=== PATIENT | female | born 1935 | race Caucasian/White ===

== ENCOUNTER 2020-11-08 12:33 | Inpatient (IN) | payer MEDICARE, OTHER, SELFPAY ==
[2020-11-08] VITALS (23 sets, daily range): BP systolic 113–178; BP diastolic 43–89; PULSE 45–78; RESP 11–25; TEMP 35.5–36.4; O2SAT 93–99; BMI 40.4
--- NOTE | 2020-11-08 | SCC_ITS ---
Procedure Done: Placement of 23 cm long 16 Yi AshSplit tunneled hemodialysis catheter in the right internal jugular vein Fluoroscopic guidance and interpretation for placement of catheter Ultrasound guidance to access the right internal jugular vein 56.2 seconds of fluoroscopic guidance, for a cumulative dose of 11.35 mGy, was provided to Dr. Cohen by the radiology department. C-arm images of the chest were saved for the patient's permanent record. JENNIE
--- NOTE | 2020-11-08 | SC_ITS ---
WS: [id number] C-arm fluoroscopy of the right chest for dialysis catheter insertion, 11/08/2020 Clinical Data: CVA Comparison: Portable chest, 11/08/2020 Findings: The right dialysis catheter has been inserted into the right internal jugular vein and ends in the craig perior vena cava. SC/C-arm FL for CVA [id number] Impression: Insertion of right dialysis catheter.
--- NOTE | 2020-11-08 12:57 | XR_ITS ---
WS: [id number] Portable AP upright chest, 11/08/2020 Clinical Data: CHF, dyspnea, fluid overload Comparison: PA and lateral chest, 02/12/2016. Findings: Bilateral basilar pleural opacities are present which may represent a combination of consol idation, atelectasis and effusion. The heart is slightly large. The pulmonary vascularity is not incr eased. No nodules or masses are seen. The aortic arch and descending aorta show calcification and tor tuosity. Midline sternotomy sutures and mediastinal clips are noted. There are monitor leads on the c hest wall. XR/XR chest 1V portable [id number] Impression: 1. Bilateral basilar pleural opacities which may represent consolidation, atele ctasis and/or effusion. 2. Atherosclerosis and cardiomegaly.
--- NOTE | 2020-11-08 12:59 | ECG_ITS ---
[facility] Test Date: 2020-11-08 Pat Name: Cindy Mena Department: Room: Gender: Female Sanitation Lead: : 1935 Requested By: Bebeto Dia Order Number: [id number] MD: Tamra Iyer M.D. Measurements Intervals Cosby Rate: 61 P: 240 NE: 141 QRS: -61 QRSD: 159 T: 110 QT: 479 QTc: 483 Interpretive Statements SINUS RHYTHM RIGHT BUNDLE BRANCH BLOCK [120+ ms QRS DURATION, UPRIGHT V1, 40+ ms S IN I/aVL/V4/V5/V6] LEFT ANTERIOR FASCICULAR BLOCK [QRS AXIS <= -45, QR IN I, RS IN II] MODERATE T-WAVE ABNORMALITY, CONSIDER LATERAL ISCHEMIA [-0.1+ mV T WAVE IN I/aVL/V5/V6] Compared to ECG 11/28/2015 05:35:01 Left anterior fascicular block now present T-wave abnormality now present Possible ischemia now present Junctional rhythm no longer present Left-axis deviation no longer present Electronically Signed On 11-09-2020 14:17:13 CDT by Tamra Iyer M.D. [email or web address][x] Media/store/NU/[id number] f
[2020-11-08 13:24] LABS: Basophils % 0.1 %; Eosinophils # 0.1 10^3/uL (0.0-0.8); Eosinophils % 0.9 %; Hematocrit 32.2 % (37.0-47.0); Hemoglobin 10.1 g/dL (11.5-15.3); Lymphocytes # 1.1 10^3/uL (0.8-4.8); Lymphocytes % 9.4 %; Mean Corpuscular HGB Conc 31.4 g/dL (30.0-36.0); Mean Corpuscular Hemoglobin 31.7 pg (28.0-34.0); Mean Corpuscular Volume 100.9 fL (81-99); Mean Platelet Volume 12.2 fL (7.4-10.4); Monocytes % 8.1 %; Neutrophils # 9.66 10^3/uL (1.8-7.7); Nucleated Red Blood Cells % 0 %; Platelet Count 143 10^3/cmm (130-400); Red Blood Count 3.19 10^6/uL (4.1-5.3); Red Cell Distribution Width 16.8 % (12.1-15.1); White Blood Count 11.9 10^3/uL (4.0-10.0)
[2020-11-08 13:38] LABS: INR 1.21 (0.8-1.2)
--- NOTE | 2020-11-08 13:52 | PC.PHAR ---
pt states she takes care of her own medications-pt states she has vitamin d 33218 units but hasnt taken it-states it is -ext med history doesnt show when last filled-medication on pts assisted living papers-pt states she takes lasix everyday-ext med history shows last filled on 11/01/20 30d/s for 20mg daily for 7 days then prn-pts assisted living papers has the pt takes lantus solostar 12 units hs pt states she uses 20 units hs-pt states she only takes sodium bicarb 325mg one tab bid-ext med history shows last filled on 07/12/20 30d/s for 3 tabs bid-pts assisted living paper has 2 tabs tid-pts assisted living papers has the pt takes voltassa 8.4gm bid,ultra kidney complex daily,and pepcid 20mg daily pt states she does not take those medications
[2020-11-08 13:56] LABS: Lactate (Lactic Acid level) 0.8 mmol/L (0.5-2.2)
[2020-11-08 13:58] LABS: Troponin(5th) Baseline 437 ng/L (0-10)
[2020-11-08 14:02] LABS: Alanine Aminotransferase 16 U/L (0-33); Albumin Level 3.5 g/dL (3.5-5.2); Alkaline Phosphatase 73 IU/L (35-105); Anion Gap 23.9 (5-19); Aspartate Amino Transferase 17 U/L (0-32); Calcium 7.7 mg/dL (8.5-10.5); Carbon Dioxide 12 mmol/L (22-29); Chloride 108 mmol/L (98-107); Globulin 2.6 g/dL (1.3-4.6); Glucose 123 mg/dL (65-115); Potassium 5.9 mmol/L (3.5-5.1); Sodium 138 mmol/L (136-145); Total Bilirubin 0.4 mg/dL (0.15-1.2); Total Protein 6.1 g/dL (6.6-8.7)
[2020-11-08 14:22] LABS: Osmolality Calculated 338 mOsm/kg (285-295)
[2020-11-08 14:23] LABS: Blood Urea Nitrogen 155 mg/dL (8-23)
[2020-11-08 14:32] LABS: NT Pro B Type Natriuretic Pept > 7000 pg/mL (0-450)
--- NOTE | 2020-11-08 14:55 | W.ED.SOB ---
HPI - SOB/Dyspnea General: Chief Complaint: Shortness of Breath/Dyspnea Stated Complaint: SOB Time Seen by Provider: 11/08/20 12:49 History of Present Illness: HPI Narrative: The patient is an 85-year-old female with past medical history end-stage renal disease but has been refusing to get a dialysis catheter placed and refusing dialysis for some time at her primary care doctors. She went to her doctor's office today and was sent to the ER after she was found to have crackles on exam and be fluid overloaded peripherally. The patient comes in today and says she just does not feel right but that she is fluid overloaded and is slightly short of breath. Denies chest pain. She also has history of diabetes, coronary artery disease with CABG in 2016, hypertension, hypothyroid, CVA in 2011. Recent note from primary care doctor says no history of CHF but in the past week was started on Lasix. The patient reports she does have a history of CHF MD elicited complaint: shortness of breath Pertinent past history: congestive heart failure and diabetes Timing: constant Severity: moderate Exacerbating factors: lying flat and exertion Relieving factors: nothing Known history of: congestive heart failure, diabetes and other (End-stage renal disease) Associated symptoms: Reports orthopnea; Deny chest pain, dizziness, extremity pain, fever(s), nausea, polyuria or vomiting Review of Systems General: Reports: 10 or more systems reviewed and unremarkable except in HPI and below Const: Denies: fever(s) Eyes: Denies: change in vision, blurry vision or eye redness ENMT: Denies: throat pain, swelling of lips/tongue, ear or mastoid pain or nasal congestion Card: Reports: orthopnea; Denies: chest pain Resp: Reports: dyspnea; Denies: productive cough or non-productive cough GI: Denies: nausea or vomiting : Denies: flank pain, difficulty voiding, urinary frequency or urinary urgency Musc: Denies: neck pain, back pain, extremity pain, joint pain, joint redness, limited range of motion or muscle weakness Skin/Breast: Denies: rash, pruritus, erythema, skin pain or skin tenderness Neuro: Denies: headache(s), numbness in extremities, weakness in extremities, sensory changes, difficulty walking, dizziness, confusion or Slurred speech present Psych: Denies: anxiety or depression Endo: Denies: polyuria All/Imm: Denies: urticaria, throat swelling or tongue swelling PFSH ED PFSH: Medical History CAD (coronary artery disease) CHF (congestive heart failure) Chronic kidney disease, stage 5, kidney failure CVA (cerebral vascular accident) DM type 2 (diabetes mellitus, type 2) Hypothyroidism Surgical History H/O hernia repair H/O: hysterectomy Hx of CABG Hx of tonsillectomy Family History Brother Myocardial infarction Chronic kidney disease (CKD) Social History Smoking and tobacco status: never smoked Alcohol intake: never Substance/Drug Use: never Lives independently: No Housing: Assisted Living Facility Marital status: / Physical Exam Const: COMMON NORMALS: no acute distress, average body habitus, patient oriented x3, no limitations, healthy appearing, alert and well nourished GENERAL APPEARANCE: cooperative, comfortable, well kempt and well developed ORIENTATION/CONSCIOUSNESS: Yes awake, Yes oriented to person, Yes oriented to place and Yes oriented to time HENMT: COMMON NORMALS: normocephalic, external ears normal and Normal external nose present HEAD & SCALP: normal to inspection and normocephalic NOSE: Normal external nose present EXTERNAL EAR: Yes external ears normal MOUTH: Normal oral and palatal mucosa present THROAT: posterior oropharynx normal Eye: COMMON NORMALS: Equal, round and reactive pupils present and EOMs intact bilaterally GENERAL EYE: appearance normal, both eyes and all related structures PUPIL: Yes Equal, round and reactive pupils present Neck/C-Spine: COMMON NORMALS: full ROM, no lymphadenopathy, no meningeal signs and no JVD GENERAL: Yes normal visual inspection Lymph: LYMPHATIC: no lymphadenopathy noted Chest: COMMONS NORMALS: normal inspection of the chest and normal palpation of entire chest wall Resp: COMMON NORMALS: normal respiratory effort, No retractions, No use of accessory muscles and percussion normal EFFORT & INSPECTION: Yes able to speak in complete sentences PERCUSSION: percussion normal OTHER: Mild crackles in lower mild crackles in lower lung carcamo. Cardio: COMMON NORMALS: no JVD, regular rate, regular rhythm, S1 normal heart sound present, S2 normal heart sound present and Peripheral pulses 2+ throughout RATE: regular rate RHYTHM: regular rhythm HEART SOUNDS: S1 normal heart sound present and S2 normal heart sound present PERIPHERAL PULSES: Peripheral pulses 2+ throughout GI: COMMON NORMALS: Normal to inspection, nondistended, normoactive bowel sounds present, Soft to palpation, non-tender and no masses INSPECTION: Yes normal to inspection PALPATION: Yes Soft to palpation : COMMON NORMALS: Yes no CVA tenderness BLADDER/KIDNEY EXAM: Yes no CVA tenderness Back/Pelvis: COMMON NORMALS: no CVA tenderness, thoracic and lumbar spine normal to inspection, no thoracic nor lumbar tenderness and thoraco-lumbar ROM normal Extremity: COMMON NORMALS: normal to inspection, full ROM, capillary refill normal, no joint enlargement and no pedal edema NARRATIVE EXTREMITY EXAM: 3+ pitting edema in lower extremities to knees. GENERAL: Yes normal exam except as noted Neuro: COMMON NORMALS: patient oriented x3, CN's II-XII intact bilaterally, moves all extremities, no focal motor deficits, no sensory deficits noted and gait normal SENSORIUM/ORIENTATION: Yes alert, Yes oriented to person, Yes oriented to place and Yes oriented to time MENINGEAL SIGNS: Yes no meningeal signs Psych: COMMON NORMALS: mental status grossly normal, Normal thought process present, cooperative, normal affect and speech normal APPEARANCE: Yes well kempt ATTITUDE: Yes calm SPEECH: Yes normal speech THOUGHT PROCESS: Normal thought process present Skin: COMMON NORMALS: no rashes or lesions noted GENERAL SKIN EXAM: no rashes or lesions noted Course Vital Signs: Vital signs: Vital Signs Temperature 97.3 F L 11/08/20 15:55 Pulse Rate 56 L 11/08/20 15:55 Respiratory Rate 16 11/08/20 15:55 Blood Pressure 113/51 11/08/20 15:55 Pulse Oximetry 95 11/08/20 15:55 MDM - SOB/Dyspnea MDM Narrative: Medical decision making narrative: The patient comes to the ER clearly fluid overloaded with peripheral edema and crackles in her lower lung carcamo. She has end-stage renal disease and has been refusing dialysis as outpatient and does not have a catheter placed. Today she feels she will accept it. BUN 155 creatinine 5.9, potassium 5.9. She was given IV Lasix and Kayexalate. Discussed with nephrology who recommends placing a tunneled catheter and she will see her and decide when dialysis will be. Discussed with Dr. Cohen who will place a tunneled catheter. Discussed with Dr. Patel who accepts for admission to the ICU Lab Data: Labs: Lab Results 11/08/20 11/08/20 11/08/20 Range/Units 13:15 13:15 13:15 WBC 11.9 H (4.0-10.0) 10^3/ uL RBC 3.19 L (4.1-5.3) 10^6/u L Hgb 10.1 L (11.5-15.3) g/dL Hct 32.2 L (37.0-47.0) % MCV 100.9 H (81-99) fL MCH 31.7 (28.0-34.0) pg MCHC 31.4 (30.0-36.0) g/dL RDW 16.8 H (12.1-15.1) % Plt Count 143 (130-400) 10^3/c mm MPV 12.2 H (7.4-10.4) fL Neut % (Auto) 81.0 % Lymph % (Auto) 9.4 % [place] % (Auto) 8.1 % Eos % (Auto) 0.9 % Baso % (Auto) 0.1 % Neut # (Auto) 9.66 H (1.8-7.7) 10^3/u L Lymph # (Auto) 1.1 (0.8-4.8) 10^3/u L [place] # (Auto) 1.0 H (0.2-0.9) 10^3/u L Eos # (Auto) 0.1 (0.0-0.8) 10^3/u L Baso # (Auto) 0.0 (0.0-0.1) 10^3/u L Nucleated RBC % (a uto) 0 % Nucleated RBCs # 0.0 /100WBC PT 15.70 H (12.1-14.9) SECO NDS INR 1.21 H (0.8-1.2) Sodium 138 (136-145) mmol/L Potassium 5.9 H (3.5-5.1) mmol/L Chloride 108 H (98-107) mmol/L Carbon Dioxide 12 L (22-29) mmol/L Anion Gap 23.9 H (5-19) BUN 155 H* (8-23) mg/dL Creatinine 5.9 H* (0.5-0.9) mg/dL GFR Calculation Not Reportable Glucose 123 H (65-115) mg/dL Calculated Osmolal ity 338 H (285-295) mOsm/k g Lactate (0.5-2.2) mmol/L Calcium 7.7 L (8.5-10.5) mg/dL Total Bilirubin 0.4 (0.15-1.2) mg/dL AST 17 (0-32) U/L ALT 16 (0-33) U/L Alkaline Phosphata se 73 (35-105) IU/L Troponin T Baselin e (0-10) ng/L Troponin T 120 Min [place] (0-10) ng/L Delta Troponin T (0-10) ABS# NT-Pro-B Natriuret Pep > 7000 H (0-450) pg/mL Total Protein 6.1 L (6.6-8.7) g/dL Albumin 3.5 (3.5-5.2) g/dL Globulin 2.6 (1.3-4.6) g/dL 11/08/20 11/08/20 11/08/20 Range/Units 13:15 13:15 15:10 WBC (4.0-10.0) 10^3/ uL RBC (4.1-5.3) 10^6/u L Hgb (11.5-15.3) g/dL Hct (37.0-47.0) % MCV (81-99) fL MCH (28.0-34.0) pg MCHC (30.0-36.0) g/dL RDW (12.1-15.1) % Plt Count (130-400) 10^3/c mm MPV (7.4-10.4) fL Neut % (Auto) % Lymph % (Auto) % [place] % (Auto) % Eos % (Auto) % Baso % (Auto) % Neut # (Auto) (1.8-7.7) 10^3/u L Lymph # (Auto) (0.8-4.8) 10^3/u L [place] # (Auto) (0.2-0.9) 10^3/u L Eos # (Auto) (0.0-0.8) 10^3/u L Baso # (Auto) (0.0-0.1) 10^3/u L Nucleated RBC % (a uto) % Nucleated RBCs # /100WBC PT (12.1-14.9) SECO NDS INR (0.8-1.2) Sodium (136-145) mmol/L Potassium (3.5-5.1) mmol/L Chloride (98-107) mmol/L Carbon Dioxide (22-29) mmol/L Anion Gap (5-19) BUN (8-23) mg/dL Creatinine (0.5-0.9) mg/dL GFR Calculation Glucose (65-115) mg/dL Calculated Osmolal ity (285-295) mOsm/k g Lactate 0.8 (0.5-2.2) mmol/L Calcium (8.5-10.5) mg/dL Total Bilirubin (0.15-1.2) mg/dL AST (0-32) U/L ALT (0-33) U/L Alkaline Phosphata se (35-105) IU/L Troponin T Baselin e 437 H* (0-10) ng/L Troponin T 120 Min [place] 403.5 H (0-10) ng/L Delta Troponin T -33.5 L (0-10) ABS# NT-Pro-B Natriuret Pep (0-450) pg/mL Total Protein (6.6-8.7) g/dL Albumin (3.5-5.2) g/dL Globulin (1.3-4.6) g/dL Discharge Plan Discharge Patient Disposition: Admitted As Inpatient Admit Provider: Ishan Cohen Clinical Impression: Chronic kidney disease, stage 5, kidney failure, Fluid overload, Acute hyperkalemia, Elevated troponin Condition: Stable Coding Level of Care Code ED Aluminum Can Collector for Chg Fwd Exam Comprehensive
--- NOTE | 2020-11-08 15:39 | PM.CONSULT ---
Providers/Reason For Consult Consulting Physician/Specialty*: Mali Castillo D.O., telenephrology Reason for Consult*: ESRD Attending Physician: Ishan Cohen MD Primary Care Provider: Kash Munoz DO History of Present Illness History of Present Illness Cindy Mena is a 85 year old female presenting to ER for treatment of ESRD. Had seen outpatient manager technology Dr Green in past and refused HD. She says she has changed her mind because she needs to feel better. + weakness, swelling, shortness of breath Meds/Allergies Home Medications and Allergies Home Medications Medication Instructions Recorded Confirmed Last Taken Type Lactobacillus rhamnosus GG 1 cap PO DAILY PRN 11/08/20 11/08/20 Unknown History [Culturelle] Thyroid Complex 1 tab PO DAILY 11/08/20 11/08/20 Unknown History acetaminophen [Tylenol Extra 1,000 mg PO Q6H PRN 11/08/20 11/08/20 Unknown History Strength] albuterol sulfate 2 puff INHALATION Q4H PRN 11/08/20 11/08/20 Unknown History carvedilol See Rx Instructions .ROUTE .COMPLEX 11/08/20 11/08/20 Unknown History ergocalciferol (vitamin D2) 50,000 unit PO Q7D 11/08/20 11/08/20 Unknown History fluticasone propionate [Flonase] 1 spray INTRANASAL BID PRN 11/08/20 11/08/20 Unknown History furosemide 20 mg PO QAM 11/08/20 11/08/20 11/08/20 History insulin glargine [Lantus Solostar 20 unit SUBCUT BEDTIME 11/08/20 11/08/20 11/07/20 History U-100 Insulin] levothyroxine 125 mcg PO DAILY 11/08/20 11/08/20 11/07/20 History nystatin [Nystop] See Rx Instructions .ROUTE .COMPLEX 11/08/20 11/08/20 Unknown History sodium bicarbonate 325 mg PO BID 11/08/20 11/08/20 11/07/20 History Allergies Allergy/AdvReac Type Severity Reaction Status Date / Time ibuprofen [From Advil] Allergy Unknown Verified 11/08/20 13:52 Penicillins Allergy Unknown Verified 11/08/20 13:52 Vitals/I&O/Wt Last Vital Signs Temp 97.6 F 11/08/20 12:46 Pulse 57 L 11/08/20 13:49 Resp 15 11/08/20 13:49 BP 154/64 11/08/20 13:49 Pulse Ox 98 11/08/20 13:49 Weight last 48 hrs Weight 90.718 kg Physical Exam Const: COMMON NORMALS: no acute distress GENERAL APPEARANCE: Edematous Data Imaging^: CXR: Radiologist's impression: 1. Bilateral basilar pleural opacities which may represent consolidation, atelectasis and/or effusion. 2. Atherosclerosis and cardiomegaly. pulmonary vasculature not increased A&P Additional A&P Information 1. ESRD, likely etiology diabetic nephropathy 2. Metabolic acidosis 3. Hyperkalemia 4. Volume overload 5. Anemia I spoke with patient in ER. She understands procedure for placement of tunneled dialysis catheter. She is agreeable to catheter placement. I explained indications for dialysis and hemodialysis procedure. She would like to proceed with hemodialysis and understands this treatment requires going to a dialysis center 3x weekly. Until HD is started, will give IV lasix, 50 mEq IV NaHCO3, oral kayeyxlate, increase oral NaHCO3. Renal ultrasound ordered - there is no renal imaging in our system. Labs to include PTH, phos, hepatitis serologies, iron studies, B12 Consult Attestations Medical Necessity Statement: see above Time Spent in Patient Care: Greater than 35 minutes Coding Level of Care Code Acute Manufacturing Maintenance Manager for Shilpa Bowden
[2020-11-08] MEDS: sodium polystyrene sulfonate 15 gm/60 mL Btl PO (15:48)
--- NOTE | 2020-11-08 15:50 | PC.NURSE ---
pt taken by OPS for dialysis port placement
[2020-11-08 15:52] LABS: Troponin 5 2HR 403.5 ng/L (0-10)
[2020-11-08 15:53] LABS: Troponin 5 2HR Delta -33.5 ABS# (0-10)
--- NOTE | 2020-11-08 15:54 | P.HP_ITS ---
Providers/Chief Complaint Primary Care Provider: Kash Munoz DO Chief Complaint: SOB History of Present Illness Pleasant 85-year-old lady with history of CAD, CABG, CHF, EF 40-50% in 2016, CVA, DM 2, ESRD following with nephrology Dr. Green, previously with recommended hemodialysis although she had been reluctant to start, has been getting progressively more short of breath, had seen her primary provider last week and at the office found to have fluid overload, edema, lungs sounding wet and with rhonchi, was started on course of prednisone, albuterol inhaler, Lasix 20mg, she reports subsequently on and off urine output, sometimes up to 3 times a day with the medication. In ER she is noted fluid overloaded, with creatinine 5.9, hyperkalemia 5.9, metabolic acidosis, anion gap 23.9, bicarb 12. Incidentally noted NT proBNP more than 7000, troponin IV 137 of of unclear significance in the setting of renal dysfunction. She denies any chest pain or pressure. She has been short of breath. Has anasarca with swelling in lower extremities up to thighs. She received Lasix, Kayexalate in ER. She reports would now be agreeable to hemodialysis if recommended and so nephrology and surgery are consulted in ER to assist her with this. She lives in assisted living. She states she takes all her home medications except for insulin. With regards to CODE STATUS she would not want to have repeat resuscitation attempts. Nor would she want protracted life support without chance of recovery. She states she has also advanced directives written out. She has had her COVID-19 vaccinations completed. Review of Systems Const: Denies: fever(s), chills, body aches or malaise Eyes: Denies: change in vision or eye redness ENMT: Denies: throat pain, oral sores or ear or mastoid pain Card: Reports: edema and dyspnea on exertion; Denies: chest pain or pre-syncope Resp: Reports: dyspnea; Denies: productive cough, change in phlegm color or hemoptysis GI: Reports: vomiting (1 episode this morning); Denies: abdominal pain, nausea, diarrhea, constipation, hematochezia or melena : Denies: flank pain, urinary frequency or hematuria Musc: Denies: back pain, joint swelling or joint redness Skin/Breast: Denies: rash, sores or new lesions Neuro: Denies: headache(s), numbness in extremities, weakness in extremities, dizziness, confusion or seizure-like activity Endo: Denies: polyuria or polydipsia Harlan/Lymph: Denies: easy bleeding or purpura All/Imm: Denies: urticaria, throat swelling or tongue swelling Medications/Allergies Home Medications Medication Instructions Recorded Confirmed Last Taken Type Lactobacillus rhamnosus GG 1 cap PO DAILY PRN 11/08/20 11/08/20 Unknown History [Culturelle] Thyroid Complex 1 tab PO DAILY 11/08/20 11/08/20 Unknown History acetaminophen [Tylenol Extra 1,000 mg PO Q6H PRN 11/08/20 11/08/20 Unknown History Strength] albuterol sulfate 2 puff INHALATION Q4H PRN 11/08/20 11/08/20 Unknown History carvedilol See Rx Instructions .ROUTE .COMPLEX 11/08/20 11/08/20 Unknown History ergocalciferol (vitamin D2) 50,000 unit PO Q7D 11/08/20 11/08/20 Unknown History fluticasone propionate [Flonase] 1 spray INTRANASAL BID PRN 11/08/20 11/08/20 Unknown History furosemide 20 mg PO QAM 11/08/20 11/08/20 11/08/20 History insulin glargine [Lantus Solostar 20 unit SUBCUT BEDTIME 11/08/20 11/08/20 11/07/20 History U-100 Insulin] levothyroxine 125 mcg PO DAILY 11/08/20 11/08/20 11/07/20 History nystatin [Nystop] See Rx Instructions .ROUTE .COMPLEX 11/08/20 11/08/20 Unknown History sodium bicarbonate 325 mg PO BID 11/08/20 11/08/20 11/07/20 History Allergies Allergy/AdvReac Type Severity Reaction Status Date / Time ibuprofen [From Advil] Allergy Unknown Verified 11/08/20 13:52 Penicillins Allergy Unknown Verified 11/08/20 13:52 PFSH Acute PFSH: Medical History CAD (coronary artery disease) CHF (congestive heart failure) Chronic kidney disease, stage 5, kidney failure CVA (cerebral vascular accident) DM type 2 (diabetes mellitus, type 2) Hypothyroidism Surgical History H/O hernia repair H/O: hysterectomy Hx of CABG Hx of tonsillectomy Family History Brother Myocardial infarction Chronic kidney disease (CKD) Social History Smoking and tobacco status: never smoked Alcohol intake: never Substance/Drug Use: never Lives independently: No Housing: Assisted Living Facility Marital status: / Vitals/I&O/Wt Last Vital Signs Temp 97.6 F 11/08/20 12:46 Pulse 57 L 11/08/20 13:49 Resp 15 11/08/20 13:49 BP 154/64 11/08/20 13:49 Pulse Ox 98 11/08/20 13:49 Weight last 48 hrs Weight 90.718 kg Physical Exam Narrative: EXAM NARRATIVE: [id number] at bedside Const: COMMON NORMALS: no acute distress and patient oriented x3 GENERAL APPEARANCE: frail appearing NUTRITIONAL APPEARANCE: obese morbidly obese HENMT: COMMON NORMALS: oropharynx normal Neck/C-Spine: COMMON NORMALS: no JVD Resp: COMMON NORMALS: normal respiratory effort AUSCULTATION: crackles and diminished lung sounds Cardio: COMMON NORMALS: no JVD, regular rhythm, S1 normal heart sound present, S2 normal heart sound present and No murmurs present (Cardio) RHYTHM: regular rhythm HEART SOUNDS: S1 normal heart sound present and S2 normal heart sound present GI: COMMON NORMALS: Normal to inspection, nondistended, normoactive bowel sounds present, Soft to palpation and non-tender PALPATION: Yes Soft to palpation OTHER: Large pannus Extremity: COMMON NORMALS: no joint enlargement GENERAL: Yes edema (4+ LE edema extending gradually up to mid thighs) Neuro: COMMON NORMALS: patient oriented x3 and moves all extremities Skin: COMMON NORMALS: no rashes or lesions noted GENERAL SKIN EXAM: no rashes or lesions noted Data : 11/08/20 13:15 11/08/20 13:15 A&P Assessment and plan (1) Dyspnea: This is suspected secondary due to tubular vision, fluid overload. She does have mild leukocytosis, reports some cough, although otherwise afebrile, no other respiratory complaints. No other signs of COVID-19. Completed her vaccinations. Discussed with her lower possibility of concomitant pneumonia, although this appears less likely currently. Will monitor for now. Will reassess chest x- ray. In case suspicion persists or other signs of pneumonia, will add antibiotic. Additionally treat CHF, ESRD. Status: Acute (2) Acute exacerbation of CHF (congestive heart failure): Acute systolic congestive heart failure exacerbation. Anasarca. Received 40 mg IV push Lasix in ER. Will continue with Lasix, she is being assessed and prepared for possible hemodialysis given history of progressed chronic kidney disease, previously recommendation for dialysis, and currently other comorbidities. We will go ahead and request echocardiogram given CHF, last echo in 2016 showing 40-50% EF. Noted troponin elevation, although no chest pain, suspect this is related to demand ischemia in the setting of progressive renal failure. Complete troponin EKG series. TTE as above. Continue cardiac medications. Check TSH. Status: Acute (3) Chronic kidney disease, stage 5, kidney failure: She wanted me to discuss also with her primary provider with regards to dialysis, and we did. Appreciate nephrology consultation. Surgical consultation for access. Additional studies requested by nephrology including renal ultrasound. Status: Acute (4) Acute hyperkalemia: Received Lasix, Kayexalate. Appreciate nephrology recommendation. Continue bicarbonate. Preparations for hemodialysis. Status: Acute (5) Elevated troponin: Noted troponin elevation, although no chest pain, suspect this is related to demand ischemia in the setting of progressive renal failure. Complete troponin EKG series. TTE as above. Continue CAD medications. Status: Acute Additional A&P Information Intertrigo: Yeast infection under pannus, continue nystatin. DM2: Continue insulin, add SSI CAD, status post CABG Chronic systolic CHF History of CVA Hypothyroidism: Check TSH Attestations Medical Necessity Statement*: Admission of over 2 midnights is going to be needed for assessment management of progression of chronic kidney disease, acute CHF exacerbation in a lady of advanced age with underlying history of CAD and other comorbidities. Coding Level of Care Code Acute Bpm Architect for [facility] Fwd Diagnoses Dyspnea R06.00 Acute exacerbation of CHF (congestive heart failure) I50.9 Chronic kidney disease, stage 5, kidney failure N18.5 Acute hyperkalemia E87.5 Elevated troponin R77.8
[2020-11-08] MEDS: sodium chloride 0.9% (100 ml) 100 ML 30 ML (15:55)
--- NOTE | 2020-11-08 16:02 | ANES.PREANE2 ---
Pre-Anesthetic Assessment Pre-Anesthetic Assessment: Height/Weight: Height 1.5 m Weight 90.718 kg Temp Pulse Resp BP Pulse Ox 97.6 F 59 L 25 H 158/49 99 11/08/20 12:46 11/08/20 15:50 11/08/20 15:50 11/08/20 15:50 11/08/20 15:50 Preop Diagnosis: arf Proposed Procedure: Operation Date: 11/08/20 16:00 Proposed Procedures p Dialysis Catheter Insertion(Not Applicable) - Ishan Cohen MD Familial anesthetic complications: none Was Beta Marion taken within 24 hours: Yes Was Clonidine taken within 24 hours: N/A Last Intake: 15:00 Social: Social History: No alcohol and No tobacco Exam: Pre-Anes Outpt Exam: alert, oriented x 3, clear to auscultation bilaterally (diminished) and regular rate & rhythm Airway: Submandibular: WNL Cervical ROM: WNL MP: 2 Dentition: False Pulmonary: Pulmonary: JOHNS, Orthopnea and SOB CV/HEM: CV/HEM: CAD (CABGx3 5 years ago), CHF, HTN and HI : : Chronic renal failure Hepatic: Hepatic: None reported GI: GI: GERD Metabolic: Metabolic: DM ([id number]) and Morbid obesity Musc/skel: Musc/skel: Lower Back Pain and OA/DJD Neuropsych: Neuropsych: CVA (2011 right side weakness) Anesthetic Plan: ASA status: 4E Anesthesia: MAC PFS Anesthesia PFSH: Medical History (Updated 11/08/20 @ 16:06 by Joey Patel MD) CAD (coronary artery disease) Chronic kidney disease, stage 5, kidney failure CVA (cerebral vascular accident) DM type 2 (diabetes mellitus, type 2) Hypothyroidism Surgical History (Updated 11/08/20 @ 16:06 by Joey Patel MD) H/O hernia repair H/O: hysterectomy Hx of CABG Hx of tonsillectomy Family History (Updated 11/08/20 @ 16:07 by Joey Patel MD) Brother Myocardial infarction Chronic kidney disease (CKD) Social History Smoking and tobacco status: never smoked Alcohol intake: never Substance/Drug Use: never Lives independently: No Housing: Assisted Living Facility Marital status: / Data Anesthesia CBC & Chem 7: 11/08/20 13:15 11/08/20 13:15 Other Labs: Laboratory Results - last 48 hr 11/08/20 11/08/20 11/08/20 13:15 13:15 13:15 WBC 11.9 H RBC 3.19 L Hgb 10.1 L Hct 32.2 L MCV 100.9 H MCH 31.7 MCHC 31.4 RDW 16.8 H Plt Count 143 MPV 12.2 H Neut % (Auto) 81.0 Lymph % (Auto) 9.4 Brooke % (Auto) 8.1 Eos % (Auto) 0.9 Baso % (Auto) 0.1 Neut # (Auto) 9.66 H Lymph # (Auto) 1.1 Brooke # (Auto) 1.0 H Eos # (Auto) 0.1 Baso # (Auto) 0.0 Nucleated RBC % (auto) 0 Nucleated RBCs # 0.0 PT 15.70 H INR 1.21 H Sodium 138 Potassium 5.9 H Chloride 108 H Carbon Dioxide 12 L Anion Gap 23.9 H BUN 155 H* Creatinine 5.9 H* GFR Calculation Not Reportable Glucose 123 H Calculated Osmolality 338 H Lactate Calcium 7.7 L Total Bilirubin 0.4 AST 17 ALT 16 Alkaline Phosphatase 73 Troponin T Baseline Troponin T 120 Minute Delta Troponin T NT-Pro-B Natriuret Pep > 7000 H Total Protein 6.1 L Albumin 3.5 Globulin 2.6 11/08/20 11/08/20 11/08/20 13:15 13:15 15:10 WBC RBC Hgb Hct MCV MCH MCHC RDW Plt Count MPV Neut % (Auto) Lymph % (Auto) Brooke % (Auto) Eos % (Auto) Baso % (Auto) Neut # (Auto) Lymph # (Auto) Brooke # (Auto) Eos # (Auto) Baso # (Auto) Nucleated RBC % (auto) Nucleated RBCs # PT INR Sodium Potassium Chloride Carbon Dioxide Anion Gap BUN Creatinine GFR Calculation Glucose Calculated Osmolality Lactate 0.8 Calcium Total Bilirubin AST ALT Alkaline Phosphatase Troponin T Baseline 437 H* Troponin T 120 Minute 403.5 H Delta Troponin T -33.5 L NT-Pro-B Natriuret Pep Total Protein Albumin Globulin Cardiac Studies: No Data to Display
--- NOTE | 2020-11-08 16:18 | P.CONIM_ITS ---
Providers/Reason For Consult Consulting Physician/Specialty*: General Surgery Dr. Cohen Reason for Consult*: ESRD Attending Physician: Ishan Cohen MD Primary Care Provider: Kash Munoz DO History of Present Illness History of Present Illness Cindy Mena is a 85 year old female who has end-stage renal disease who had been refusing dialysis until now. Patient presented to emergency room with shortness of breath and decreased urine output. She was noted to have elevated troponin and creatinine was 5.9. Patient has finally agreed to dialysis.. No prior known history of central line placement or clavicle fractures, patient has had a prior CABG Review of Systems General: Reports: 10 or more systems reviewed and unremarkable except in HPI and below Meds/Allergies Home Medications and Allergies Home Medications Medication Instructions Recorded Confirmed Last Taken Type Lactobacillus rhamnosus GG 1 cap PO DAILY PRN 11/08/20 11/08/20 Unknown History [Culturelle] Thyroid Complex 1 tab PO DAILY 11/08/20 11/08/20 Unknown History acetaminophen [Tylenol Extra 1,000 mg PO Q6H PRN 11/08/20 11/08/20 Unknown History Strength] albuterol sulfate 2 puff INHALATION Q4H PRN 11/08/20 11/08/20 Unknown History carvedilol See Rx Instructions .ROUTE .COMPLEX 11/08/20 11/08/20 Unknown History ergocalciferol (vitamin D2) 50,000 unit PO Q7D 11/08/20 11/08/20 Unknown History fluticasone propionate [Flonase] 1 spray INTRANASAL BID PRN 11/08/20 11/08/20 U nknown History furosemide 20 mg PO QAM 11/08/20 11/08/20 11/08/20 History insulin glargine [Lantus Solostar 20 unit SUBCUT BEDTIME 11/08/20 11/08/20 11/07/20 History U-100 Insulin] levothyroxine 125 mcg PO DAILY 11/08/20 11/08/20 11/07/20 History nystatin [Nystop] See Rx Instructions .ROUTE .COMPLEX 11/08/20 11/08/20 Unknown History sodium bicarbonate 325 mg PO BID 11/08/20 11/08/20 11/07/20 History Allergies Allergy/AdvReac Type Severity Reaction Status Date / Time ibuprofen [From Advil] Allergy Unknown Verified 11/08/20 13:52 Penicillins Allergy Unknown Verified 11/08/20 13:52 PFSH Acute PFSH: Medical History CAD (coronary artery disease) CHF (congestive heart failure) Chronic kidney disease, stage 5, kidney failure CVA (cerebral vascular accident) DM type 2 (diabetes mellitus, type 2) Hypothyroidism Surgical History H/O hernia repair H/O: hysterectomy Hx of CABG Hx of tonsillectomy Family History Brother Myocardial infarction Chronic kidney disease (CKD) Social History Smoking and tobacco status: never smoked Alcohol intake: never Substance/Drug Use: never Lives independently: No Housing: Assisted Living Facility Marital status: / Vitals/I&O/Wt Last Vital Signs Temp 97.6 F 11/08/20 12:46 Pulse 59 L 11/08/20 15:50 Resp 25 H 11/08/20 15:50 BP 158/49 11/08/20 15:50 Pulse Ox 99 11/08/20 15:50 Weight last 48 hrs Weight 200 lb Physical Exam Narrative: EXAM NARRATIVE: HEENT: Normocephalic Eye: Sclera /conjunctiva normal Respiratory and chest: Bilateral clear breath sounds on auscultation Cardiovascular: Normal S1 and S2 heart sounds Abdomen: Soft to palpation Neurological: Oriented to place person and time Skin: Intact, no lesions appreciated on gross exam A&P Assessment and plan (1) Chronic kidney disease, stage 5, kidney failure: 85-year-old female with end-stage renal disease, elevated troponin who has now agreed to dialysis. Plan for tunneled hemodialysis catheter placement under MAC Procedure, risks, benefits and alternatives have been discussed with the patient who wishes to proceed with surgery. 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
[2020-11-08] MEDS: vancomycin 1,000 MG in sodium chloride 0.9% 250 ML 250 MG IV (16:27)
--- NOTE | 2020-11-08 17:15 | P.OP_ITS ---
Operative Report Date of procedure: November 08, 2020 Pre-op Diagnosis: Acute renal failure Post-op diagnosis: same Procedure Done: Placement of 23 cm long 16 Dominican AshSplit tunneled hemodialysis catheter in the right internal jugular vein Fluoroscopic guidance and interpretation for placement of catheter Ultrasound guidance to access the right internal jugular vein Pathology: none sent Surgeon: Ishan Cohen Anesthesia: MAC Condition: stable Disposition: PACU Procedure: The patient was taken to the operating room and placed under MAC after IV antibiotic had been administered. The chest and neck were prepped and draped in a sterile manner bilaterally. An ultrasound of the right internal jugular vein revealed patent flow, no thrombus identified. Using introducer needle the internal jugular vein on the right side was accessed and guidewire passed into the right atrium under fluoroscopy. Under fluoroscopy the location for the dialysis catheter was marked. Using 11 blade a skin incision was extended at the vein access site as well as the previously marked location on the right chest wall. The dialysis catheter was attached to the tunneler and passed subcutaneously, exiting at the venous access site. Serial dilators were passed over the guidewire under fluoroscopy. Finally the dilator peel-away sheath was passed over the guidewire and the inner dilator and guidewire was removed and the dialysis catheter was introduced into the right internal jugular vein as the peel-away sheath was removed. The tip of the catheter was noted to be in the right atrium. Both ports of the catheter elina blood and flushed easily. The catheter was sutured to the skin using 2-0 Prolene and the venous access site was closed with 4-0 Monocryl and Dermabond. A total of 5 mL of 1:10,000 heparin was injected into the 2 ports under dialysis catheter. Fluoroscopic guidance and interpretation for passage of guidewire and dilator and placement of catheter in the right atrium.
--- NOTE | 2020-11-08 17:30 | PC.NURSE ---
Pt arrives to IU from OR. New HD cath noted in right chest. Iv noted in left AC patent and infusing Vancomycin and NS. Pt alert and oriented. Edema noted bilat legs, 3+ pitting edema. New skin tear noted left hand. Groin area foul smelling with excoriation, area cleansed intra dry applied. Skin ulcer noted on bottom.
--- NOTE | 2020-11-08 17:31 | ECG_ITS ---
[facility] Test Date: 2020-11-08 Pat Name: Cindy Mena Department: Room: [facility]09 Gender: Female Call Centre Supervisor: : 1935 Requested By: Bebeto Dia Order Number: [id number] Hi MD: Tamra Iyer M.D. Measurements Intervals [place] Rate: 53 P: 260 MD: 159 QRS: -64 QRSD: 162 T: 102 QT: 504 QTc: 476 Interpretive Statements SINUS BRADYCARDIA MARKED LEFT AXIS DEVIATION [QRS AXIS < -30] INTRAVENTRICULAR CONDUCTION DELAY [130+ ms QRS DURATION] Compared to ECG 11/08/2020 15:07:42 Left-axis deviation now present Intraventricular conduction delay now present Right bundle-branch block no longer present Left anterior fascicular block no longer present Left ventricular hypertrophy no longer present ST (T wave) deviation no longer present Electronically Signed On 11-10-2020 7:32:41 CDT by Tamra Iyer M.D. [id number]
--- NOTE | 2020-11-08 18:33 | ANE.PACU2 ---
Inpatient post-anesthesia follow up: Airway intact: Yes Vital signs: Temperature 97.3 F Pulse Rate [Left B rachial] 78 Pulse Rate 56 Respiratory Rate 16 Blood Pressure [Ri ght Arm] 153/63 Blood Pressure 113/51 Pulse Oximetry 95 Oxygen Delivery Me thod Room Air Oxygen Flow Rate Fraction of Inspir ed Oxygen Hydration adequate: Yes Nausea and vomiting: No Pain level: 2 Mental status: Baseline
[2020-11-08 18:34] LABS: Glucose Point of Care 140 mg/dL (70-110)
[2020-11-08] MEDS: ondansetron 2 mg/ML SDV 2 mL 4 MG IVP (18:36)
[2020-11-08] MEDS: sodium bicarbonate 650 mg Tablet PO ×2 (18:37→21:09)
[2020-11-08] MEDS: heparin 5,000 unit/mL INJ 1 mL 5000 UNIT SUBCUT (18:37)
[2020-11-08] MEDS: sodium bicarbonate 50 MEQ in sodium chloride 0.45% 1,000 ML 100 MEQ IV (18:38)
--- NOTE | 2020-11-08 18:59 | ECG_ITS ---
[facility] Test Date: 2020-11-08 Pat Name: Cindy Mena Department: Room: [facility]09 Gender: Female Office Clin Asst: : 1935 Requested By: Bebeto Dia Order Number: [id number] Hi MD: Tamra Iyer M.D. Measurements Intervals [place] Rate: 56 P: 241 AL: 135 QRS: -59 QRSD: 158 T: 104 QT: 490 QTc: 477 Interpretive Statements JUNCTIONAL BRADYCARDIA RIGHT BUNDLE BRANCH BLOCK [120+ ms QRS DURATION, UPRIGHT V1, 40+ ms S IN I/aVL/V4/V5/V6] LEFT ANTERIOR FASCICULAR BLOCK [QRS AXIS <= -45, QR IN I, RS IN II] LEFT VENTRICULAR HYPERTROPHY AND ST-T CHANGE [VOLTAGE CRITERIA PLUS ST/T ABNORMALITY] Compared to ECG 11/08/2020 13:36:24 Left ventricular hypertrophy now present ST (T wave) deviation now present Sinus rhythm no longer present T-wave abnormality no longer present Possible ischemia no longer present Electronically Signed On 11-10-2020 7:32:59 CDT by Tamra Iyer M.D. [id number]
--- NOTE | 2020-11-08 19:28 | PC.NURSE ---
Report given to WAYNE Peña
[2020-11-08 19:29] LABS: Troponin 5 6HR 399.4 ng/L (0-10); Troponin 5 6HR Delta -37.6 ng/L (0-12)
[2020-11-08 20:09] LABS: Calcium 7.5 mg/dL (8.5-10.5); Carbon Dioxide 12 mmol/L (22-29); Chloride 110 mmol/L (98-107); Glucose 145 mg/dL (65-115); Sodium 139 mmol/L (136-145)
[2020-11-08 20:30] LABS: Anion Gap 22.7 (5-19); Osmolality Calculated 340 mOsm/kg (285-295); Potassium 5.7 mmol/L (3.5-5.1)
[2020-11-08 20:31] LABS: Blood Urea Nitrogen 150 mg/dL (8-23)
[2020-11-08 20:47] LABS: Glucose Point of Care 146 mg/dL (70-110)
[2020-11-08 20:58] LABS: Iron 44 ug/dL (37-145); Percent Saturation 20.1 % (20-50); Total Iron Binding Capacity 218 mcg/dl; Unsaturated Iron Binding 174 ug/dL (112-347)
[2020-11-08] MEDS: nystatin powder 15 gm Btl 1 APPLIC TOPICAL (21:08)
[2020-11-08] MEDS: insulin glargine 100 units/1 mL 20 UNIT SUBCUT (21:09)
[2020-11-09] VITALS (31 sets, daily range): BP systolic 100–162; BP diastolic 40–71; PULSE 46–68; RESP 11–28; TEMP 36.3–37.2; O2SAT 91–96
[2020-11-09] MEDS: FUROsemide 10 mg/mL SDV 4mL 40 MG IVP ×2 (01:58→15:19)
--- NOTE | 2020-11-09 02:06 | PC.NURSE ---
ASSUMING CARE Patient is resting in bed with visitors at bedside. Alert and oriented x 4 and on room air. 1/2 NS with 50 mEq of sodium bicarbonate at 100 mL/hour. Right subclavian tunneled HD cath in place with dressing dry and intact.
--- NOTE | 2020-11-09 03:32 | PC.NURSE ---
FAMILY Patients sister in law, Telma Rosado called. Patient gave permission for nurse to update Telma on her condition.
[2020-11-09 05:01] LABS: Basophils % 0.1 %; Eosinophils # 0.2 10^3/uL (0.0-0.8); Hematocrit 30.2 % (37.0-47.0); Hemoglobin 9.3 g/dL (11.5-15.3); Lymphocytes % 11.4 %; Mean Corpuscular HGB Conc 30.8 g/dL (30.0-36.0); Mean Corpuscular Hemoglobin 31.5 pg (28.0-34.0); Mean Corpuscular Volume 102.4 fL (81-99); Mean Platelet Volume 11.7 fL (7.4-10.4); Monocytes # 0.8 10^3/uL (0.2-0.9); Monocytes % 9.9 %; Neutrophils # 6.36 10^3/uL (1.8-7.7); Neutrophils % 76.1 %; Nucleated Red Blood Cells % 0 %; Platelet Count 123 10^3/cmm (130-400); Red Blood Count 2.95 10^6/uL (4.1-5.3); White Blood Count 8.4 10^3/uL (4.0-10.0)
[2020-11-09 05:20] LABS: Ferritin 372 ng/mL (15-150); Iron 43 ug/dL (37-145)
--- NOTE | 2020-11-09 05:24 | PC.NURSE ---
BLADDER SCAN/CATH Patient only able to dribble urine throughout the night and tells nurse that she normally doesnt pee very much. This morning, patient states that she feels like she has to go but is still unable. Bladder scan done, about [address] Jimenez notified and gave order to straight cath patient.
[2020-11-09 05:25] LABS: Alanine Aminotransferase 13 U/L (0-33); Albumin Level 3.2 g/dL (3.5-5.2); Alkaline Phosphatase 72 IU/L (35-105); Anion Gap 23.1 (5-19); Aspartate Amino Transferase 18 U/L (0-32); Calcium 7.3 mg/dL (8.5-10.5); Carbon Dioxide 15 mmol/L (22-29); Chloride 109 mmol/L (98-107); Globulin 2.4 g/dL (1.3-4.6); Glucose 65 mg/dL (65-115); Potassium 5.1 mmol/L (3.5-5.1); Sodium 142 mmol/L (136-145); Thyroid Stimulating Hormone 11.55 uIU/mL (0.27-4.20); Total Bilirubin 0.3 mg/dL (0.15-1.2); Total Protein 5.6 g/dL (6.6-8.7)
[2020-11-09 05:32] LABS: Osmolality Calculated 343 mOsm/kg (285-295)
[2020-11-09 05:35] LABS: Blood Urea Nitrogen 155 mg/dL (8-23); Phosphorus 8.5 mg/dL (2.5-4.5)
[2020-11-09 06:16] LABS: Hepatitis B Surface AB 3.5 (11.5-1000); Hepatitis B Surface Antigen Non-Reactive (Nonreactive); Hepatitis C Virus Antibody Non-Reactive (Nonreactive)
[2020-11-09] MEDS: heparin 5,000 unit/mL INJ 1 mL 5000 UNIT SUBCUT ×2 (06:17→17:50)
--- NOTE | 2020-11-09 07:00 | USCV_ITS ---
Cindy Mena Age: 85 Gender: F : 1935 Exam Date: 11/09/2020 05:38 Ordering Phys: Joey Patel MD Technologist: Abigail Bishop Exam Location: [facility] [place] Indication: CHF BP: 111 / 60 HR: 51 Rhythm: Sinus Technical Quality: Good MEASUREMENTS (Male / Female) Normal Values 2D ECHO LV Diastolic Diameter PLAX 4.9 cm 4.2 - 5.9 / 3.9 - 5.3 cm LV Systolic Diameter PLAX 2.9 cm LV Chamber Size 3.6 cm IVS Diastolic Thickness 1.0 cm 0.6 - 1.0 / 0.6 - 0.9 cm IVS Systolic Thickness 2.0 cm LVPW Diastolic Thickness 1.1 cm 0.6 - 1.0 / 0.6 - 0.9 cm LVPW Systolic Thickness 1.7 cm RV Chamber Size 2.4 cm LVOT Diameter 2.0 cm LV Ejection Fraction 2D Teich 73.1 % LV Ejection Fraction MOD 2C 58.3 % LV Ejection Fraction 2C AL 58.1 % LA Diameter 3.5 cm LA Width 2.8 cm LA Height 4.5 cm RA Width 2.9 cm RA Height 4.8 cm Aorta at Sinotubular Diameter 2.8 cm M-MODE LV Diastolic Diameter MM 4.6 cm 4.2 - 5.9 / 3.9 - 5.3 cm LV Systolic Diameter MM 3.5 cm LV Ejection Fraction MM Teich 48.9 % IVS Diastolic Thickness MM 1.0 cm 0.6 - 1.0 / 0.6 - 0.9 cm IVS Systolic Thickness MM 1.7 cm LVPW Diastolic Thickness MM 1.2 cm 0.6 - 1.0 / 0.6 - 0.9 cm LVPW Systolic Thickness MM 1.5 cm RV Diastolic Diameter MM 2.3 cm Aortic Annulus Diameter 2.9 cm LA Ao Ratio MM 1.2 MV E Point Septal Separation 1.1 cm DOPPLER AV Peak Velocity 253.0 cm/s LVOT Peak Velocity 44.0 cm/s AV Area Cont Eq vti 0.7 cm squared AV Area Cont Eq pk 0.6 cm squared MV Area PHT 3.2 cm squared Mitral E to A Ratio 2.3 MV E' Velocity 159.0 cm/s TR Peak Velocity 216.7 cm/s TR Peak Gradient 18.8 mmHg TR Mean Velocity 160.7 cm/s TR Mean Gradient 12.0 mmHg TR Velocity Time Integral 90.5 cm TV Peak E Velocity 77.0 cm/s Right Atrial Pressure 8.0 mmHg Pulmonary Artery Systolic Pressu 26.8 mmHg PV Peak Velocity 36.0 cm/s RV Acceleration Time 0.2 s RV Ejection Time 0.4 s RV AcT/ET 0.5 FINDINGS Left Ventricle Mild left ventricular hypertrophy. Moderate diffuse hypokinesia of the septum. Left ventricular ejection fraction was around 45 to 50%.Grade III/IV diastolic dysfunction (restrictive filling pattern), severely elevated filling pressures. Right Ventricle Normal right ventricular size and systolic function. Right Atrium Mildly increased right atrial size. Left Atrium Mildly increased left atrial size. Mitral Valve Thickened mitral valve. Moderate mitral annular calcification. Moderate-severe mitral valve regurgitation. Aortic Valve Moderate aortic valve calcification. Possibly severe low gradient aortic valve stenosis with a valve area of 0.7 cm squared. Peak velocity of 2.53 m/s with a peak gradient of 26 and a mean gradient of 13 mmHg Tricuspid Valve Moderate tricuspid valve regurgitation. Pulmonic Valve Trace pulmonary valve regurgitation. Pericardium No pericardial effusion. Aorta Normal aortic annulus size. CONCLUSIONS Normal LV size with diminished ejection fraction of 45 to 50%. Mild left ventricular hypertrophy with a grade 3 diastolic dysfunction. Diffuse hypokinesia of the septum. Possibly severe low gradient aortic valve stenosis with a valve area of 0.7 cm squared. Peak velocity of 2.53 m/s with a peak gradient of 26 and a mean gradient of 13 mmHg. Moderate aortic valve calcification. Moderate tricuspid valve regurgitation. Moderate mitral annular calcification. Moderate-severe mitral valve regurgitation. Estimated pulmonary artery peak systolic pressure of 27 mmHg There is no pericardial effusion. There are no intracardiac masses. Mid to the study from 11/20/2015, there is improvement in the LV ejection fraction, worsening of the aortic valve stenosis and diastolic dysfunction Dr Demar Grimes MD [facility] (Electronically Signed) Final Date: 09 November 2020 10:19 S
[2020-11-09] MEDS: ondansetron 2 mg/ML SDV 2 mL 4 MG IVP (08:02)
[2020-11-09] MEDS: heparin, porcine 1,000 unit/mL INJ 10 mL HE (08:05)
--- NOTE | 2020-11-09 08:39 | P.PN_ITS ---
Subjective Subjective: Interval history: Just underwent hemodialysis this morning. 800 mL removed, then was getting nauseated, blood pressure soft, so hemodialysis got short. Says that her bottom hurts. Denies other complaints. No chest pain or pressure. No shortness of breath. Vitals/I&O/Wt Last Vital Signs Temp 98.9 F 11/09/20 05:00 Pulse 53 L 11/09/20 06:00 Resp 22 H 11/09/20 05:00 BP 104/54 11/09/20 05:00 Pulse Ox 95 11/09/20 05:00 11/08/20 11/09/20 11/09/20 22:59 06:59 14:59 Intake Total 50 / 50 1050 / 1100 Output Total 0 / 0 300 / 300 Balance 50 / 50 750 / 800 Weight last 48 hrs Weight 95.345 kg Weight 90.718 kg Physical Exam Const: COMMON NORMALS: no acute distress and patient oriented x3 GENERAL APPEARANCE: frail appearing; not comfortable NUTRITIONAL APPEARANCE: obese morbidly obese HENMT: COMMON NORMALS: oropharynx normal Neck/C-Spine: COMMON NORMALS: no JVD Resp: COMMON NORMALS: normal respiratory effort AUSCULTATION: crackles and diminished lung sounds Cardio: COMMON NORMALS: no JVD, regular rhythm, S1 normal heart sound present, S2 normal heart sound present and No murmurs present (Cardio) RHYTHM: regular rhythm HEART SOUNDS: S1 normal heart sound present and S2 normal heart sound present GI: COMMON NORMALS: Normal to inspection, nondistended, normoactive bowel so unds present, Soft to palpation and non-tender PALPATION: Yes Soft to palpation OTHER: Large pannus Extremity: COMMON NORMALS: no joint enlargement GENERAL: Yes edema (3+ LE edema extending gradually up to mid thighs) Neuro: COMMON NORMALS: patient oriented x3 and moves all extremities Skin: COMMON NORMALS: no rashes or lesions noted GENERAL SKIN EXAM: no ra shes or lesions noted Data : 11/09/20 04:43 11/09/20 04:43 A&P Assessment and plan (1) Dyspnea: And impressive urine output with Lasix. Underwent hemodialysis this morning with removal of 800 mL, subsequently nauseated, blood pressure soft. No chest pain pressure. Shortness of breath. Additional hemodialysis as per nephrology. Continue Lasix. Follow-up TTE. So far has weaned down to room air. Oxygen support as needed. Tomorrow will reassess chest x-ray. So far no signs of sepsis. For now holding off an tibiotics due to no clear sign that she has pneumonia. This is suspected secondary due to CHF, fluid overload. She does have mild leukocytosis, reports some cough, although otherwise afebrile, no other respiratory complaints. No other signs of COVID-19. Completed her vaccinations. Discussed with her elevated troponin. With known CAD, currently CHF, renal failure likely contributed to demand ischemia, however, would benefit from additional risk stratification. Monitor for lower possibility of concomitant pneumonia, although this appears less likely currently. Will monitor for now. Will reassess chest x-ray. In case suspicion persists or other signs of pneumonia, will add antibiotic. Status: Acute (2) Acute exacerbation of CHF (congestive heart failure): Acute systolic congestive heart failure exacerbation. Anasarca. As above. We will go ahead and request echocardiogram given CHF, last echo in 2015 showing 40-50% EF. Noted troponin elevation, although no chest pain, suspect this is related to demand ischemia in the setting of progressive renal failure. Would benefit from additional risk stratification once volume status optimized. Complete troponin EKG series. TTE as above. Continue cardiac medications. TSH 11.55. Would benefit from ACEI/ARB, although currently blood pressure soft. Consider addition once things are more stable. Status: Acute (3) Chronic kidney disease, stage 5, kidney failure: S/p tunneled HD catheter 11/08. Initiated dialysis morning 11/09. Appreciate nephrology consultation. Additional studies requested by nephrology including renal ultrasound. Status: Acute (4) Acute hyperkalemia: Improved with treatment. Received Lasix, Kayexalate. Dialysis today. Status: Acute (5) Elevated troponin: Noted troponin elevation, although no chest pain, suspect this is related to demand ischemia in the setting of progressive renal failure. Complete troponin EKG series. TTE as above. Aspirin. Statin benefit unclear with ESRD on hemodialysis. Beta-lori held last night due to slow heart rates. Monitor. If heart rates allow with initiation of hemodialysis, resume beta-lori. Status: Acute (6) Hypothyroidism: TSH 11.55. Increase levothyroxine dose to 137. Follow-up thyroid function outpatient. Status: Acute Additional A&P Information Intertrigo: Yeast infection under pannus, continue nystatin. DM2: Continue insulin, add SSI CAD, status post CABG Chronic systolic CHF History of CVA Obesity: Reposition frequently. PT. At assisted living walks with a walker. Attestations Medical Necessity Statement*: Continue admission for assessment of management of CHF exacerbation, progressive renal failure requiring initiation of hemodialysis. Coding Level of Care Code Acute Tip Length Checker for Shilpa Bowden Diagnoses Dyspnea R06.00 Acute exacerbation of CHF (congestive heart failure) I50.9 Chronic kidney disease, stage 5, kidney failure N18.5 Acute hyperkalemia E87.5 Elevated troponin R77.8 Hypothyroidism E03.9
[2020-11-09] MEDS: aspirin 81 mg EC Tablet PO (10:06)
[2020-11-09] MEDS: sodium bicarbonate 650 mg Tablet PO ×2 (10:06→15:19)
[2020-11-09] MEDS: levothyroxine 137 mcg Tablet PO (10:16)
[2020-11-09] MEDS: nystatin powder 15 gm Btl 1 APPLIC TOPICAL ×2 (10:17→17:50)
[2020-11-09 11:16] LABS: Glucose Point of Care 54 mg/dL (70-110)
[2020-11-09 11:16] LABS: Glucose Point of Care 73 mg/dL (70-110)
--- NOTE | 2020-11-09 11:32 | P.PN_ITS ---
Subjective Subjective: Interval history: nausea during dialysis, feels weak Medications: Reviewed: Yes Vitals/I&O/Wt Last Vital Signs Temp 98.8 F 11/09/20 09:53 Pulse 54 L 11/09/20 09:53 Resp 20 H 11/09/20 09:53 BP 126/40 11/09/20 09:53 Pulse Ox 95 11/09/20 05:00 11/08/20 11/09/20 11/09/20 22:59 06:59 14:59 Intake Total 50 / 50 1050 / 1100 120 / 120 Output Total 0 / 0 300 / 300 Balance 50 / 50 750 / 800 120 / 120 Weight last 48 hrs Weight 95.345 kg Weight 90.718 kg Physical Exam Const: COMMON NORMALS: no acute distress GENERAL APPEARANCE: cooperative Extremity: GENERAL: Yes edema Data : 11/09/20 04:43 11/09/20 04:43 Other Labs: phos 8.5, albumin 3.2, calcium 7.3, TSH 11.55, SF 372, TSAT 20% HepBsAg neg A&P Additional A&P Information 1. ESRD, likely etiology diabetic nephropathy 2. Metabolic acidosis, improved 3. Hyperkalemia, improved 4. Volume overload 5. 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 Hyperphospatemia - begin calcium acetate, check PTH First Hd today. Will dialyze again tomorrow. Zofran prn nausea. Can discontinue sodium bicarbonate. Discharge planning. Attestations Medical Necessity Statement*: see above Coding Level of Care Code Acute Agricultural Education Instructor for Shilpa Bowden
--- NOTE | 2020-11-09 11:47 | PC.NURSE ---
1130. transferred to 106 per bed with dentures in and glasses at bedside.
[2020-11-09 13:59] LABS: Glucose Point of Care 77 mg/dL (70-110)
--- NOTE | 2020-11-09 16:32 | PC.NUTR ---
Nutrition assessment triggered due to stage 2 wound to sacrum. Also requested by nurse to speak to pt regarding initiation of dialysis as well as poor po intakes. Provided nutrition education on hemodialysis nutrition and also encouraged pt to follow up with dialysis center dietitian. Recommend Nepro TID to provide additional 420 kcal and 19 g protein per serving to promote wound healing. Recommend to assist pt with feeding at meals as needed and encourage po intakes of meals/supplement. See RD assessment for further details.
[2020-11-09 16:57] LABS: Glucose Point of Care 83 mg/dL (70-110)
[2020-11-09 17:22] LABS: Calcium 7.3 mg/dL (8.5-10.5)
[2020-11-09 17:29] LABS: Parathyroid Hormone 676.1 pg/mL (15-65)
[2020-11-09] MEDS: calcium acetate 667 mg Capsule 1334 MG PO (17:49)
--- NOTE | 2020-11-09 18:58 | PC.NURSE ---
pt is incontinent .unable to keep accurate output measurements
[2020-11-09 20:01] LABS: Glucose Point of Care 137 mg/dL (70-110)
--- NOTE | 2020-11-09 20:14 | PC.NURSE ---
Patient was turned to right side will pillow. Patient stated I don't like laying on my side. Get this pillow out from under me. Patient was educated that she needs to be turned on her side to prevent bed sores. Patient stated, I don't care, I don't like laying like this. Patient was repositioned onto her back. Patient was educated again that she is at higher risk for bed sores if she does not turn on her side. Patient states, I know.
--- NOTE | 2020-11-09 21:26 | PC.NURSE ---
Patient frequently hits her call light asking to be repositioned. Patient is still refusing to turn on her side.
--- NOTE | 2020-11-09 21:51 | PC.NURSE ---
Unable to measure urine output or obtain urine sample due to patient being incontinent.
[2020-11-10] VITALS (10 sets, daily range): BP systolic 109–151; BP diastolic 26–72; PULSE 56–68; RESP 16–28; TEMP 36.4–36.8; O2SAT 92–94
[2020-11-10] MEDS: FUROsemide 10 mg/mL SDV 4mL 40 MG IVP ×2 (00:04→15:21)
--- NOTE | 2020-11-10 04:09 | PC.NURSE ---
Optifoam to buttock changed due to being saturated in urine.
[2020-11-10 04:57] LABS: Basophils % 0.2 %; Eosinophils # 0.1 10^3/uL (0.0-0.8); Eosinophils % 0.9 %; Hematocrit 30.2 % (37.0-47.0); Hemoglobin 9.2 g/dL (11.5-15.3); Lymphocytes # 1.1 10^3/uL (0.8-4.8); Lymphocytes % 11.5 %; Mean Corpuscular HGB Conc 30.5 g/dL (30.0-36.0); Mean Corpuscular Hemoglobin 31.8 pg (28.0-34.0); Mean Corpuscular Volume 104.5 fL (81-99); Monocytes % 10.8 %; Neutrophils # 7.29 10^3/uL (1.8-7.7); Neutrophils % 76.2 %; Nucleated Red Blood Cells % 0 %; Platelet Count 122 10^3/cmm (130-400); Red Blood Count 2.89 10^6/uL (4.1-5.3); Red Cell Distribution Width 17.2 % (12.1-15.1); White Blood Count 9.6 10^3/uL (4.0-10.0)
[2020-11-10] MEDS: heparin 5,000 unit/mL INJ 1 mL 5000 UNIT SUBCUT ×2 (05:02→17:09)
[2020-11-10 05:19] LABS: Alanine Aminotransferase 13 U/L (0-33); Albumin Level 2.7 g/dL (3.5-5.2); Alkaline Phosphatase 76 IU/L (35-105); Anion Gap 18.9 (5-19); Aspartate Amino Transferase 21 U/L (0-32); Calcium 7.2 mg/dL (8.5-10.5); Carbon Dioxide 18 mmol/L (22-29); Chloride 107 mmol/L (98-107); Globulin 2.5 g/dL (1.3-4.6); Glucose 83 mg/dL (65-115); Osmolality Calculated 317 mOsm/kg (285-295); Potassium 3.9 mmol/L (3.5-5.1); Sodium 140 mmol/L (136-145); Total Bilirubin 0.3 mg/dL (0.15-1.2); Total Protein 5.2 g/dL (6.6-8.7)
[2020-11-10 05:31] LABS: Blood Urea Nitrogen 91 mg/dL (8-23)
--- NOTE | 2020-11-10 05:35 | PC.NURSE ---
Patient's linens and absorbent pads are currently clean/dry. Patient stated that she wanted to be turned just a little bit. Patient was turned to left side with two assist and pillow was placed.
[2020-11-10 06:26] LABS: Glucose Point of Care 85 mg/dL (70-110)
[2020-11-10] MEDS: nystatin powder 15 gm Btl 1 APPLIC TOPICAL ×2 (09:01→17:10)
[2020-11-10] MEDS: ondansetron 2 mg/ML SDV 2 mL 4 MG IVP (09:09)
--- NOTE | 2020-11-10 10:01 | P.PN_ITS ---
Subjective Subjective: Interval history: nausea, not eating, weakness Medications: Reviewed: Yes Vitals/I&O/Wt Last Vital Signs Temp 97.6 F 11/10/20 08:00 Pulse 58 L 11/10/20 09:41 Resp 16 11/10/20 09:41 BP 121/60 11/10/20 08:00 Pulse Ox 94 11/10/20 09:41 11/09/20 11/10/20 11/10/20 22:59 06:59 14:59 Intake Total 500 / 740 120 / 120 Balance 500 / 740 120 / 120 Weight last 48 hrs Weight 91.989 kg Weight 95.345 kg Weight 90.718 kg Physical Exam Const: COMMON NORMALS: no acute distress GENERAL APPEARANCE: ill appearing Extremity: GENERAL: Yes edema Data : 11/10/20 03:26 11/10/20 03:26 Other Labs: PTH 676 pg/ml Echo: Radiologist's impression: Normal LV size with diminished ejection fraction of 45 to 50%. Mild left ventricular hypertrophy with a grade 3 diastolic dysfunction. Diffuse hypokinesia of the septum. Possibly severe low gradient aortic valve stenosis with a valve area of 0.7 cm squared. Peak velocity of 2.53 m/s with a peak gradient of 26 and a mean gradient of 13 mmHg. Moderate aortic valve calcification. Moderate tricuspid valve regurgitation. Moderate mitral annular calcification. Moderate-severe mitral valve regurgitation. Estimated pulmonary artery peak systolic pressure of 27 mmHg There is no pericardial effusion. There are no intracardiac masses. Mid to the study from 11/20/2015, there is improvement in the LV ejection fraction, worsening of the aortic valve stenosis and diastolic dysfunction A&P Additional A&P Information 1. ESRD, likely etiology diabetic nephropathy 2. Metabolic acidosis, improved 3. Hyperkalemia, resolved 4. Volume overload, possible critical 5. 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 Epogen at dialysis 6. Hyperphospatemia, secondary hyperparathyroidism. Calcium acetate started, hold on active vitamin D until phos improved. Hd again today. Will stop IV furosemide. Next HD ThursdayDecember 12. Discharge planning. Attestations Medical Necessity Statement*: see above Time Spent in Patient Care: 16 - 35 minutes Coding Level of Care Code Acute Registered Vascular Technologist (Rvt) for Shilpa Bowden
[2020-11-10 11:40] LABS: Glucose Point of Care 83 mg/dL (70-110)
[2020-11-10] MEDS: heparin, porcine 1,000 unit/mL INJ 10 mL HE (11:45)
--- NOTE | 2020-11-10 11:48 | PC.NURSE ---
to dialysis at this time
--- NOTE | 2020-11-10 13:14 | PC.NURSE ---
pt has no appetite.encouraged to drink nepro,juice.states im just not hungry .refused morning medications.dr tia helm.
--- NOTE | 2020-11-10 15:19 | PC.NURSE ---
returned from dialysis via bed.pt denies nausea.appears to have tolerated well.
[2020-11-10 16:21] LABS: Glucose Point of Care 80 mg/dL (70-110)
[2020-11-10] MEDS: calcium acetate 667 mg Capsule 1334 MG PO (17:09)
--- NOTE | 2020-11-10 17:25 | P.PN_ITS ---
Subjective Subjective: Interval history: She has been feeling generally weak. Denies chest pain. Having persistent edema. Discussed with her consideration of that with the generalized weakness, concern regarding deconditioning she may benefit from rehabilitation at SNF after discharge. She states she would be agreeable. Vitals/I&O/Wt Last Vital Signs Temp 97.8 F 11/10/20 16:00 Pulse 64 11/10/20 16:00 Resp 20 H 11/10/20 16:00 BP 141/52 11/10/20 16:00 Pulse Ox 94 11/10/20 16:00 11/10/20 11/10/20 11/10/20 06:59 14:59 22:59 Intake Total 120 / 120 Balance 120 / 120 Weight last 48 hrs Weight 94.5 kg Weight 91.989 kg Weight 95.345 kg Physical Exam Const: COMMON NORMALS: no acute distress and patient oriented x3 GENERAL APPEARANCE: frail appearing NUTRITIONAL APPEARANCE: obese morbidly obese OTHER: Generally weak. HENMT: COMMON NORMALS: oropharynx normal Neck/C-Spine: COMMON NORMALS: no JVD Resp: COMMON NORMALS: normal respiratory effort AUSCULTATION: crackles and diminished lung sounds Cardio: COMMON NORMALS: no JVD, regular rhythm, S1 normal heart sound present, S2 normal heart sound present and No murmurs present (Cardio) RHYTHM: regular rhythm HEART SOUNDS: S1 normal heart sound present and S2 normal heart sound present GI: COMMON NORMALS: Normal to inspection, nondistended, normoactive bowel sounds present, Soft to palpation and non-tender PALPATION: Yes Soft to palpation OTHER: Large pannus Extremity: COMMON NORMALS: no joint enlargement GENERAL: Yes edema (2+ LE edema extending gradually up to mid thighs) Neuro: COMMON NORMALS: patient oriented x3 and moves all extremities Skin: COMMON NORMALS: no rashes or lesions noted GENERAL SKIN EXAM: no rashes or lesions noted Data : 11/10/20 03:26 11/10/20 03:26 A&P Assessment and plan (1) Dyspnea: This appears perhaps slightly better, but still generally weak, persistent significant lower extremity edema. Does not appear to be responding to diuretics. Appreciate nephrology recommendations regarding additional dialysis today and tomorrow. We are finding possibly severe aortic stenosis in addition to cardiomyopathy, EF 45-50%, as well as grade 3 diastolic dysfunction. We have consulted cardiology, appreciate recommendations with regards to additional assessment. Originally stress testing was planned, however, will appreciate recommendations with regards to modality, and/or whether consideration of heart cath may be appropriate given history of CAD and CABG, as well as additional evaluation of aortic stenosis. Discussed with her [id number] Susie Lira, try to reach Adia and Henrik Pankaj as per her request as well, but there was no answer. Continue Lasix. She is incontinent, urine output is not frequent, very difficult to measure. Place Wright catheter, due to generalized weakness we also need a urine sample. So far has weaned down to room air but very weak. Oxygen support as needed. Bibasilar opacification thought to be secondary to fluid overload, CHF, so far no signs of sepsis/pneumonia, but will request repeat chest x-ray. Illness not suggestive of COVID-19. Completed her vaccinations. Elevated troponin in setting of CAD will need additional investigation. The degree of elevation likely exaggerated in the setting of renal failure. Discussed with [id number] Adia her overall frailty, generalized weakness, [id number] states she has not had a good appetite, not eating well. Discussed concern regarding overall prognosis given quite significant generalized weakness and multiple serious underlying conditions including advanced renal failure, congestive heart failure, possibly severe aortic stenosis with underlying CAD, advanced age and other comorbidities. Discussed she is at high risk of additional complications, failure to thrive and mortality. Encouraged patient to participate with physical therapy as she is at very severe risk of deconditioning. Discussed with her consideration also of rehabilitation at SNF after discharge and she would be agreeable. Appreciate discharge pl anning assistance with arrangements. Status: Acute (2) Acute exacerbation of CHF (congestive heart failure): Acute systolic congestive heart failure exacerbation. Anasarca. As above. EF appears possibly unchanged, 40-50% as per echo in 2016. Currently noted grade 3 diastolic dysfunction. Appears to have new possibly severe aortic stenosis. BP improved. Add very cautiously losartan 12.5mg. Last echo in 2016 showing 40-50% EF. Noted troponin elevation, although no chest pain, suspect this is related to demand ischemia in the setting of progressive renal failure. Would benefit from additional risk stratification once volume status optimized. Continue cardiac medications. TSH 11.55. Status: Acute (3) Chronic kidney disease, stage 5, kidney failure: S/p tunneled HD catheter 11/08. Initiated dialysis morning 11/09. Appreciate nephrology consultation. Status: Acute (4) Acute hyperkalemia: Improved with treatment. Status: Acute (5) Elevated troponin: As above. Aspirin. Statin benefit unclear with ESRD on hemodialysis. Beta-lori held due to slow heart rates. Monitor. Appreciate cardiology evaluation. Status: Acute (6) Hypothyroidism: TSH 11.55. Increase levothyroxine dose to 137. Follow-up thyroid function outpatient. Status: Acute Additional A&P Information Intertrigo: Yeast infection under pannus, continue nystatin. DM2: Continue insulin, add SSI CAD, status post CABG Chronic systolic CHF History of CVA Obesity: Reposition frequently. PT. At assisted living walks with a walker. Discussed with [id number] Christina Lira. Attestations Medical Necessity Statement*: Continue admission for assessment of management of CHF exacerbation, ESRD with initiation of dialysis, and additional assessment of possibly severe aortic stenosis, troponin elevation. Coding Level of Care Code Acute Cooler Service Supervisor for Chg Fwd Exam Comprehensive Diagnoses Dyspnea R06.00 Acute exacerbation of CHF (congestive heart failure) I50.9 Chronic kidney disease, stage 5, kidney failure N18.5 Acute hyperkalemia E87.5 Elevated troponin R77.8 Hypothyroidism E03.9
[2020-11-10 21:01] LABS: Glucose Point of Care 174 mg/dL (70-110)
[2020-11-11] VITALS (12 sets, daily range): BP systolic 116–131; BP diastolic 45–60; PULSE 60–69; RESP 18–27; TEMP 36.4–36.8; O2SAT 90–98
[2020-11-11] MEDS: FUROsemide 10 mg/mL SDV 4mL 40 MG IVP ×2 (00:21→15:00)
[2020-11-11] MEDS: ondansetron 2 mg/ML SDV 2 mL 4 MG IVP (03:00)
[2020-11-11 03:18] LABS: Basophils % 0.2 %; Eosinophils # 0.1 10^3/uL (0.0-0.8); Eosinophils % 1.1 %; Hematocrit 28.4 % (37.0-47.0); Lymphocytes # 1.3 10^3/uL (0.8-4.8); Lymphocytes % 12.2 %; Mean Corpuscular HGB Conc 31.7 g/dL (30.0-36.0); Mean Corpuscular Hemoglobin 31.3 pg (28.0-34.0); Mean Corpuscular Volume 98.6 fL (81-99); Mean Platelet Volume 11.9 fL (7.4-10.4); Monocytes # 1.3 10^3/uL (0.2-0.9); Monocytes % 11.7 %; Neutrophils % 74.2 %; Nucleated Red Blood Cells % 0.2 %; Platelet Count 139 10^3/cmm (130-400); Red Blood Count 2.88 10^6/uL (4.1-5.3); Red Cell Distribution Width 16.6 % (12.1-15.1); White Blood Count 10.8 10^3/uL (4.0-10.0)
[2020-11-11 03:40] LABS: Alanine Aminotransferase 12 U/L (0-33); Albumin Level 2.7 g/dL (3.5-5.2); Alkaline Phosphatase 78 IU/L (35-105); Anion Gap 17.5 (5-19); Aspartate Amino Transferase 21 U/L (0-32); Blood Urea Nitrogen 48 mg/dL (8-23); Calcium 7.3 mg/dL (8.5-10.5); Carbon Dioxide 24 mmol/L (22-29); Chloride 100 mmol/L (98-107); Globulin 2.6 g/dL (1.3-4.6); Glucose 130 mg/dL (65-115); Osmolality Calculated 300 mOsm/kg (285-295); Potassium 3.5 mmol/L (3.5-5.1); Sodium 138 mmol/L (136-145); Total Bilirubin 0.4 mg/dL (0.15-1.2); Total Protein 5.3 g/dL (6.6-8.7)
[2020-11-11 03:58] LABS: Urine Color Yellow (Yellow)
[2020-11-11 04:22] LABS: Add Urine Microscopic? YES; Bilirubin Urine Neg (Negative); Blood Urine Trace (Negative); Glucose Urine UA Norm (Normal); Ketones Urine Negative (Negative); Leukocyte Esterase Urine 2+ (Negative); Nitrate Urine Negative (Negative); Protein Urine Trace (Negative); Urobilinogen Urine Norm (Negative); pH Urine 5 (5-7)
[2020-11-11 04:25] LABS: Add Urine Culture? No; Bacteria Urine 4+ /hpf; RBC Urine 0-4 /hpf (0-2); Squamous Epithelial Cell Urine >100 /hpf (0-5); WBC Urine TOO NUMEROUS TO CNT /hpf (0-5)
[2020-11-11 05:04] LABS: Slide Review Slide Review Perform
[2020-11-11] MEDS: heparin 5,000 unit/mL INJ 1 mL 5000 UNIT SUBCUT ×2 (05:41→18:01)
--- NOTE | 2020-11-11 06:00 | XRR_ITS ---
PROCEDURE INFORMATION: Exam: XR Chest Exam date and time: 11/11/2020 6:00 AM Age: 85 years old Clinical indication: Shortness of breath; Additional info: Hypoxia TECHNIQUE: Imaging protocol: XR of the chest. Views: 1 view. COMPARISON: CR XR chest 1V portable [id number] 11/08/2020 1:17 PM FINDINGS: Lungs/pleural spaces: Pulmonary vascular congestion with interstitial edema and moderate left and small to moderate right pleural effusions, similar to slightly increased in comparison to prior. Pleural effusions limit evaluation of the lung bases. No focal consolidation within the upper lungs. No visible pneumothorax. Heart/Mediastinum: Cardiac silhouette remains mildly enlarged. Evidence of CABG. Vasculature: Interval placement of right IJ Vas-Cath with tips near the cavoatrial junction. Bones/joints: Median sternotomy wires. XR/XR chest 1V portable [id number] IMPRESSION: 1. Findings of fluid overload with pulmonary edema and bilateral pleural effusions, similar to slightly increased since prior. Superimposed basilar pneumonia not excluded. 2. Interval placement of right IJ catheter.
[2020-11-11 06:47] LABS: Glucose Point of Care 120 mg/dL (70-110)
--- NOTE | 2020-11-11 07:12 | P.PN_ITS ---
Subjective Subjective: Interval history: weak, swollen, less sob. poor appetite. Medications: Reviewed: Yes Medication Review Details: Current Medications Acetaminophen (Acetaminophen 325 Mg Tablet) 650 mg PO Q6H PRN PRN Reason: Mild/Mod Pain Or Temp >/= 101 Albuterol Sulfate (Albuterol 8 Gm Mdi) 2 puff INHALATION Q4H PRN PRN Reason: Shortness Of Breath Aspirin (Aspirin 81 Mg Ec Tablet) 81 mg PO DAILY [facility] Last Admin: 11/10/20 12:23 Dose: Not Given Documented by: Calcium Acetate (Calcium Acetate 667 Mg Capsule) 1,334 mg PO TIDWM [facility] Last Admin: 11/10/20 17:09 Dose: 1,334 mg Documented by: Dextrose (Dextrose 50% Syringe 50 Ml) 25 ml IVP ONCE PRN; Protocol PRN Reason: hypoglycemia protocol Dextrose (Dextrose 50% Syringe 50 Ml) 50 ml IVP PRN PRN; Protocol PRN Reason: hypoglycemia protocol Fluticasone Propionate (Fluticasone Nasal [place] 16gm Btl) 1 spray INTRANASAL BID PRN PRN Reason: Allergy Symptoms Furosemide (Furosemide 10 Mg/Ml Sdv 4ml) 40 mg IVP Q12H ALICIA Last Admin: 11/11/20 00:21 Dose: 40 mg Documented by: Glucagon (Glucagon 1 Mg/Ml Inj 1 Ml) 1 mg IM ONCE PRN; Protocol PRN Reason: Adult Acute Hypoglycemia Prot. Heparin Sodium (Beef Lung) (Heparin 5,000 Unit/Ml Inj 1 Ml) 5,000 unit SUBCUT Q12H [facility] Last Admin: 11/11/20 05:41 Dose: 5,000 unit Documented by: Dextrose (D5w) 500 mls @ 100 mls/hr IV ONCE PRN; Protocol PRN Reason: Adult Acute Hypoglycemia Prot Sodium Chloride (Sodium Chloride 0.9%) 1,000 mls @ 0 mls/hr IV .Q0M PRN PRN Reason: hypotension or symptomatic Insulin Aspart (Insulin Aspart 100 Unit/1 Ml) 0 unit SUBCUT WM&BEDTIME ALICIA; Protocol Last Admin: 11/10/20 20:49 Dose: Not Given Documented by: Insulin Glargine (Insulin Glargine 100 Units/1 Ml) 20 unit SUBCUT BEDTIME [facility] Last Admin: 11/10/20 20:50 Dose: Not Given Documented by: Levothyroxine Sodium (Levothyroxine 137 Mcg Tablet) 137 mcg PO DAILY [facility] Last Admin: 11/10/20 12:26 Dose: Not Given Documented by: Losartan Potassium (Losartan 50 Mg Tablet) 12.5 mg PO DAILY [facility] Multivitamins (K-Swmyqwg-Gyjbodp C Tablet) 1 each PO DAILY [facility] Last Admin: 11/10/20 12:26 Dose: Not Given Documented by: Non-Formulary Medication (Lactobacillus Rhamnosus Gg [Culturelle]) 1 cap PO DAILY PRN PRN Reason: unknown Non-Formulary Medication (Thyroid Complex) 1 tab PO DAILY [facility] Last Admin: 11/10/20 09:02 Dose: Not Given Documented by: Nystatin (Nystatin Powder 15 Gm Btl) 1 applic TOPICAL BID [facility] Last Admin: 11/10/20 17:10 Dose: 1 applic Documented by: Ondansetron HCl (Ondansetron 2 Mg/Ml Sdv 2 Ml) 4 mg IVP Q8H PRN PRN Reason: vomiting, or N/V if npo Last Admin: 11/11/20 03:00 Dose: 4 mg Documented by: Vitals/I&O/Wt Last Vital Signs Temp 98.3 F 11/11/20 03:13 Pulse 64 11/11/20 06:00 Resp 27 H 11/11/20 03:13 BP 116/45 11/11/20 03:13 Pulse Ox 90 11/11/20 03:13 11/10/20 11/11/20 11/11/20 22:59 06:59 14:59 Intake Total 130 / 250 Output Total 200 / 200 Balance 130 / 250 -200 / 50 Weight last 48 hrs Weight 93.531 kg Weight 94.5 kg Weight 91.989 kg Physical Exam Narrative: EXAM NARRATIVE: elderly, frail, using nc02- vs noted heent- nc/at, eomi, anicteric neck- supple ACW tunnelled catheter lungs- dull, crackles b/l heart- reg, +MARK abd- soft, nt, nd, +BS ext b/l edema neuro-a,a, o x2+, weak Urinary Catheter Management^: Wright: Cath Placed During This Visit: yes Reason for Continuing Indwelling Catheter: Accurate Measurement of Urinary Output in Critically Ill Patients Urinary Catheter Date of Insertion: 11/10/20 Urinary Catheter Time of Insertion: 19:30 Data : 11/11/20 02:47 11/11/20 02:47 A&P Additional A&P Information 85 yr old female: 1. ESRD- new start HD- s/p HD fri and sat- plan repeat in am -etiology is age, DM, CRS -met acidosis improved w/ HD 2. CHF- await cardiology input echo- CONCLUSIONS Normal LV size with diminished ejection fraction of 45 to 50%. Mild left ventricular hypertrophy with a grade 3 diastolic dysfunction. Diffuse hypokinesia of the septum. Possibly severe low gradient aortic valve stenosis with a valve area of 0.7 cm squared. Peak velocity of 2.53 m/s with a peak gradient of 26 and a mean gradient of 13 mmHg. Moderate aortic valve calcification. Moderate tricuspid valve regurgitation. Moderate mitral annular calcification. Moderate-severe mitral valve regurgitation. Estimated pulmonary artery peak systolic pressure of 27 mmHg There is no pericardial effusion. There are no intracardiac masses. Mid to the study from 11/20/2015, there is improvement in the LV ejection fraction, worsening of the aortic valve stenosis and diastolic dysfunction 3. hypothyroidism- tsh 11.55- per medicine 4. 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 Epogen at dialysis. ferritin 372, % sat 20 - iv iron 5. Hyperphospatemia, secondary hyperparathyroidism. Calcium acetate started, hold on active vitamin D until phos improved. 6. needs nutrition 7. Q uti vs dirty urine >100 sq epi cells- consider repeat ua and cx Attestations Medical Necessity Statement*: chf, dm, esrd Time Spent in Patient Care: 16 - 35 minutes Coding Level of Care Code Acute Pediatric Assistant for Shilpa Bowden
[2020-11-11] MEDS: calcium acetate 667 mg Capsule 1334 MG PO ×2 (07:27→17:55)
--- NOTE | 2020-11-11 08:13 | PM.CONSULT ---
Providers/Reason For Consult Consulting Physician/Specialty*: CYRIL Grimes MD/cardiology Reason for Consult*: Patient with a possibly severe aortic valve stenosis/heart failure/chronic kidney disease now on hemodialysis Attending Physician: Joey Patel Primary Care Provider: Kash Munoz DO History of Present Illness History of Present Illness Cindy Mena is a 85 year old female, is admitted to hospital with progressive shortness of breath. She was found to be in congestive heart failure and in acute on chronic renal failure. She is known to have atherosclerotic heart disease, status post three-vessel coronary artery bypass surgery, type 2 diabetes, essential benign hypertension, dyslipidemia, history of CVA and chronic kidney disease. Patient was started on hemodialysis in the hospital. His symptoms are improving. She had an echocardiogram done in the hospital and was found to have features of possible severe low gradient aortic valve stenosis. Cardiology consult is requested mainly to further evaluate her cardiac status, specifically the aortic valve stenosis. The patient is a very poor historian. She is not able to give any detailed history. Most of the information is from the medical records and also from the family. This patient underwent a three-vessel coronary bypass surgery in November 2015 here at the [facility]. She had a SIGALA to the LAD and a venous graft to the obtuse marginal artery and another venous graft to the PDA. The cardiac catheterization prior to this, on 11/19/2015 revealed the following #1 Left main has distal 80% stenosis #2 LAD has mid 75% stenosis #3 Diagonal 1 is a moderate size and caliber vessel with proximal 30% stenosis #4 Proximal circumflex has 70% stenosis #5 RCA has distal 80% stenosis it gives long PDA it is a dominant vessel #7 HIgh LVEDP 43 mmHg, LV gram was not performed due to high LVEDP and kidney failure #8 Pullback demonstrated no gradient across the valve According to the patient and family, she has been doing okay with no significant symptoms up until 2 weeks ago when she started having increasing shortness of breath. She was finding it difficult to lie down. She also was noticing some swelling of the lower extremities. She was started on diuretics as an outpatient. She was refusing to undergo hemodialysis in the past. Because of the worsening of the symptoms, she was brought to the hospital. She currently has a subclavian dialysis catheter and had hemodialysis. She denies any chest pain or chest tightness. No fever, chills or cough. No other specific complaints. Review of Systems Narrative: CONSTITUTIONAL: No fever or chills. [] EYES: No blurring of vision or other visual disturbances lately. [] ENT: No hoarseness of voice, auditory disturbances or sore throat. [] CARDIOVASCULAR: As mentioned above. [] RESPIRATORY: No significant cough. Shortness of breath as mentioned above GASTROINTESTINAL: No hematemesis or melena. GENITOURINARY: Chronic kidney disease disease as mentioned above INTEGUMENTARY: No skin rashes or history of skin cancer. NEURO: History of CVA PSYCHIATRIC: No history of psychosis or major depression. HEMATOLOGIC: Chronic anemia ENDOCRINE: N type 2 diabetes MUSCULOSKELETAL: History of osteoarthritis/degenerative joint disease ALLERGY/IMMUNOLOGY: As mentioned above. Meds/Allergies Home Medications and Allergies Home Medications Medication Instructions Recorded Confirmed Last Taken Type Lactobacillus rhamnosus GG 1 cap PO DAILY PRN 11/08/20 11/08/20 Unknown History [Culturelle] Thyroid Complex 1 tab PO DAILY 11/08/20 11/08/20 Unknown History acetaminophen [Tylenol Extra 1,000 mg PO Q6H PRN 11/08/20 11/08/20 Unknown History Strength] albuterol sulfate 2 puff INHALATION Q4H PRN 11/08/20 11/08/20 Unknown History carvedilol See Rx Instructions .ROUTE .COMPLEX 11/08/20 11/08/20 Unknown History ergocalciferol (vitamin D2) 50,000 unit PO Q7D 11/08/20 11/08/20 Unknown History fluticasone propionate [Flonase] 1 spray INTRANASAL BID PRN 11/08/20 11/08/20 Unknown History furosemide 20 mg PO QAM 11/08/20 11/08/20 11/08/20 History insulin glargine [Lantus Solostar 20 unit SUBCUT BEDTIME 11/08/20 11/08/20 11/07/20 History U-100 Insulin] levothyroxine 125 mcg PO DAILY 11/08/20 11/08/20 11/07/20 History nystatin [Nystop] See Rx Instructions .ROUTE .COMPLEX 11/08/20 11/08/20 Unknown History sodium bicarbonate 325 mg PO BID 11/08/20 11/08/20 11/07/20 History Allergies Allergy/AdvReac Type Severity Reaction Status Date / Time ibuprofen [From Advil] Allergy Unknown Verified 11/08/20 13:52 Penicillins Allergy Unknown Verified 11/08/20 13:52 Current Medications Current Medications Generic Name Dose Route Start Last Admin Trade Name Freq PRN Reason Stop Dose Admin Aspirin 81 mg 11/09/20 09:00 11/10/20 12:23 Aspirin 81 Mg Ec Tablet PO Not Given DAILY ALICIA Calcium Acetate 1,334 mg 11/09/20 12:00 11/11/20 07:27 Calcium Acetate 667 Mg Capsule PO 1,334 mg TIDWM ALICIA Administration Furosemide 40 mg 11/09/20 01:00 11/11/20 00:21 Furosemide 10 Mg/Ml Sdv 4ml IVP 40 mg Q12H ALICIA Administration Heparin Sodium (Beef Lung) 5,000 unit 11/08/20 18:05 11/11/20 05:41 Heparin 5,000 Unit/Ml Inj 1 Ml SUBCUT 5,000 unit Q12H ALICIA Administration Insulin Aspart 0 unit 11/08/20 18:05 11/11/20 07:16 Insulin Aspart 100 Unit/1 Ml SUBCUT Not Given WM&BEDTIME [facility] Protocol Insulin Glargine 20 unit 11/08/20 21:00 11/10/20 20:50 Insulin Glargine 100 Units/1 Ml SUBCUT Not Given BEDTIME [facility] Levothyroxine Sodium 137 mcg 11/09/20 09:00 11/10/20 12:26 Levothyroxine 137 Mcg Tablet PO Not Given DAILY ALICIA Multivitamins 1 each 11/10/20 09:00 11/10/20 12:26 Z-Kmpnpcs-Brcugxd C Tablet PO Not Given DAILY ALICIA Non-Formulary Medication 1 tab 11/09/20 09:00 11/10/20 09:02 Thyroid Complex PO Not Given DAILY ALICIA Nystatin 1 applic 11/08/20 19:00 11/10/20 17:10 Nystatin Powder 15 Gm Btl TOPICAL 1 applic BID ALICIA Administration Ondansetron HCl 4 mg 11/08/20 18:05 11/11/20 03:00 Ondansetron 2 Mg/Ml Sdv 2 Ml IVP 4 mg Q8H PRN Administration vomiting, or N/V if npo PFSH Acute PFSH: Medical History CAD (coronary artery disease) CHF (congestive heart failure) Chronic kidney disease, stage 5, kidney failure CVA (cerebral vascular accident) DM type 2 (diabetes mellitus, type 2) Hypothyroidism Surgical History H/O hernia repair H/O: hysterectomy Hx of CABG Hx of tonsillectomy Family History Brother Myocardial infarction Chronic kidney disease (CKD) Social History Smoking and tobacco status: never smoked Alcohol intake: never Substance/Drug Use: never Lives independently: No Housing: Assisted Living Facility Marital status: / Vitals/I&O/Wt Last Vital Signs Temp 98.3 F 11/11/20 03:13 Pulse 64 11/11/20 06:00 Resp 27 H 11/11/20 03:13 BP 116/45 11/11/20 03:13 Pulse Ox 90 11/11/20 03:13 11/10/20 11/11/20 11/11/20 22:59 06:59 14:59 Intake Total 130 / 250 Output Total 200 / 200 Balance 130 / 250 -200 / 50 Weight last 48 hrs Weight 206 lb 3.2 oz Weight 208 lb 5.389 oz Weight 202 lb 12.8 oz Physical Exam Narrative: EXAM NARRATIVE: GENERAL: The patient is drowsy but answers questions appropriately. HEENT: Moderate pallor. No icterus or lymphadenopathy. The pupils are symmetrical oral cavity: There are no mucous membrane lesions. Funduscopic examination: The fundus is not visualized NECK: Trachea appears to be central. No masses noted. No JVD or thyromegaly appreciated. No carotid bruit. RESPIRATORY: Chest is symmetrical. No intercostals muscle retraction or any accessory muscle activation. There is no chest wall tenderness. Breath sounds are heard bilaterally. No rales or rhonchi heard. The intensity of the breath sounds are diminished in the bases. BREASTS: Deferred. HEART: The PMI could not be palpated. No palpable precordial events. S1 and S2 are normal. No S3 or S4 heard. No pericardial rub or any click heard. Ejection systolic murmur grade 3/6 in the aortic area. No diastolic murmurs. ABDOMEN: No vessel pulsations or distention. No tenderness. No organomegaly appreciated. No abdominal bruit. Bowel sounds are normally heard. : Deferred. RECTAL: Deferred. LYMPHATIC: No lymphadenopathy noted in the neck or groin. EXTREMITIES: 1-2+ edema both lower extremities. No cyanosis. Peripheral pulses are weak bilaterally. MUSCULOSKELETAL: No acute joint deformities or swelling. SKIN: There are no significant scars or skin rash noted. NEUROPSYCHIATRIC: The patient is drowsy but answers questions appropriately. No focal motor deficits. Urinary Catheter Management^: Wright: Cath Placed During This Visit: yes Reason for Continuing Indwelling Catheter: Accurate Measurement of Urinary Output in Critically Ill Patients Urinary Catheter Date of Insertion: 11/10/20 Urinary Catheter Time of Insertion: 19:30 Data Labs: Other Labs: Laboratory Last Values WBC 10.8 10^3/uL (4.0 -10.0) H 11/11/20 02:47 RBC 2.88 10^6/uL (4.1 -5.3) L 11/11/20 02:47 Hgb 9.0 g/dL (11.5-15 .3) L 11/11/20 02:47 Hct 28.4 % (37.0-47.0 ) L 11/11/20 02:47 MCV 98.6 fL (81-99) D 11/11/20 02:47 MCH 31.3 pg (28.0-34. 0) 11/11/20 02:47 MCHC 31.7 g/dL (30.0-3 6.0) 11/11/20 02:47 RDW 16.6 % (12.1-15.1 ) H 11/11/20 02:47 Plt Count 139 10^3/cmm (130 -400) 11/11/20 02:47 MPV 11.9 fL (7.4-10.4 ) H 11/11/20 02:47 Neut % (Auto) 74.2 % 11/11/20 02:47 Lymph % (Auto) 12.2 % 11/11/20 02:47 [place] % (Auto) 11.7 % 11/11/20 02:47 Eos % (Auto) 1.1 % 11/11/20 02:47 Baso % (Auto) 0.2 % 11/11/20 02:47 Neut # (Auto) 8.00 10^3/uL (1.8 -7.7) H 11/11/20 02:47 Lymph # (Auto) 1.3 10^3/uL (0.8- 4.8) 11/11/20 02:47 [place] # (Auto) 1.3 10^3/uL (0.2- 0.9) H 11/11/20 02:47 Eos # (Auto) 0.1 10^3/uL (0.0- 0.8) 11/11/20 02:47 Baso # (Auto) 0.0 10^3/uL (0.0- 0.1) 11/11/20 02:47 Nucleated RBC % (a uto) 0.2 % 11/11/20 02:47 Nucleated RBCs # 0.0 /100WBC 11/11/20 02:47 PT 15.70 SECONDS (12 .1-14.9) H 11/08/20 13:15 INR 1.21 (0.8-1.2) H 11/08/20 13:15 Sodium 138 mmol/L (136-1 45) 11/11/20 02:47 Potassium 3.5 mmol/L (3.5-5 .1) 11/11/20 02:47 Chloride 100 mmol/L (98-10 7) 11/11/20 02:47 Carbon Dioxide 24 mmol/L (22-29) 11/11/20 02:47 Anion Gap 17.5 (5-19) 11/11/20 02:47 BUN 48 mg/dL (8-23) H 11/11/20 02:47 Creatinine 3.1 mg/dL (0.5-0. 9) H 11/11/20 02:47 GFR Calculation Not Reportable 11/11/20 02:47 Glucose 130 mg/dL (65-115 ) H 11/11/20 02:47 POC Glucose 120 mg/dL (70-110 ) H 11/11/20 06:42 Calculated Osmolal ity 300 mOsm/kg (285- 295) H 11/11/20 02:47 Lactate 0.8 mmol/L (0.5-2 .2) 11/08/20 13:15 Calcium 7.3 mg/dL (8.5-10 .5) L 11/11/20 02:47 Phosphorus 8.5 mg/dL (2.5-4. 5) H* 11/09/20 04:43 Iron 43 ug/dL (37-145) 11/09/20 04:43 TIBC 218 mcg/dl 11/08/20 18:57 % Saturation 20.1 % (20-50) 11/08/20 18:57 Unsat Iron Binding 174 ug/dL (112-34 7) 11/08/20 18:57 Ferritin 372 ng/mL (15-150 ) H 11/09/20 04:43 Total Bilirubin 0.4 mg/dL (0.15-1 .2) 11/11/20 02:47 AST 21 U/L (0-32) 11/11/20 02:47 ALT 12 U/L (0-33) 11/11/20 02:47 Alkaline Phosphata se 78 IU/L (35-105) 11/11/20 02:47 Troponin T Baselin e 437 ng/L (0-10) H* 11/08/20 13:15 Troponin T 120 Min [place] 403.5 ng/L (0-10) H 11/08/20 15:10 Delta Troponin T -33.5 ABS# (0-10) L 11/08/20 15:10 Troponin T Hi Sens 6Hr 399.4 ng/L (0-10) H 11/08/20 18:57 Troponin T Hi Sens 6Hr Delta -37.6 ng/L (0-12) L 11/08/20 18:57 NT-Pro-B Natriuret Pep > 7000 pg/mL (0-4 50) H 11/08/20 13:15 Total Protein 5.3 g/dL (6.6-8.7 ) L 11/11/20 02:47 Albumin 2.7 g/dL (3.5-5.2 ) L 11/11/20 02:47 Globulin 2.6 g/dL (1.3-4.6 ) 11/11/20 02:47 TSH 11.55 uIU/mL (0.2 7-4.20) H 11/09/20 04:43 PTH Intact 676.1 pg/mL (15-6 5) H 11/09/20 04:43 Calcium (PTH Intac t) 7.3 mg/dL (8.5-10 .5) L 11/09/20 04:43 Urine Color Yellow (Yellow) 11/11/20 02:30 Urine Appearance Sl cloudy (CLEAR ) A 11/11/20 02:30 Urine pH 5 (5-7) 11/11/20 02:30 Ur Specific Gravit y 1.010 (1.005-1.0 30) 11/11/20 02:30 Urine Protein Trace (Negative) 11/11/20 02:30 Urine Glucose (UA) Norm (Normal) 11/11/20 02:30 Urine Ketones Negative (Negati ve) 11/11/20 02:30 Urine Blood Trace (Negative) H 11/11/20 02:30 Urine Nitrate Negative (Negati ve) 11/11/20 02:30 Urine Bilirubin Neg (Negative) 11/11/20 02:30 Urine Urobilinogen Norm mg/dL (Negat stiven) 11/11/20 02:30 Ur Leukocyte Nancy ase 2+ (Negative) H 11/11/20 02:30 Urine RBC 0-4 /hpf (0-2) H 11/11/20 02:30 Urine WBC Too numerous to c nt /hpf (0-5) H 11/11/20 02:30 Ur Squamous Epith Cells >100 /hpf (0-5) H 11/11/20 02:30 Amorphous Sediment Not Reportable 11/11/20 02:30 Urine Bacteria 4+ /hpf (NONE) H 11/11/20 02:30 Hep Bs Antigen Non-reactive (No nreactive) 11/09/20 04:43 Hep Bs Antibody 3.5 (11.5-1000) L 11/09/20 04:43 Hepatitis C Antibo dy Non-reactive (No nreactive) 11/09/20 04:43 Imaging^: Echo: My impression: Echocardiogram done on 11/09/2020 revealed Normal LV size with diminished ejection fraction of 45 to 50%. Mild left ventricular hypertrophy with a grade 3 diastolic dysfunction. Diffuse hypokinesia of the septum. Possibly severe low gradient aortic valve stenosis with a valve area of 0.7 cm squared. Peak velocity of 2.53 m/s with a peak gradient of 26 and a mean gradient of 13 mmHg. Moderate aortic valve calcification. Moderate tricuspid valve regurgitation. Moderate mitral annular calcification. Moderate-severe mitral valve regurgitation. Estimated pulmonary artery peak systolic pressure of 27 mmHg There is no pericardial effusion. There are no intracardiac masses. Mid to the study from 11/20/2015, there is improvement in the LV ejection fraction, worsening of the aortic valve stenosis and diastolic dysfunction EKG^: EKG 1: My Interpretation: The EKG revealed a possible ectopic atrial rhythm with a heart rate of 56 bpm. Right bundle branch block. Left anterior fascicular block. Some nonspecific T wave changes. A&P Assessment and plan (1) Aortic valve stenosis, nonrheumatic: Patient seems to have possibly severe low gradient aortic valve stenosis. Apparently she she had no significant gradient across the aortic valve in 2016. At this point I am not convinced that she has severe aortic valve stenosis. But because of the chronic kidney disease, she could have an accelerated degenerative process on the aortic valve causing the stenosis. This needs to be further evaluated. Hemodynamically she seems to be stable. Status: Acute (2) Acute exacerbation of CHF (congestive heart failure): Most likely this is from the worsening kidney function. Possibility of underlying coronary ischemia causing this cannot be excluded. Her troponin T was elevated at the baseline but the delta at 2 hours and 6 hours were negative. In view of her history of coronary heart disease and coronary bypass surgery, possibility of underlying coronary ischemia causing this cannot be excluded. This needs to be further evaluated. Status: Acute Qualifiers: Heart failure type: combined systolic and diastolic Qualified Code(s): I50.43 - Acute on chronic combined systolic (congestive) and diastolic (congestive) heart failure (3) Chronic kidney disease, stage 5, kidney failure: Patient is currently on hemodialysis. The BUN/creatinine seems to be coming down. She was hyperkalemic. Currently the potassium is within normal limits. Status: Acute (4) Atherosclerosis of coronary artery of [place] heart without angina pectoris: Patient had three-vessel coronary bypass surgery in 2016. She has not had any functional evaluation since then. She may require a repeat cardiac catheterization to evaluate the coronary arteries as well as the grafts, to decide on further management. Status: Acute Qualifiers: Coronary Disease-Associated Artery/Lesion type: [place] artery Qualified Code(s): I25.10 - Atherosclerotic heart disease of [place] coronary artery without angina pectoris Additional A&P Information Her other problems are Type 2 diabetes Chronic anemia Essential benign hypertension Dyslipidemia History of CVA Hyper hypothyroid state Hyperparathyroid? I discussed with the patient and her family about the need for further cardiac work-up. Before we proceed with any further work-up, the heart failure needs to be appropriately treated. The patient and the family are not sure about further invasive/interventional procedures for the heart. They are going to discuss this with the rest of the family and will let us know. In the meanwhile, she may be continue on the current medical management. Thank you for the opportunity to evaluate this patient make these recommendations Consult Attestations Medical Necessity Statement: Patient requires continued hospital stay for close monitoring and further management Coding Level of Care Code Acute Lumber Inspector for Chg Fwd History Detailed Exam Detailed Medical Decision Making High Complexity Diagnoses Aortic valve stenosis, nonrheumatic I35.0 Acute exacerbation of CHF (congestive heart failure) I50.43 Heart failure type: combined systolic and diastolic Chronic kidney disease, stage 5, kidney failure N18.5 Atherosclerosis of coronary artery of [place] heart without angina pectoris I25.10 Coronary Disease-Associated Artery/Lesion type: [place] artery Time Spent (min) 65
--- NOTE | 2020-11-11 08:22 | DCPLANNER ---
Pg 2 of IM updated and reviewed with pt and S.I.L. @ bedside, mostly the latter as pt is sleepy. No questions, copy provided.
[2020-11-11] MEDS: losartan 50 mg Tablet 12.5 MG PO (08:47)
[2020-11-11] MEDS: b-complex-vitamin c Tablet 1 EACH PO (08:48)
[2020-11-11] MEDS: levothyroxine 137 mcg Tablet PO (08:48)
[2020-11-11] MEDS: aspirin 81 mg EC Tablet PO (08:48)
[2020-11-11] MEDS: nystatin powder 15 gm Btl 1 APPLIC TOPICAL ×2 (08:54→18:04)
--- NOTE | 2020-11-11 09:44 | PC.NURSE ---
Received verbal permission from patient to give information about her care to daughter, Elizabeth.
--- NOTE | 2020-11-11 10:00 | PC.NURSE ---
Pt refused breakfast this morning, encouraged to drink [place], drank a few sips but that was it. Pt has been sleeping all morning. Denies pain. Had an episode of nausea, refused nausea medication.
--- NOTE | 2020-11-11 10:07 | P.PN_ITS ---
Subjective Subjective: Interval history: She is overall feeling slightly better today. Still generally weak. Appetite is not good as noted by [id number] Christina. Has some Nepro protein shake. Reportedly may prefer Ensure/Glucerna. Added. Discussed with [id number] in case there is a flavor she prefers we do not have, they could bring it for her from outside. Vitals/I&O/Wt Last Vital Signs Temp 97.5 F L 11/11/20 08:00 Pulse 65 11/11/20 09:20 Resp 20 H 11/11/20 09:20 BP 128/52 11/11/20 08:47 Pulse Ox 96 11/11/20 09:20 11/10/20 11/11/20 11/11/20 22:59 06:59 14:59 Intake Total 130 / 250 Output Total 200 / 200 Balance 130 / 250 -200 / 50 Weight last 48 hrs Weight 93.531 kg Weight 94.5 kg Weight 91.989 kg Physical Exam Narrative: EXAM NARRATIVE: [id number] at bedside Const: COMMON NORMALS: no acute distress and patient oriented x3 GENERAL APPEARANCE: frail appearing NUTRITIONAL APPEARANCE: obese morbidly obese OTHER: Generally weak. HENMT: COMMON NORMALS: oropharynx normal Neck/C-Spine: COMMON NORMALS: no JVD Resp: COMMON NORMALS: normal respiratory effort AUSCULTATION: no crackles and diminished lung sounds Cardio: COMMON NORMALS: no JVD, regular rhythm, S1 normal heart sound present, S2 normal heart sound present and No murmurs present (Cardio) RHYTHM: regular rhythm HEART SOUNDS: S1 normal heart sound present and S2 normal heart sound present GI: COMMON NORMALS: Normal to inspection, nondistended, normoactive bowel sounds present, Soft to palpation and non-tender PALPATION: Yes Soft to palpation OTHER: Large pannus Extremity: COMMON NORMALS: no joint enlargement GENERAL: Yes edema (2+ LE edema extending gradually up to mid thighs) Neuro: COMMON NORMALS: patient oriented x3 and moves all extremities Skin: COMMON NORMALS: no rashes or lesions noted GENERAL SKIN EXAM: no rashes or lesions noted Urinary Catheter Management^: Wright: Cath Placed During This Visit: yes Reason for Continuing Indwelling Catheter: Accurate Measurement of Urinary Output in Critically Ill Patients Urinary Catheter Date of Insertion: 11/10/20 Urinary Catheter Time of Insertion: 19:30 Data : 11/11/20 02:47 11/11/20 02:47 A&P Assessment and plan (1) Dyspnea: Overall with improvement with removal of fluid with dialysis. Crackles appears to have resolved. Still diminished air entry, still requiring low rate supplemental oxygen. Persistent fluid overload on x-ray this morning. Bi lateral pleural effusions noted (moderate left and small to moderate right). Anasarca persists. Continue dialysis, fluid removal with an adequate response to Lasix. Appreciate cardiology consultation with regards to aortic stenosis, troponin elevation in setting of CAD/history of CABG. Once volume status optimized and if she continues to want to pursue more aggressive interventions heart cath may be performed later during the same hospitalization to closer assess coronary arteries, aortic valve to see whether or not may benefit from aortic valve replacement for which would need referral to outside facility. Royrdu-wx-jyy Christina at bedside this morning. Discussed the findings and tentative plans with [id number]-kmz Adia as well. Her brothers may be visiting her later today. Wright catheter for I&O Bibasilar opacification thought to be secondary to fluid overload, CHF, so far no signs of sepsis/pneumonia although could not be excluded on x-ray this morning. Monitor symptoms, in case signs of pneumonia consider addition of antibiotic. UA sample contaminated, repeat. Illness not suggestive of COVID-19. Completed her vaccinations. Discussed with zeycesf-ek-rve Adia her overall frailty, generalized weakness, spqrvd-gn-qel states she has not had a good appetite, not eating well. Discussed concern regarding overall prognosis given quite significant generalized weakness and multiple serious underlying conditions including advanced renal failure, congestive heart failure, possibly severe aortic stenosis with underlying CAD, advanced age and other comorbidities. Discussed she is at high risk of additional complications, failure to thrive and mortality. Encouraged patient to participate with physical therapy as she is at very severe risk of deconditioning. Discussed with her consideration also of rehabilitation at SNF after discharge and she would be agreeable. Appreciate discharge planning assistance with arrangements. Status: Acute (2) Acute exacerbation of CHF (congestive heart failure): Acute systolic congestive heart failure exacerbation. Anasarca. As above. EF appears possibly unchanged, 40-50% as per echo in 2016. Currently noted grade 3 diastolic dysfunction. Appears to have new possibly severe aortic stenosis. Appreciate cardiology consultation. BP improved. Adding very cautiously losartan 12.5mg. Last echo in 2016 showing 40-50% EF. Noted troponin elevation, although no chest pain, suspect this is related to demand ischemia in the setting of progressive renal failure. Would benefit from additional risk stratification once volume status optimized. Continue cardiac medications. TSH 11.55. Status: Acute Qualifiers: Heart failure type: combined systolic and diastolic Qualified Code(s): I50.43 - Acute on chronic combined systolic (congestive) and diastolic (congestive) heart failure (3) Chronic kidney disease, stage 5, kidney failure: S/p tunneled HD catheter 11/08. Initiated dialysis morning 11/09. Appreciate nephrology consultation. Status: Acute (4) Acute hyperkalemia: Improved with treatment. Status: Acute (5) Elevated troponin: As above. Aspirin. Statin benefit unclear with ESRD on hemodialysis. Beta-lori held due to slow heart rates. Monitor. Appreciate cardiology evaluation. Status: Acute (6) Hypothyroidism: TSH 11.55. Increase levothyroxine dose to 137. Follow-up thyroid function outpatient. Status: Acute Additional A&P Information Intertrigo: Yeast infection under pannus, continue nystatin. DM2: Continue insulin, add SSI CAD, status post CABG Chronic systolic CHF History of CVA Obesity: Reposition frequently. PT. At assisted living walks with a walker. Discussed with [id number]-ll-ldv Christina and Adia Davis. Attestations Medical Necessity Statement*: Continue admission for assessment management of acute CHF in the setting of ESRD, lack of response to diuretics, requiring hemodialysis, generalized weakness, hypoxia with CHF, possibly severe aortic stenosis, CAD, needing additional investigation, hypothyroidism in a lady of advanced age. Coding Level of Care Code Acute Dental Mold Maker for g Fwd Exam Comprehensive Diagnoses Dyspnea R06.00 Acute exacerbation of CHF (congestive heart failure) I50.43 Heart failure type: combined systolic and diastolic Chronic kidney disease, stage 5, kidney failure N18.5 Acute hyperkalemia E87.5 Elevated troponin R77.8 Hypothyroidism E03.9
[2020-11-11 10:24] LABS: Chol HDL Ratio 3.84 mg/dL (0.0-4.40); Cholesterol 146 mg/dL (0-200); HDL Cholesterol 38 mg/dL (60-100); LDL Cholesterol Calculated 88 mg/dL (50-129); LDL HDL Ratio 2.32 RATIO (0.00-3.22); Triglycerides 98 mg/dL (0-150)
[2020-11-11 11:21] LABS: Glucose Point of Care 120 mg/dL (70-110)
--- NOTE | 2020-11-11 11:25 | PC.NURSE ---
Patient refused to reposition. Nurse educated on importance of turning to prevent pressure injuries.
--- NOTE | 2020-11-11 12:30 | PC.NURSE ---
Patient refuses food, and nutritional supplement.
--- NOTE | 2020-11-11 12:41 | PC.CHAP ---
Pastoral Care Encounter/Spiritual Assessment Type of Contact [] Declined electric razor mechanic visit [] Patient/Family/Request visit [] Outpatient visit [] Follow-up visit [] Physician referral [] Code/Alert [XX] Routine visit [] Staff referral [] Actively dying [XX] Patient sleeping [] Family support [] [] Out of room [] Palliative care [] [] Receiving care in room [] Pre-surgical visit [] Trauma [] Long length of stay [] ICU visit [] Other: Relational/Emotional Strength [] Patient feels connected with others/family/visitors/staff [] Distress [] Loneliness/isolation [] Abandonment Spirituality of Patient [] Person of Cecilia [] Attends [employer] of their Cecilia [] Believes in Prayer [] Reads Bible or Samaritan materials [] There are Spiritual issues to be addressed Novelty Twister Tender Interventions [] Prayer [] Active listening [] Non-anxious presence [] Spiritual/emotional support [] Crisis/trauma care [] Spiritual counseling [] Bereavement support [] Provided bereavement packet [] Provided Bible/devotional materials [] Provided toy/stuffed animal, coloring book to patient or family member [] Provided Communion [] Anointing/[place] [] Salvation [] Completed spiritual assessment [] Other: Impact on Illness or Injury [] Angry [] Fearful [] Anxious [] Often cries [] Exhaustion [] Unable to work [] Unable to attend nondenominational [] Unable to walk/stand [] Unable to read [] Unable to drive [] Unable to eat/drink [] Unable to sleep [] Unable to be with family [] Patient intubated [] Other: Summary Time spent with patient
[2020-11-11 12:53] LABS: Urine Appearance Cloudy (CLEAR); Urine Color Yellow (Yellow)
[2020-11-11 12:54] LABS: Add Urine Microscopic? YES; Bilirubin Urine Neg (Negative); Blood Urine Neg (Negative); Glucose Urine UA Norm (Normal); Ketones Urine Negative (Negative); Leukocyte Esterase Urine 2+ (Negative); Nitrate Urine Negative (Negative); Protein Urine 1+ (Negative); Urobilinogen Urine Norm (Negative); pH Urine 5 (5-7)
[2020-11-11 12:57] LABS: Squamous Epithelial Cell Urine 0-4 /hpf (0-5)
[2020-11-11 12:58] LABS: Bacteria Urine 3+ /hpf; Mucus Urine 1+ /hpf
[2020-11-11 12:59] LABS: Add Urine Culture? Yes; WBC Urine 40-55 /hpf (0-5)
--- NOTE | 2020-11-11 14:00 | PC.NURSE ---
Patient continues to refuse position change.
--- NOTE | 2020-11-11 15:12 | PC.NUTR ---
Dietary department contacted this RD regarding new order for Glucerna. Spoke with Dr. Patel who stated pt is not drinking Nepro, but may drink Glucerna. Notified dietary to d/c Aminaro at this time. Will follow up per policy.
[2020-11-11 18:11] LABS: Glucose Point of Care 131 mg/dL (70-110)
[2020-11-11 20:20] LABS: Glucose Point of Care 201 mg/dL (70-110)
[2020-11-11] MEDS: insulin glargine 100 units/1 mL 20 UNIT SUBCUT (20:55)
[2020-11-11] MEDS: sennosides 8.6 mg Tablet 17.2 MG PO (20:55)
[2020-11-12] VITALS (14 sets, daily range): BP systolic 93–157; BP diastolic 40–116; PULSE 62–78; RESP 18–32; TEMP 36.2–36.7; O2SAT 94–98
[2020-11-12] MEDS: FUROsemide 10 mg/mL SDV 4mL 40 MG IVP ×2 (01:19→11:57)
[2020-11-12] MEDS: heparin 5,000 unit/mL INJ 1 mL 5000 UNIT SUBCUT ×2 (05:26→17:52)
--- NOTE | 2020-11-12 06:20 | PC.NURSE ---
NURSE NOTE: PT C/O NOT HAVING A BM IN X1 DAY AND REQUESTED A STOOL SOFTENER. NOTIFIED DR. JOHNSTON AND RECEIVED ORDERS FOR SENNA X2 NOW. MEDICATION GIVEN ORDERED. NO RESULTS OF YET.
[2020-11-12 06:36] LABS: Glucose Point of Care 50 mg/dL (70-110)
[2020-11-12 07:13] LABS: Glucose Point of Care 76 mg/dL (70-110)
[2020-11-12 07:26] LABS: Basophils % 0.2 %; Eosinophils # 0.2 10^3/uL (0.0-0.8); Eosinophils % 1.9 %; Hematocrit 30.1 % (37.0-47.0); Hemoglobin 9.3 g/dL (11.5-15.3); Lymphocytes # 1.6 10^3/uL (0.8-4.8); Lymphocytes % 12.9 %; Mean Corpuscular HGB Conc 30.9 g/dL (30.0-36.0); Mean Corpuscular Hemoglobin 32.2 pg (28.0-34.0); Mean Corpuscular Volume 104.2 fL (81-99); Mean Platelet Volume 11.9 fL (7.4-10.4); Monocytes # 1.4 10^3/uL (0.2-0.9); Neutrophils # 9.03 10^3/uL (1.8-7.7); Neutrophils % 73.4 %; Nucleated Red Blood Cells % 0 %; Platelet Count 141 10^3/cmm (130-400); Red Blood Count 2.89 10^6/uL (4.1-5.3); Red Cell Distribution Width 16.8 % (12.1-15.1); White Blood Count 12.3 10^3/uL (4.0-10.0)
--- NOTE | 2020-11-12 07:45 | PC.NURSE ---
pt leaving for dialysis at this time
[2020-11-12 08:47] LABS: Alanine Aminotransferase 11 U/L (0-33); Albumin Level 2.6 g/dL (3.5-5.2); Alkaline Phosphatase 72 IU/L (35-105); Anion Gap 13.9 (5-19); Aspartate Amino Transferase 18 U/L (0-32); Blood Urea Nitrogen 54 mg/dL (8-23); Calcium 7.3 mg/dL (8.5-10.5); Carbon Dioxide 27 mmol/L (22-29); Chloride 101 mmol/L (98-107); Globulin 2.4 g/dL (1.3-4.6); Glucose 89 mg/dL (65-115); Magnesium 1.8 mg/dL (1.7-2.3); Osmolality Calculated 300 mOsm/kg (285-295); Phosphorus 3.9 mg/dL (2.5-4.5); Potassium 3.9 mmol/L (3.5-5.1); Sodium 138 mmol/L (136-145); Total Bilirubin 0.4 mg/dL (0.15-1.2)
[2020-11-12] MEDS: albumin 12.5 GM/50 ML VIAL IV (09:02)
--- NOTE | 2020-11-12 09:42 | PC.HD ---
Patient hypotensive on arrival, asymptomatic. Machine temp set to 35.5.
[2020-11-12] MEDS: acetaminophen 325 mg Tablet 650 MG PO (10:21)
[2020-11-12] MEDS: aspirin 81 mg EC Tablet PO (10:22)
[2020-11-12] MEDS: calcium acetate 667 mg Capsule 1334 MG PO ×3 (10:23→17:51)
[2020-11-12] MEDS: levothyroxine 137 mcg Tablet PO (10:23)
[2020-11-12] MEDS: b-complex-vitamin c Tablet 1 EACH PO (10:23)
--- NOTE | 2020-11-12 10:49 | P.PN_ITS ---
Subjective Subjective: Interval history: Seen and examined on hemodialysis today. She is tolerating the therapy well without any complications. Hemodynamic parameters reviewed, remained stable. 3K bath being used, 2L of ultrafiltration is the goal. She is extremely hard of hearing, however, from the information that we can get, she does appear to be comfortable at this time. She is breathing comfortably on nasal cannula, she does have some mild global anasarca. Vitals/I&O/Wt Last Vital Signs Temp 97.7 F 11/12/20 08:00 Pulse 68 11/12/20 08:00 Resp 22 H 11/12/20 08:00 BP 93/52 11/12/20 08:00 Pulse Ox 96 11/12/20 07:29 11/11/20 11/12/20 11/12/20 22:59 06:59 14:59 Intake Total 237 / 237 Output Total 300 / 300 300 / 600 Balance -63 / -63 -300 / -363 Weight last 48 hrs Weight 93.071 kg Weight 93.531 kg Weight 94.5 kg Physical Exam Narrative: EXAM NARRATIVE: Constitutional: Awake, comfortable HEENT: Wet mucosa, no jvp, non icteric Lungs: Bilaterally clear without discernible wheeze, rales in all lung zones CVS: S1 S2, no murmurs Abdo: Soft, BS ok Ext 4: Minimal edema, peripheral perfusion with no cyanosis Neurological: Grossly non-focal Urinary Catheter Management^: Wright: Cath Placed During This Visit: yes Reason for Continuing Indwelling Catheter: Accurate Measurement of Urinary Output in Critically Ill Patients Urinary Catheter Date of Insertion: 11/10/20 Urinary Catheter Time of Insertion: 19:30 Data : 11/12/20 07:04 11/12/20 08:00 Micro: Microbiology 11/11/20 12:25 Urine Culture - Preliminary Urine,Clean Catch Gram Negative Rods A&P Additional A&P Information 1. New ESRD Recent progression to end-stage renal disease, now initiated on hemodialysis. Currently on Thursday, Thursday, Thursday schedule here in the hospital. We will plan to do dialysis again on Thursday but I will evaluate her for additional need tomorrow morning. Case management to organize outpatient hemodialysis spot in Dr. Green's clinic. 2. CHF/ Input from Dr. Grimes is noted. Plans to treat CHF, additionally with ultrafiltration with hemodialysis. Possible intervention down the road, will follow the story closely. 3. Hemodynamics Currently well maintained on hemodialysis, we do need to be cautious with ultrafiltration. 4. Anemia of end-stage renal disease Hemoglobin 9.3, will continue to monitor closely during hospitalization. If it drops much more we will dose EPO and check iron parameters. 5. Disposition Prep for long-term facility noted. Aakash Gutierrez MD Nephrology [phone] Patient seen and examined via telemedicine, with the assistance of the bedside RN > 25 min spent in evaluation and mgmt of patient Attestations Medical Necessity Statement*: Eval for eSRD mgmt Coding Level of Care Code Acute Speed Belt Sander for Chg Fwd
[2020-11-12 11:48] LABS: Glucose Point of Care 72 mg/dL (70-110)
[2020-11-12] MEDS: nystatin powder 15 gm Btl 1 APPLIC TOPICAL ×2 (12:05→17:51)
--- NOTE | 2020-11-12 12:05 | PC.HD ---
Patient had transient hypotension, improved with legs elevated, decreased machine temperature, turning off UF, but due to recurrence albumin 12.5 gm given per orders after which BP much more stable and pt able to meet fluid removal goal. Pt was asymptomatic during hypotensive episodes. Tx completed without further incident.
[2020-11-12] MEDS: losartan 50 mg Tablet 12.5 MG PO (12:11)
--- NOTE | 2020-11-12 13:00 | PC.NURSE ---
Pt refuses to change positions today, refuses to eat. Has drank some of her nutritional supplements.
--- NOTE | 2020-11-12 13:57 | P.PN_ITS ---
Subjective Subjective: Interval history: Patient had the 2 L of fluid she again seems to be drowsy. Answers to questions mostly by us or no. Denies any chest pain or chest tightness. Shortness of breath is significantly improved. No palpitations or syncopal episodes. No fever, chills or cough. Medications: Reviewed: Yes Medication Review Details: Current Medications Acetaminophen (Acetaminophen 325 Mg Tablet) 650 mg PO Q6H PRN PRN Reason: Mild/Mod Pain Or Temp >/= 101 Last Admin: 11/12/20 10:21 Dose: 650 mg Documented by: Albuterol Sulfate (Albuterol 8 Gm Mdi) 2 puff INHALATION Q4H PRN PRN Reason: Shortness Of Breath Aspirin (Aspirin 81 Mg Ec Tablet) 81 mg PO DAILY [facility] Last Admin: 11/12/20 10:22 Dose: 81 mg Documented by: Calcium Acetate (Calcium Acetate 667 Mg Capsule) 1,334 mg PO TIDWM [facility] Last Admin: 11/12/20 11:57 Dose: 1,334 mg Documented by: Dextrose (Dextrose 50% Syringe 50 Ml) 25 ml IVP ONCE PRN; Protocol PRN Reason: hypoglycemia protocol Dextrose (Dextrose 50% Syringe 50 Ml) 50 ml IVP PRN PRN; Protocol PRN Reason: hypoglycemia protocol Fluticasone Propionate (Fluticasone Nasal [place] 16gm Btl) 1 spray INTRANASAL BID PRN PRN Reason: Allergy Symptoms Furosemide (Furosemide 10 Mg/Ml Sdv 4ml) 40 mg IVP Q12H [facility] Last Admin: 11/12/20 11:57 Dose: 40 mg Documented by: Glucagon (Glucagon 1 Mg/Ml Inj 1 Ml) 1 mg IM ONCE PRN; Protocol PRN Reason: Adult Acute Hypoglycemia Prot. Heparin Sodium (Beef Lung) (Heparin 5,000 Unit/Ml Inj 1 Ml) 5,000 unit SUBCUT Q12H [facility] Last Admin: 11/12/20 05:26 Dose: 5,000 unit Documented by: Dextrose (D5w) 500 mls @ 100 mls/hr IV ONCE PRN; Protocol PRN Reason: Adult Acute Hypoglycemia Prot Sodium Chloride (Sodium Chloride 0.9%) 1,000 mls @ 0 mls/hr IV .Q0M PRN PRN Reason: hypotension or symptomatic Albumin Human (Albumin) 12.5 gm in 50 mls @ 60 mls/hr IV PRN PRN PRN Reason: Hypotension and/or symptomatic Last Infusion: 11/12/20 11:35 Dose: Infused Documented by: Insulin Aspart (Insulin Aspart 100 Unit/1 Ml) 0 unit SUBCUT WM&BEDTIME [facility]; Protocol Last Admin: 11/12/20 11:52 Dose: Not Given Documented by: Insulin Glargine (Insulin Glargine 100 Units/1 Ml) 20 unit SUBCUT BEDTIME [facility] Last Admin: 11/11/20 20:55 Dose: 20 unit Documented by: Levothyroxine Sodium (Levothyroxine 137 Mcg Tablet) 137 mcg PO DAILY [facility] Last Admin: 11/12/20 10:23 Dose: 137 mcg Documented by: Losartan Potassium (Losartan 50 Mg Tablet) 12.5 mg PO DAILY [facility] Last Admin: 11/12/20 12:11 Dose: 12.5 mg Documented by: Multivitamins (Q-Tyussur-Vxvznvf C Tablet) 1 each PO DAILY [facility] Last Admin: 11/12/20 10:23 Dose: 1 each Documented by: Non-Formulary Medication (Lactobacillus Rhamnosus Gg [Culturelle]) 1 cap PO DAILY PRN PRN Reason: unknown Non-Formulary Medication (Thyroid Complex) 1 tab PO DAILY [facility] Last Admin: 11/12/20 10:41 Dose: Not Given Documented by: Nystatin (Nystatin Powder 15 Gm Btl) 1 applic TOPICAL BID [facility] Last Admin: 11/12/20 12:05 Dose: 1 applic Documented by: Ondansetron HCl (Ondansetron 2 Mg/Ml Sdv 2 Ml) 4 mg IVP Q8H PRN PRN Reason: vomiting, or N/V if npo Last Admin: 11/11/20 03:00 Dose: 4 mg Documented by: Senna (Sennosides 8.6 Mg Tablet) 17.2 mg PO BEDTIME [facility] Last Admin: 11/11/20 20:55 Dose: 17.2 mg Documented by: Vitals/I&O/Wt Last Vital Signs Temp 97.8 F 11/12/20 12:00 Pulse 69 11/12/20 12:00 Resp 18 11/12/20 12:00 BP 118/43 11/12/20 12:11 Pulse Ox 95 11/12/20 12:00 11/11/20 11/12/20 11/12/20 22:59 06:59 14:59 Intake Total 237 / 237 410 / 410 Output Total 300 / 300 300 / 600 Balance -63 / -63 -300 / -363 410 / 410 Weight last 48 hrs Weight 201 lb 4.513 oz Weight 205 lb 3 oz Weight 206 lb 3.2 oz Weight 208 lb 5.389 oz Physical Exam Narrative: EXAM NARRATIVE: GENERAL: The patient is drowsy but answers questions appropriately. HEENT: Moderate pallor. No icterus or lymphadenopathy. The pupils are symmetrical oral cavity: There are no mucous membrane lesions. NECK: Trachea appears to be central. No masses noted. No JVD or thyromegaly appreciated. No carotid bruit. RESPIRATORY: Chest is symmetrical. No intercostals muscle retraction or any accessory muscle activation. There is no chest wall tenderness. Breath sounds are heard bilaterally. No rales or rhonchi heard. The intensity of the breath sounds are diminished in the bases. BREASTS: Deferred. HEART: The PMI could not be palpated. No palpable precordial events. S1 and S2 are normal. No S3 or S4 heard. No pericardial rub or any click heard. Ejection systolic murmur grade 3/6 in the aortic area. No diastolic murmurs. ABDOMEN: No vessel pulsations or distention. No tenderness. No organomegaly appreciated. No abdominal bruit. Bowel sounds are normally heard. : Deferred. RECTAL: Deferred. LYMPHATIC: No lymphadenopathy noted in the neck or groin. EXTREMITIES: 1+ edema both lower extremities. No cyanosis. Peripheral pulses are weak bilaterally. MUSCULOSKELETAL: No acute joint deformities or swelling. SKIN: There are no significant scars or skin rash noted. NEUROPSYCHIATRIC: The patient is drowsy but answers questions appropriately. No focal motor deficits. Urinary Catheter Management^: Wright: Cath Placed During This Visit: yes Reason for Continuing Indwelling Catheter: Accurate Measurement of Urinary Output in Critically Ill Patients Urinary Catheter Date of Insertion: 11/10/20 Urinary Catheter Time of Insertion: 19:30 Data : 11/13/20 04:42 11/13/20 04:42 Micro: Microbiology 11/11/20 12:25 Urine Culture - Preliminary Urine,Clean Catch Gram Negative Rods A&P Assessment and plan (1) Aortic valve stenosis, nonrheumatic: Patient seems to have possibly severe low gradient aortic valve stenosis. Apparently she she had no significant gradient across the aortic valve in 2015. At this point I am not convinced that she has severe aortic valve stenosis. But because of the chronic kidney disease, she could have an accelerated degenerative process on the aortic valve causing the stenosis. This needs to be further evaluated. Hemodynamically she seems to be stable. We may consider doing a dobutamine stress echo to rule out any pseudostenosis. I also will be discussing with the rest of the family regarding the management of the aortic valve stenosis. Status: Acute (2) Acute exacerbation of CHF (congestive heart failure): Most likely this is from the worsening kidney function. Possibility of underlying coronary ischemia causing this cannot be excluded. Her troponin T was elevated at the baseline but the delta at 2 hours and 6 hours were negative. In view of her history of coronary heart disease and coronary bypass surgery, possibility of underlying coronary ischemia causing this cannot be excluded. This needs to be further evaluated. Status: Acute Qualifiers: Heart failure type: combined systolic and diastolic Qualified Code(s): I50.43 - Acute on chronic combined systolic (congestive) and diastolic (congestive) heart failure (3) Chronic kidney disease, stage 5, kidney failure: Patient is currently on hemodialysis. The BUN/creatinine seems to be coming down. She was hyperkalemic. Currently the potassium is within normal limits. Status: Acute (4) Atherosclerosis of coronary artery of [place] heart without angina pectoris: Patient had three-vessel coronary bypass surgery in 2016. She has not had any functional evaluation since then. She may require a repeat cardiac catheterization to evaluate the coronary arteries as well as the grafts, to decide on further management. Status: Acute Qualifiers: Coronary Disease-Associated Artery/Lesion type: [place] artery Qualified Code(s): I25.10 - Atherosclerotic heart disease of [place] coronary artery without angina pectoris Additional A&P Information Her other problems are Type 2 diabetes Chronic anemia Essential benign hypertension Dyslipidemia History of CVA Hyper hypothyroid state Hyperparathyroid? After discussing with the rest of the family, we may make a final decision about the management of the aortic valve stenosis. Attestations Medical Necessity Statement*: Patient requires continued hospital stay for close monitoring and further management Coding Level of Care Code Acute Business Services Tech for Shanellejillian Fwd Diagnoses Aortic valve stenosis, nonrheumatic I35.0 Acute exacerbation of CHF (congestive heart failure) I50.43 Heart failure type: combined systolic and diastolic Chronic kidney disease, stage 5, kidney failure N18.5 Atherosclerosis of coronary artery of [place] heart without angina pectoris I25.10 Coronary Disease-Associated Artery/Lesion type: [place] artery
[2020-11-12 16:33] LABS: Glucose Point of Care 105 mg/dL (70-110)
--- NOTE | 2020-11-12 17:00 | PM.PN ---
Subjective Subjective: Interval history: HD today, no new complaints Medications: Reviewed: Yes Vitals/I&O/Wt Last Vital Signs Temp 97.6 F 11/13/20 04:00 Pulse 84 11/13/20 05:07 Resp 18 11/13/20 04:00 BP 158/76 11/13/20 04:00 Pulse Ox 90 11/13/20 04:00 11/12/20 11/12/20 11/13/20 14:59 22:59 06:59 Intake Total 410 / 410 480 / 890 Output Total 400 / 400 400 / 800 200 / 1000 Balance 80 / 90 -200 / -110 Weight last 48 hrs Weight 91.3 kg Weight 93.071 kg Weight 93.531 kg Physical Exam Urinary Catheter Management^: Wright: Cath Placed During This Visit: yes Reason for Continuing Indwelling Catheter: Other Urinary Catheter Date of Insertion: 11/10/20 Urinary Catheter Time of Insertion: 19:30 Data : 11/12/20 07:04 11/12/20 08:00 Micro: Microbiology 11/11/20 12:25 Urine Culture - Preliminary Urine,Clean Catch Gram Negative Rods A&P Assessment and plan (1) Dyspnea: Overall with improvement with removal of fluid with dialysis. Appreciate cardiology consultation with regards to aortic stenosis, troponin elevation in setting of CAD/history of CABG. Patient declines further cardiac w/up for on current admission- discussed the need for dobutamine stress echo, angiogram and then possible referral for TAVR- she states she would like to think about this once discharged and follow up as outpatient. Declines further w/up for now. Wright catheter for I&O Bibasilar opacification thought to be secondary to fluid overload, CHF, so far no signs of sepsis/pneumonia Encouraged patient to participate with physical therapy as she is at very severe risk of deconditioning. Status: Acute (2) Acute exacerbation of CHF (congestive heart failure): Acute systolic congestive heart failure exacerbation. Anasarca. As above. EF appears possibly unchanged, 40-50% as per echo in 2016. Currently noted grade 3 diastolic dysfunction. Appears to have new possibly severe aortic stenosis. Appreciate cardiology consultation. BP improved. Adding very cautiously losartan 12.5mg. Last echo in 2016 showing 40-50% EF. Noted troponin elevation, although no chest pain, suspect this is related to demand ischemia in the setting of progressive renal failure. Status: Acute Qualifiers: Heart failure type: combined systolic and diastolic Qualified Code(s): I50.43 - Acute on chronic combined systolic (congestive) and diastolic (congestive) heart failure (3) Chronic kidney disease, stage 5, kidney failure: S/p tunneled HD catheter 11/08. Initiated dialysis morning 11/09. Appreciate nephrology consultation. Status: Acute (4) Acute hyperkalemia: Improved with treatment. Status: Acute (5) Elevated troponin: As above. Aspirin. Statin benefit unclear with ESRD on hemodialysis. Beta-lori held due to slow heart rates. Monitor. Appreciate cardiology evaluation. Status: Acute (6) Hypothyroidism: TSH 11.55. Increase levothyroxine dose to 137. Follow-up thyroid function outpatient. Status: Acute Additional A&P Information Intertrigo: Yeast infection under pannus, continue nystatin. DM2: Continue insulin, SSI CAD, status post CABG Chronic systolic CHF History of CVA Obesity: Reposition frequently. PT. Attestations Medical Necessity Statement*: HD today, volume optimization Coding Level of Care Code Acute Premium Cancellation Clerk for Chg Fwd Diagnoses Dyspnea R06.00 Acute exacerbation of CHF (congestive heart failure) I50.43 Heart failure type: combined systolic and diastolic Chronic kidney disease, stage 5, kidney failure N18.5 Acute hyperkalemia E87.5 Elevated troponin R77.8 Hypothyroidism E03.9
[2020-11-12 20:35] LABS: Glucose Point of Care 141 mg/dL (70-110)
[2020-11-13] VITALS (14 sets, daily range): BP systolic 99–158; BP diastolic 40–93; PULSE 72–85; RESP 16–27; TEMP 36.4–37.1; O2SAT 90–96
[2020-11-13] MEDS: FUROsemide 10 mg/mL SDV 4mL 40 MG IVP ×2 (01:50→12:06)
[2020-11-13 05:24] LABS: Basophils % 0.2 %; Eosinophils # 0.3 10^3/uL (0.0-0.8); Hematocrit 31.9 % (37.0-47.0); Hemoglobin 9.9 g/dL (11.5-15.3); Lymphocytes # 1.8 10^3/uL (0.8-4.8); Lymphocytes % 13.3 %; Mean Corpuscular Hemoglobin 31.7 pg (28.0-34.0); Mean Corpuscular Volume 102.2 fL (81-99); Mean Platelet Volume 11.2 fL (7.4-10.4); Monocytes # 1.5 10^3/uL (0.2-0.9); Monocytes % 10.4 %; Neutrophils # 10.17 10^3/uL (1.8-7.7); Neutrophils % 73.3 %; Nucleated Red Blood Cells % 0.1 %; Platelet Count 148 10^3/cmm (130-400); Red Blood Count 3.12 10^6/uL (4.1-5.3); Red Cell Distribution Width 16.3 % (12.1-15.1); White Blood Count 13.9 10^3/uL (4.0-10.0)
[2020-11-13 05:43] LABS: Alanine Aminotransferase 12 U/L (0-33); Albumin Level 2.9 g/dL (3.5-5.2); Alkaline Phosphatase 79 IU/L (35-105); Anion Gap 15.2 (5-19); Aspartate Amino Transferase 24 U/L (0-32); Blood Urea Nitrogen 28 mg/dL (8-23); Carbon Dioxide 27 mmol/L (22-29); Chloride 99 mmol/L (98-107); Globulin 2.7 g/dL (1.3-4.6); Glucose 122 mg/dL (65-115); Magnesium 1.9 mg/dL (1.7-2.3); Osmolality Calculated 291 mOsm/kg (285-295); Phosphorus 2.9 mg/dL (2.5-4.5); Potassium 4.2 mmol/L (3.5-5.1); Sodium 137 mmol/L (136-145); Total Bilirubin 0.6 mg/dL (0.15-1.2); Total Protein 5.6 g/dL (6.6-8.7)
[2020-11-13] MEDS: heparin 5,000 unit/mL INJ 1 mL 5000 UNIT SUBCUT ×2 (06:09→18:24)
[2020-11-13 06:25] LABS: Glucose Point of Care 117 mg/dL (70-110)
--- NOTE | 2020-11-13 08:32 | PC.NURSE ---
pt refuses to turn at this time
--- NOTE | 2020-11-13 10:21 | PC.NURSE ---
Morning Medications Patient medications were gathered and brought to patient's room. Patient at first stated that she could swallow the pills with a glass of water, and upon inquiring, the patient stated she had no questions about the medications presented. Immediately after, the patient stated she did not want to take any medications. After asking her if she would prefer for her medications to be crushed in applesauce, patient still refused. Guests in room suggested to put crushed medications in chocolate pudding and patient agreed. After crushing and presenting the medications in chocolate pudding, patient refused medications again.
--- NOTE | 2020-11-13 10:34 | PC.NUTR ---
Nutrition reassessment: Spoke with pt and family regarding meal/supplement preferences. Pt likes silverman soup and chicken noodle soup, will notify dietary staff. Pt also continues to prefer Glucerna or Ensure in butter pecan flavor (order in place). Family report difficulty swallowing solid foods, deny trouble with liquids. Notified Dr. Trotter and recommended BEATER TENDER eval. Will send soft foods until BEATER TENDER recommendations made.
[2020-11-13 11:15] LABS: Glucose Point of Care 137 mg/dL (70-110)
[2020-11-13] MEDS: cefTRIAXone 1,000 MG in sodium chloride 0.9% (plus) 50 ML 100 MG IV (11:30)
--- NOTE | 2020-11-13 11:39 | P.PN_ITS ---
Subjective Subjective: Interval history: No new complaints. She was dialyzed yesterday. Some mild dyspnea today, some crackles noted in the bases of her lungs. Some mild global anasarca. No new uremic symptoms. Hemodynamics remained stable overnight. Medications: Reviewed: Yes Medication Review Details: Current Medications Acetaminophen (Acetaminophen 325 Mg Tablet) 650 mg PO Q6H PRN PRN Reason: Mild/Mod Pain Or Temp >/= 101 Last Admin: 11/12/20 10:21 Dose: 650 mg Documented by: Albuterol Sulfate (Albuterol 8 Gm Mdi) 2 puff INHALATION Q4H PRN PRN Reason: Shortness Of Breath Aspirin (Aspirin 81 Mg Ec Tablet) 81 mg PO DAILY [facility] Last Admin: 11/12/20 10:22 Dose: 81 mg Documented by: Calcium Acetate (Calcium Acetate 667 Mg Capsule) 1,334 mg PO TIDWM [facility] Last Admin: 11/12/20 11:57 Dose: 1,334 mg Documented by: Dextrose (Dextrose 50% Syringe 50 Ml) 25 ml IVP ONCE PRN; Protocol PRN Reason: hypoglycemia protocol Dextrose (Dextrose 50% Syringe 50 Ml) 50 ml IVP PRN PRN; Protocol PRN Reason: hypoglycemia protocol Fluticasone Propionate (Fluticasone Nasal Howard 16gm Btl) 1 spray INTRANASAL BID PRN PRN Reason: Allergy Symptoms Furosemide (Furosemide 10 Mg/Ml Sdv 4ml) 40 mg IVP Q12H [facility] Last Admin: 11/12/20 11:57 Dose: 40 mg Documented by: Glucagon (Glucagon 1 Mg/Ml Inj 1 Ml) 1 mg IM ONCE PRN; Protocol PRN Reason: Adult Acute Hypoglycemia Prot. Heparin Sodium (Beef Lung) (Heparin 5,000 Unit/Ml Inj 1 Ml) 5,000 unit SUBCUT Q12H [facility] Last Admin: 11/12/20 05:26 Dose: 5,000 unit Documented by: Dextrose (D5w) 500 mls @ 100 mls/hr IV ONCE PRN; Protocol PRN Reason: Adult Acute Hypoglycemia Prot Sodium Chloride (Sodium Chloride 0.9%) 1,000 mls @ 0 mls/hr IV .Q0M PRN PRN Reason: hypotension or symptomatic Albumin Human (Albumin) 12.5 gm in 50 mls @ 60 mls/hr IV PRN PRN PRN Reason: Hypotension and/or symptomatic Last Infusion: 11/12/20 11:35 Dose: Infused Documented by: Insulin Aspart (Insulin Aspart 100 Unit/1 Ml) 0 unit SUBCUT WM&BEDTIME [facility]; Protocol Last Admin: 11/12/20 11:52 Dose: Not Given Documented by: Insulin Glargine (Insulin Glargine 100 Units/1 Ml) 20 unit SUBCUT BEDTIME [facility] Last Admin: 11/11/20 20:55 Dose: 20 unit Documented by: Levothyroxine Sodium (Levothyroxine 137 Mcg Tablet) 137 mcg PO DAILY [facility] Last Admin: 11/12/20 10:23 Dose: 137 mcg Documented by: Losartan Potassium (Losartan 50 Mg Tablet) 12.5 mg PO DAILY [facility] Last Admin: 11/12/20 12:11 Dose: 12.5 mg Documented by: Multivitamins (T-Gtlnqyb-Slfaaqm C Tablet) 1 each PO DAILY [facility] Last Admin: 11/12/20 10:23 Dose: 1 each Documented by: Non-Formulary Medication (Lactobacillus Rhamnosus Gg [Culturelle]) 1 cap PO DAILY PRN PRN Reason: unknown Non-Formulary Medication (Thyroid Complex) 1 tab PO DAILY [facility] Last Admin: 11/12/20 10:41 Dose: Not Given Documented by: Nystatin (Nystatin Powder 15 Gm Btl) 1 applic TOPICAL BID [facility] Last Admin: 11/12/20 12:05 Dose: 1 applic Documented by: Ondansetron HCl (Ondansetron 2 Mg/Ml Sdv 2 Ml) 4 mg IVP Q8H PRN PRN Reason: vomiting, or N/V if npo Last Admin: 11/11/20 03:00 Dose: 4 mg Documented by: Senna (Sennosides 8.6 Mg Tablet) 17.2 mg PO BEDTIME [facility] Last Admin: 11/11/20 20:55 Dose: 17.2 mg Documented by: Vitals/I&O/Wt Last Vital Signs Temp 97.5 F L 11/13/20 10:58 Pulse 74 11/13/20 10:58 Resp 18 11/13/20 10:58 BP 104/49 11/13/20 10:58 Pulse Ox 93 11/13/20 10:58 11/12/20 11/13/20 11/13/20 22:59 06:59 14:59 Intake Total 480 / 890 360 / 360 Output Total 400 / 800 775 / 1575 Balance 80 / 90 -775 / -685 360 / 360 Weight last 48 hrs Weight 91.127 kg Weight 91.3 kg Weight 93.071 kg Physical Exam Narrative: EXAM NARRATIVE: Constitutional: Awake, comfortable HEENT: Wet mucosa, no jvp, non icteric Lungs: Bilaterally clear without discernible wheeze, rales in all lung zones CVS: S1 S2, esm Abdo: Soft, BS ok Ext 4: Minimal edema, peripheral perfusion with no cyanosis Neurological: Grossly non-focal Urinary Catheter Management^: Wright: Cath Placed During This Visit: yes Reason for Continuing Indwelling Catheter: Other Urinary Catheter Date of Insertion: 11/10/20 Urinary Catheter Time of Insertion: 19:30 Data : 11/13/20 04:42 11/13/20 04:42 Micro: Microbiology 11/11/20 12:25 Urine Culture - Preliminary Urine,Clean Catch Gram Negative Rods A&P Additional A&P Information 1. New ESRD Recent progression to end-stage renal disease, now initiated on hemodialysis. Will plan on dialysis today 3K, UF 2-3L as tolerated with plan for next session on Case management to organize outpatient hemodialysis spot in Dr. Green's clinic. 2. CHF/ Input from Dr. Grimes is noted. Plans to treat CHF, additionally with ultrafiltration with hemodialysis. Possible intervention down the road, will follow the story closely. 3. Hemodynamics Currently stable, close monitoring on dialysis given 4. Anemia of end-stage renal disease Hemoglobin 9.3, will continue to monitor closely during hospitalization. If it drops much more we will dose EPO and check iron parameters. 5. Disposition Prep for [facility] facility noted. Aakash Gutierrez MD Nephrology [phone] Patient seen and examined via telemedicine, with the assistance of the bedside RN > 25 min spent in evaluation and mgmt of patient Attestations Medical Necessity Statement*: eval for eSRD Coding Level of Care Code Acute Upholstery Instructor for Shilpa Bowden
--- NOTE | 2020-11-13 11:40 | PM.PN ---
Subjective Subjective: Interval history: more tacypniec today, LE edema slightly increased compared to last evening , planned for HD today . urine cx preliminary with GNR Vitals/I&O/Wt Last Vital Signs Temp 97.5 F L 11/13/20 10:58 Pulse 74 11/13/20 10:58 Resp 18 11/13/20 10:58 BP 104/49 11/13/20 10:58 Pulse Ox 93 11/13/20 10:58 11/12/20 11/13/20 11/13/20 22:59 06:59 14:59 Intake Total 480 / 890 360 / 360 Output Total 400 / 800 775 / 1575 Balance 80 / 90 -775 / -685 360 / 360 Weight last 48 hrs Weight 91.127 kg Weight 91.3 kg Weight 93.071 kg Physical Exam Narrative: EXAM NARRATIVE: GEN: Awake, alert and oriented, no acute distress CVS: S1S2 N RS: CTA B/L Abd: Soft, nt/nd , bs+ SENIOR OPERATIONS MANAGER: no focal neuro deficits Urinary Catheter Management^: Wright: Cath Placed During This Visit: yes Reason for Continuing Indwelling Catheter: Other Urinary Catheter Date of Insertion: 11/10/20 Urinary Catheter Time of Insertion: 19:30 Data : 11/13/20 04:42 11/13/20 04:42 Micro: Microbiology 11/11/20 12:25 Urine Culture - Preliminary Urine,Clean Catch Gram Negative Rods A&P Assessment and plan (1) Dyspnea: Overall with improvement with removal of fluid with dialysis. Appreciate cardiology consultation with regards to aortic stenosis, troponin elevation in setting of CAD/history of CABG. Patient declines further cardiac w/up for on current admission- discussed the need for dobutamine stress echo, angiogram and then possible referral for TAVR- she states she would like to think about this once discharged and follow up as outpatient. Declines further w/up for now. Wright catheter for I&O Bibasilar opacification thought to be secondary to fluid overload, CHF, so far no signs of sepsis/pneumonia Encouraged patient to participate with physical therapy as she is at very severe risk of deconditioning. Status: Acute (2) Acute exacerbation of CHF (congestive heart failure): Acute systolic congestive heart failure exacerbation. Anasarca. As above. EF appears possibly unchanged, 40-50% as per echo in 2016. Currently noted grade 3 diastolic dysfunction. Appears to have new possibly severe aortic stenosis. Appreciate cardiology consultation. BP improved. Adding very cautiously losartan 12.5mg. Last echo in 2016 showing 40-50% EF. Noted troponin elevation, although no chest pain, suspect this is related to demand ischemia in the setting of progressive renal failure. Status: Acute Qualifiers: Heart failure type: combined systolic and diastolic Qualified Code(s): I50.43 - Acute on chronic combined systolic (congestive) and diastolic (congestive) heart failure (3) Chronic kidney disease, stage 5, kidney failure: S/p tunneled HD catheter 11/08. Initiated dialysis morning 11/09. Appreciate nephrology consultation. Status: Acute (4) Acute hyperkalemia: Improved with treatment. Status: Acute (5) Elevated troponin: As above. Aspirin. Statin benefit unclear with ESRD on hemodialysis. Beta-lori held due to slow heart rates. Monitor. Appreciate cardiology evaluation. Status: Acute (6) Hypothyroidism: TSH 11.55. Increase levothyroxine dose to 137. Follow-up thyroid function outpatient. Status: Acute Additional A&P Information Intertrigo: Yeast infection under pannus, continue nystatin. DM2: Continue insulin, SSI CAD, status post CABG Chronic systolic CHF History of CVA Obesity: Reposition frequently. PT. Attestations Medical Necessity Statement*: hemodialysis today, iv abx for UTI Coding Level of Care Code Acute Blanket Winder Helper for Chg Fwd Diagnoses Dyspnea R06.00 Acute exacerbation of CHF (congestive heart failure) I50.43 Heart failure type: combined systolic and diastolic Chronic kidney disease, stage 5, kidney failure N18.5 Acute hyperkalemia E87.5 Elevated troponin R77.8 Hypothyroidism E03.9
[2020-11-13 14:41] LABS: SARS Covid-2 Antigen Negative (Negative)
[2020-11-13 18:19] LABS: Glucose Point of Care 91 mg/dL (70-110)
--- NOTE | 2020-11-13 18:53 | PM.PN ---
Subjective Subjective: Interval history: The patient denies any new symptoms. She still looks very lethargic and sleepy. No fever or chills. No cough. The vital signs remained stable. No new symptoms. Medications: Reviewed: Yes Medication Review Details: Current Medications Acetaminophen (Acetaminophen 325 Mg Tablet) 650 mg PO Q6H PRN PRN Reason: Mild/Mod Pain Or Temp >/= 101 Last Admin: 11/12/20 10:21 Dose: 650 mg Documented by: Albuterol Sulfate (Albuterol 8 Gm Mdi) 2 puff INHALATION Q4H PRN PRN Reason: Shortness Of Breath Aspirin (Aspirin 81 Mg Ec Tablet) 81 mg PO DAILY [facility] [place] Last Admin: 11/13/20 10:18 Dose: Not Given Documented by: Calcium Acetate (Calcium Acetate 667 Mg Capsule) 1,334 mg PO TIDWM [facility] [place] Last Admin: 11/13/20 12:06 Dose: Not Given Documented by: Dextrose (Dextrose 50% Syringe 50 Ml) 25 ml IVP ONCE PRN; Protocol PRN Reason: hypoglycemia protocol Dextrose (Dextrose 50% Syringe 50 Ml) 50 ml IVP PRN PRN; Protocol PRN Reason: hypoglycemia protocol Fluticasone Propionate (Fluticasone Nasal [place] 16gm Btl) 1 spray INTRANASAL BID PRN PRN Reason: Allergy Symptoms Furosemide (Furosemide 10 Mg/Ml Sdv 4ml) 40 mg IVP Q12H [facility] [place] Last Admin: 11/13/20 12:06 Dose: 40 mg Documented by: Glucagon (Glucagon 1 Mg/Ml Inj 1 Ml) 1 mg IM ONCE PRN; Protocol PRN Reason: Adult Acute Hypoglycemia Prot. Heparin Sodium (Beef Lung) (Heparin 5,000 Unit/Ml Inj 1 Ml) 5,000 unit SUBCUT Q12H [facility] [place] Last Admin: 11/13/20 18:24 Dose: 5,000 unit Documented by: Dextrose (D5w) 500 mls @ 100 mls/hr IV ONCE PRN; Protocol PRN Reason: Adult Acute Hypoglycemia Prot Sodium Chloride (Sodium Chloride 0.9%) 1,000 mls @ 0 mls/hr IV .Q0M PRN PRN Reason: hypotension or symptomatic Albumin Human (Albumin) 12.5 gm in 50 mls @ 60 mls/hr IV PRN PRN PRN Reason: Hypotension and/or symptomatic Last Infusion: 11/12/20 11:35 Dose: Infused Documented by: Ceftriaxone Sodium 1,000 mg/ (Sodium Chloride) 50 mls @ 100 mls/hr IV Q24H [facility] [place]; Protocol Last Infusion: 11/13/20 18:25 Dose: Infused Documented by: Insulin Aspart (Insulin Aspart 100 Unit/1 Ml) 0 unit SUBCUT WM&BEDTIME [facility]ICIA; Protocol Last Admin: 11/13/20 12:06 Dose: Not Given Documented by: Insulin Glargine (Insulin Glargine 100 Units/1 Ml) 20 unit SUBCUT BEDTIME [facility] [place] Last Admin: 11/12/20 20:35 Dose: Not Given Documented by: Levothyroxine Sodium (Levothyroxine 137 Mcg Tablet) 137 mcg PO DAILY [facility] [place] Last Admin: 11/13/20 10:20 Dose: Not Given Documented by: Losartan Potassium (Losartan 50 Mg Tablet) 12.5 mg PO DAILY [facility] [place] Last Admin: 11/13/20 10:20 Dose: Not Given Documented by: Multivitamins (A-Mfgszhy-Mmbyjnb C Tablet) 1 each PO DAILY [facility] [place] Last Admin: 11/13/20 10:20 Dose: Not Given Documented by: Non-Formulary Medication (Lactobacillus Rhamnosus Gg [Culturelle]) 1 cap PO DAILY PRN PRN Reason: unknown Non-Formulary Medication (Thyroid Complex) 1 tab PO DAILY [facility] [place] Last Admin: 11/13/20 10:46 Dose: Not Given Documented by: Nystatin (Nystatin Powder 15 Gm Btl) 1 applic TOPICAL BID [facility] [place] Last Admin: 11/13/20 18:16 Dose: Not Given Documented by: Ondansetron HCl (Ondansetron 2 Mg/Ml Sdv 2 Ml) 4 mg IVP Q8H PRN PRN Reason: vomiting, or N/V if npo Last Admin: 11/11/20 03:00 Dose: 4 mg Documented by: Senna (Sennosides 8.6 Mg Tablet) 17.2 mg PO BEDTIME [facility] [place] Last Admin: 11/12/20 20:36 Dose: Not Given Documented by: Vitals/I&O/Wt Last Vital Signs Temp 97.7 F 11/13/20 18:38 Pulse 73 11/13/20 18:38 Resp 18 11/13/20 18:38 BP 127/66 11/13/20 18:38 Pulse Ox 96 11/13/20 16:00 06/11/13/20 11/13/20 06:59 14:59 22:59 Intake Total 360 / 360 110 / 470 Output Total 775 / 1575 Balance -775 / -685 360 / 360 110 / 470 Weight last 48 hrs Weight 189 lb 13.088 oz Weight 200 lb 14.4 oz Weight 201 lb 4.513 oz Weight 205 lb 3 oz Physical Exam Narrative: EXAM NARRATIVE: GENERAL: The patient is drowsy but answers questions appropriately. HEENT: Moderate pallor. No icterus or lymphadenopathy. The pupils are symmetrical oral cavity: There are no mucous membrane lesions. NECK: Trachea appears to be central. No masses noted. No JVD or thyromegaly appreciated. No carotid bruit. RESPIRATORY: Chest is symmetrical. No intercostals muscle retraction or any accessory muscle activation. There is no chest wall tenderness. Breath sounds are heard bilaterally. No rales or rhonchi heard. The intensity of the breath sounds are diminished in the bases. BREASTS: Deferred. HEART: The PMI could not be palpated. No palpable precordial events. S1 and S2 are normal. No S3 or S4 heard. No pericardial rub or any click heard. Ejection systolic murmur grade 3/6 in the aortic area. No diastolic murmurs. ABDOMEN: No vessel pulsations or distention. No tenderness. No organomegaly appreciated. No abdominal bruit. Bowel sounds are normally heard. : Deferred. RECTAL: Deferred. LYMPHATIC: No lymphadenopathy noted in the neck or groin. EXTREMITIES: 1+ edema both lower extremities. No cyanosis. Peripheral pulses are weak bilaterally. MUSCULOSKELETAL: No acute joint deformities or swelling. SKIN: There are no significant scars or skin rash noted. NEUROPSYCHIATRIC: The patient is drowsy but answers questions appropriately. No focal motor deficits. Urinary Catheter Management^: Wright: Cath Placed During This Visit: yes, but has since been removed by the nurse Reason for Continuing Indwelling Catheter: Accurate Measurement of Urinary Output in Critically Ill Patients Urinary Catheter Date of Insertion: 11/10/20 Urinary Catheter Time of Insertion: 19:30 Date Urinary Catheter Removed: 11/13/20 Time Urinary Catheter Discontinued: 14:16 Data : 11/13/20 04:42 11/13/20 04:42 Other Labs: Laboratory Last Values WBC 13.9 10^3/uL (4.0-10.0) H 11/13/20 04:42 Corrected WBC Cancelled 11/12/20 02:46 RBC 3.12 10^6/uL (4.1-5.3) L 11/13/20 04:42 Hgb 9.9 g/dL (11.5-15.3) L 11/13/20 04:42 Hct 31.9 % (37.0-47.0) L 11/13/20 04:42 MCV 102.2 fL (81-99) H 11/13/20 04:42 MCH 31.7 pg (28.0-34.0) 11/13/20 04:42 MCHC 31.0 g/dL (30.0-36.0) 11/13/20 04:42 RDW 16.3 % (12.1-15.1) H 11/13/20 04:42 Plt Count 148 10^3/cmm (130-400) 11/13/20 04:42 MPV 11.2 fL (7.4-10.4) H 11/13/20 04:42 Gran % Cancelled 11/12/20 02:46 Neut % (Auto) 73.3 % 11/13/20 04:42 Lymph % (Auto) 13.3 % 11/13/20 04:42 [place] % (Auto) 10.4 % 11/13/20 04:42 Eos % (Auto) 2.0 % 11/13/20 04:42 Baso % (Auto) 0.2 % 11/13/20 04:42 Neut # (Auto) 10.17 10^3/uL (1.8-7.7) H 11/13/20 04:42 Lymph # (Auto) 1.8 10^3/uL (0.8-4.8) 11/13/20 04:42 [place] # (Auto) 1.5 10^3/uL (0.2-0.9) H 11/13/20 04:42 Eos # (Auto) 0.3 10^3/uL (0.0-0.8) 11/13/20 04:42 Baso # (Auto) 0.0 10^3/uL (0.0-0.1) 11/13/20 04:42 Absolute Gran (auto) Cancelled 11/12/20 02:46 Nucleated RBC % (auto) 0.1 % 11/13/20 04:42 Nucleated RBCs # 0.0 /100WBC 11/13/20 04:42 PT 15.70 SECONDS (12.1-14.9) H 11/08/20 13:15 INR 1.21 (0.8-1.2) H 11/08/20 13:15 Sodium 137 mmol/L (136-145) 11/13/20 04:42 Potassium 4.2 mmol/L (3.5-5.1) 11/13/20 04:42 Chloride 99 mmol/L (98-107) 11/13/20 04:42 Carbon Dioxide 27 mmol/L (22-29) 11/13/20 04:42 Anion Gap 15.2 (5-19) 11/13/20 04:42 BUN 28 mg/dL (8-23) H 11/13/20 04:42 Creatinine 2.6 mg/dL (0.5-0.9) H 11/13/20 04:42 GFR Calculation Not Reportable 11/13/20 04:42 Glucose 122 mg/dL (65-115) H 11/13/20 04:42 POC Glucose 91 mg/dL (70-110) 11/13/20 18:08 Calculated Osmolality 291 mOsm/kg (285-295) 11/13/20 04:42 Lactate 0.8 mmol/L (0.5-2.2) 11/08/20 13:15 Calcium 8.0 mg/dL (8.5-10.5) L 11/13/20 04:42 Phosphorus 2.9 mg/dL (2.5-4.5) 11/13/20 04:42 Magnesium 1.9 mg/dL (1.7-2.3) 11/13/20 04:42 Iron 43 ug/dL (37-145) 11/09/20 04:43 TIBC 218 mcg/dl 11/08/20 18:57 % Saturation 20.1 % (20-50) 11/08/20 18:57 Unsat Iron Binding 174 ug/dL (112-347) 11/08/20 18:57 Ferritin 372 ng/mL (15-150) H 11/09/20 04:43 Total Bilirubin 0.6 mg/dL (0.15-1.2) 11/13/20 04:42 AST 24 U/L (0-32) 11/13/20 04:42 ALT 12 U/L (0-33) 11/13/20 04:42 Alkaline Phosphatase 79 IU/L (35-105) 11/13/20 04:42 Troponin T Baseline 437 ng/L (0-10) H* 11/08/20 13:15 Troponin T 120 Minute 403.5 ng/L (0-10) H 11/08/20 15:10 Delta Troponin T -33.5 ABS# (0-10) L 11/08/20 15:10 Troponin T Hi Sens 6Hr 399.4 ng/L (0-10) H 11/08/20 18:57 Troponin T Hi Sens 6Hr Delta -37.6 ng/L (0-12) L 11/08/20 18:57 NT-Pro-B Natriuret Pep > 7000 pg/mL (0-450) H 11/08/20 13:15 Total Protein 5.6 g/dL (6.6-8.7) L 11/13/20 04:42 Albumin 2.9 g/dL (3.5-5.2) L 11/13/20 04:42 Globulin 2.7 g/dL (1.3-4.6) 11/13/20 04:42 Triglycerides 98 mg/dL (0-150) 11/11/20 02:47 Cholesterol 146 mg/dL (0-200) 11/11/20 02:47 LDL Cholesterol, Calc 88 mg/dL (50-129) 11/11/20 02:47 HDL Cholesterol 38 mg/dL (60-100) L 11/11/20 02:47 LDL/HDL Ratio 2.32 RATIO (0.00-3.22) 11/11/20 02:47 Cholesterol/HDL Ratio 3.84 mg/dL (0.0-4.40) 11/11/20 02:47 TSH 11.55 uIU/mL (0.27-4.20) H 11/09/20 04:43 PTH Intact 676.1 pg/mL (15-65) H 11/09/20 04:43 Calcium (PTH Intact) 7.3 mg/dL (8.5-10.5) L 11/09/20 04:43 Urine Color Yellow (Yellow) 11/11/20 12:25 Urine Appearance Cloudy (CLEAR) 11/11/20 12:25 Urine pH 5 (5-7) 11/11/20 12:25 Ur Specific [place] 1.010 (1.005-1.030) 11/11/20 12:25 Urine Protein 1+ (Negative) H 11/11/20 12:25 Urine Glucose (UA) Norm (Normal) 11/11/20 12:25 Urine Ketones Negative (Negative) 11/11/20 12:25 Urine Blood Neg (Negative) 11/11/20 12:25 Urine Nitrate Negative (Negative) 11/11/20 12:25 Urine Bilirubin Neg (Negative) 11/11/20 12:25 Urine Urobilinogen Norm mg/dL (Negative) 11/11/20 12:25 Ur Leukocyte Esterase 2+ (Negative) H 11/11/20 12:25 Urine RBC None /hpf (0-2) 11/11/20 12:25 Urine WBC 40-55 /hpf (0-5) H 11/11/20 12:25 Ur Squamous Epith Cells 0-4 /hpf (0-5) H 11/11/20 12:25 Amorphous Sediment Not Reportable 11/11/20 12:25 Urine Bacteria 3+ /hpf (NONE) H 11/11/20 12:25 Urine Mucus 1+ /hpf 11/11/20 12:25 Hep Bs Antigen Non-reactive (Nonreactive) 11/09/20 04:43 Hep Bs Antibody 3.5 (11.5-1000) L 11/09/20 04:43 Hepatitis C Antibody Non-reactive (Nonreactive) 11/09/20 04:43 SARS-CoV-2 Ag (Rapid) Negative (Negative) 11/13/20 13:45 Micro: Microbiology 11/11/20 12:25 Urine Culture - Final Urine,Clean Catch Klebsiella oxytoca A&P Assessment and plan (1) Aortic valve stenosis, nonrheumatic: Patient seems to have possibly severe low gradient aortic valve stenosis. Apparently she she had no significant gradient across the aortic valve in 2016. At this point I am not convinced that she has severe aortic valve stenosis. But because of the chronic kidney disease, she could have an accelerated degenerative process on the aortic valve causing the stenosis. This needs to be further evaluated. Hemodynamically she seems to be stable. We may consider doing a dobutamine stress echo to rule out any pseudostenosis. I discussed with the patient's daughter, Sofiya about the need for further work-up. At this point, the family is undecided about this. She is going to discuss with the rest of the family and will let me know. Status: Acute (2) Acute exacerbation of CHF (congestive heart failure): Most likely this is from the worsening kidney function. Possibility of underlying coronary ischemia causing this cannot be excluded. Her troponin T was elevated at the baseline but the delta at 2 hours and 6 hours were negative. In view of her history of coronary heart disease and coronary bypass surgery, possibility of underlying coronary ischemia causing this cannot be excluded. This needs to be further evaluated. Patient has no specific symptoms of coronary insufficiency otherwise. Status: Acute Qualifiers: Heart failure type: combined systolic and diastolic Qualified Code(s): I50.43 - Acute on chronic combined systolic (congestive) and diastolic (congestive) heart failure (3) Chronic kidney disease, stage 5, kidney failure: Patient is currently on hemodialysis. The BUN/creatinine seems to be coming down. Status: Acute (4) Atherosclerosis of coronary artery of [place] heart without angina pectoris: Patient had three-vessel coronary bypass surgery in 2016. She has not had any functional evaluation since then. She may require a repeat cardiac catheterization to evaluate the coronary arteries as well as the grafts, to decide on further management. Status: Acute Qualifiers: Coronary Disease-Associated Artery/Lesion type: [place] artery Qualified Code(s): I25.10 - Atherosclerotic heart disease of [place] coronary artery without angina pectoris Additional A&P Information Her other problems are Type 2 diabetes Chronic anemia Essential benign hypertension Dyslipidemia History of CVA Hyper hypothyroid state Hyperparathyroid? Patient is hemodynamic status is stable. No other specific symptoms of coronary insufficiency or aortic valve insufficiency. The family will let us know by tomorrow about their decision for further cardiac work-up. May continue on the current management at this point. 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
[2020-11-13 20:45] LABS: Glucose Point of Care 95 mg/dL (70-110)
[2020-11-14] VITALS (7 sets, daily range): BP systolic 126–144; BP diastolic 59–67; PULSE 74–84; RESP 16–20; TEMP 36.6; O2SAT 93–98
[2020-11-14] MEDS: FUROsemide 10 mg/mL SDV 4mL 40 MG IVP ×2 (00:54→13:01)
[2020-11-14] MEDS: heparin 5,000 unit/mL INJ 1 mL 5000 UNIT SUBCUT (05:47)
[2020-11-14 06:08] LABS: Basophils % 0.1 %; Eosinophils # 0.2 10^3/uL (0.0-0.8); Eosinophils % 1.8 %; Hemoglobin 10.5 g/dL (11.5-15.3); Lymphocytes # 1.5 10^3/uL (0.8-4.8); Lymphocytes % 11.3 %; Mean Corpuscular Hemoglobin 31.6 pg (28.0-34.0); Mean Corpuscular Volume 105.4 fL (81-99); Mean Platelet Volume 11.6 fL (7.4-10.4); Monocytes # 1.2 10^3/uL (0.2-0.9); Monocytes % 8.9 %; Neutrophils # 10.55 10^3/uL (1.8-7.7); Neutrophils % 77.1 %; Nucleated Red Blood Cells % 0 %; Platelet Count 135 10^3/cmm (130-400); Red Blood Count 3.32 10^6/uL (4.1-5.3); Red Cell Distribution Width 16.3 % (12.1-15.1); White Blood Count 13.7 10^3/uL (4.0-10.0)
[2020-11-14 06:43] LABS: Glucose Point of Care 110 mg/dL (70-110)
[2020-11-14 09:14] LABS: Alanine Aminotransferase 15 U/L (0-33); Albumin Level 2.7 g/dL (3.5-5.2); Alkaline Phosphatase 82 IU/L (35-105); Anion Gap 17.3 (5-19); Aspartate Amino Transferase 37 U/L (0-32); Blood Urea Nitrogen 17 mg/dL (8-23); Calcium 7.8 mg/dL (8.5-10.5); Carbon Dioxide 24 mmol/L (22-29); Chloride 99 mmol/L (98-107); Globulin 2.9 g/dL (1.3-4.6); Glucose 108 mg/dL (65-115); Magnesium 1.9 mg/dL (1.7-2.3); Osmolality Calculated 284 mOsm/kg (285-295); Phosphorus 3.6 mg/dL (2.5-4.5); Potassium 4.3 mmol/L (3.5-5.1); Sodium 136 mmol/L (136-145); Total Bilirubin 0.5 mg/dL (0.15-1.2); Total Protein 5.6 g/dL (6.6-8.7)
[2020-11-14] MEDS: aspirin 81 mg EC Tablet PO (09:25)
[2020-11-14] MEDS: losartan 50 mg Tablet 12.5 MG PO (09:25)
[2020-11-14] MEDS: b-complex-vitamin c Tablet 1 EACH PO (09:25)
[2020-11-14] MEDS: levothyroxine 137 mcg Tablet PO (09:25)
[2020-11-14] MEDS: nystatin powder 15 gm Btl 1 APPLIC TOPICAL (09:26)
--- NOTE | 2020-11-14 11:56 | P.PN_ITS ---
Subjective Subjective: Interval history: No new issues today. Dialysis went well yesterday, tolerating ultrafiltration. She has stable hemodynamics, no uremic sx. No chest pain, palpitations Pending SNF placement and outpatient dialysis set up Medications: Reviewed: Yes Medication Review Details: Current Medications Acetaminophen (Acetaminophen 325 Mg Tablet) 650 mg PO Q6H PRN PRN Reason: Mild/Mod Pain Or Temp >/= 101 Last Admin: 11/12/20 10:21 Dose: 650 mg Documented by: Albuterol Sulfate (Albuterol 8 Gm Mdi) 2 puff INHALATION Q4H PRN PRN Reason: Shortness Of Breath Aspirin (Aspirin 81 Mg Ec Tablet) 81 mg PO DAILY [facility] Last Admin: 11/13/20 10:18 Dose: Not Given Documented by: Calcium Acetate (Calcium Acetate 667 Mg Capsule) 1,334 mg PO TIDWM [facility] Last Admin: 11/13/20 12:06 Dose: Not Given Documented by: Dextrose (Dextrose 50% Syringe 50 Ml) 25 ml IVP ONCE PRN; Protocol PRN Reason: hypoglycemia protocol Dextrose (Dextrose 50% Syringe 50 Ml) 50 ml IVP PRN PRN; Protocol PRN Reason: hypoglycemia protocol Fluticasone Propionate (Fluticasone Nasal [place] 16gm Btl) 1 spray INTRANASAL BID PRN PRN Reason: Allergy Symptoms Furosemide (Furosemide 10 Mg/Ml Sdv 4ml) 40 mg IVP Q12H [facility] Last Admin: 11/13/20 12:06 Dose: 40 mg Documented by: Glucagon (Glucagon 1 Mg/Ml Inj 1 Ml) 1 mg IM ONCE PRN; Protocol PRN Reason: Adult Acute Hypoglycemia Prot. Heparin Sodium (Beef Lung) (Heparin 5,000 Unit/Ml Inj 1 Ml) 5,000 unit SUBCUT Q12H [facility] Last Admin: 11/13/20 18:24 Dose: 5,000 unit Documented by: Dextrose (D5w) 500 mls @ 100 mls/hr IV ONCE PRN; Protocol PRN Reason: Adult Acute Hypoglycemia Prot Sodium Chloride (Sodium Chloride 0.9%) 1,000 mls @ 0 mls/hr IV .Q0M PRN PRN Reason: hypotension or symptomatic Albumin Human (Albumin) 12.5 gm in 50 mls @ 60 mls/hr IV PRN PRN PRN Reason: Hypotension and/or symptomatic Last Infusion: 11/12/20 11:35 Dose: Infused Documented by: Ceftriaxone Sodium 1,000 mg/ (Sodium Chloride) 50 mls @ 100 mls/hr IV Q24H [facility]; Protocol Last Infusion: 11/13/20 18:25 Dose: Infused Documented by: Insulin Aspart (Insulin Aspart 100 Unit/1 Ml) 0 unit SUBCUT WM&BEDTIME [facility]; Protocol Last Admin: 11/13/20 12:06 Dose: Not Given Documented by: Insulin Glargine (Insulin Glargine 100 Units/1 Ml) 20 unit SUBCUT BEDTIME [facility] Last Admin: 11/12/20 20:35 Dose: Not Given Documented by: Levothyroxine Sodium (Levothyroxine 137 Mcg Tablet) 137 mcg PO DAILY [facility] Last Admin: 11/13/20 10:20 Dose: Not Given Documented by: Losartan Potassium (Losartan 50 Mg Tablet) 12.5 mg PO DAILY [facility] Last Admin: 11/13/20 10:20 Dose: Not Given Documented by: Multivitamins (J-Qtpyrfo-Clsjgye C Tablet) 1 each PO DAILY [facility] Last Admin: 11/13/20 10:20 Dose: Not Given Documented by: Non-Formulary Medication (Lactobacillus Rhamnosus Gg [Culturelle]) 1 cap PO DAILY PRN PRN Reason: unknown Non-Formulary Medication (Thyroid Complex) 1 tab PO DAILY [facility] Last Admin: 11/13/20 10:46 Dose: Not Given Documented by: Nystatin (Nystatin Powder 15 Gm Btl) 1 applic TOPICAL BID [facility] Last Admin: 11/13/20 18:16 Dose: Not Given Documented by: Ondansetron HCl (Ondansetron 2 Mg/Ml Sdv 2 Ml) 4 mg IVP Q8H PRN PRN Reason: vomiting, or N/V if npo Last Admin: 11/11/20 03:00 Dose: 4 mg Documented by: Senna (Sennosides 8.6 Mg Tablet) 17.2 mg PO BEDTIME [facility] Last Admin: 11/12/20 20:36 Dose: Not Given Documented by: Vitals/I&O/Wt Last Vital Signs Temp 97.8 F 11/14/20 04:00 Pulse 74 11/14/20 08:00 Resp 17 11/14/20 08:00 BP 129/60 11/14/20 09:25 Pulse Ox 93 11/14/20 08:00 11/13/20 11/14/20 11/14/20 22:59 06:59 14:59 Intake Total 110 / 470 110 / 110 Output Total 300 / 301 875 / 875 Balance 109 / 469 -300 / 169 -765 / -765 Weight last 48 hrs Weight 84.776 kg Weight 86.1 kg Weight 91.127 kg Weight 91.3 kg Physical Exam Narrative: EXAM NARRATIVE: Constitutional: Awake, comfortable HEENT: Wet mucosa, no jvp, non icteric Lungs: Bilaterally clear without discernible wheeze, rales in all lung zones CVS: S1 S2, esm Abdo: Soft, BS ok Ext 4: Minimal edema, peripheral perfusion with no cyanosis Neurological: Grossly non-focal Urinary Catheter Management^: Wright: Cath Placed During This Visit: yes, but has since been removed by the nurse Reason for Continuing Indwelling Catheter: Accurate Measurement of Urinary Output in Critically Ill Patients Urinary Catheter Date of Insertion: 11/10/20 Urinary Catheter Time of Insertion: 19:30 Date Urinary Catheter Removed: 11/13/20 Time Urinary Catheter Discontinued: 14:16 Data : 11/14/20 05:40 11/14/20 08:13 Micro: Microbiology 11/11/20 12:25 Urine Culture - Final Urine,Clean Catch Klebsiella oxytoca A&P Additional A&P Information 1. New ESRD Recent progression to end-stage renal disease, now initiated on hemodialysis. Will plan on dialysis 3K, UF 2-3L for next session on Case management to organize outpatient hemodialysis spot in Dr. Green's clinic. 2. CHF/ Input from Dr. Grimes is noted. Possible intervention down the road, will follow the story closely. 3. Hemodynamics Currently stable, close monitoring on dialysis given 4. Anemia of end-stage renal disease Hemoglobin 9.3, will continue to monitor closely during hospitalization. If it drops much more we will dose EPO and check iron parameters. 5. Disposition Prep for senior care facility noted. Aakash Gutierrez MD Nephrology [phone] Patient seen and examined via telemedicine, with the assistance of the bedside RN > 25 min spent in evaluation and mgmt of patient Attestations Medical Necessity Statement*: Eval for ESRD mgmt Coding Level of Care Code Acute [employer] Solution Architect for Chg Dennise
[2020-11-14 12:01] LABS: Glucose Point of Care 130 mg/dL (70-110)
[2020-11-14] MEDS: cefTRIAXone 1,000 MG in sodium chloride 0.9% (plus) 50 ML 100 MG IV (12:59)
[2020-11-14] MEDS: calcium acetate 667 mg Capsule 1334 MG PO (12:59)
--- NOTE | 2020-11-14 15:02 | PM.PN ---
Subjective Subjective: Interval history: Patient seems to be more alert today. Denies any chest pain or chest tightness. No unusual shortness of breath. No fever or chills. Vital signs remained stable. Medications: Reviewed: Yes Medication Review Details: Current Medications Acetaminophen (Acetaminophen 325 Mg Tablet) 650 mg PO Q6H PRN PRN Reason: Mild/Mod Pain Or Temp >/= 101 Last Admin: 11/12/20 10:21 Dose: 650 mg Documented by: Albuterol Sulfate (Albuterol 8 Gm Mdi) 2 puff INHALATION Q4H PRN PRN Reason: Shortness Of Breath Aspirin (Aspirin 81 Mg Ec Tablet) 81 mg PO DAILY [facility] Last Admin: 11/14/20 09:25 Dose: 81 mg Documented by: Calcium Acetate (Calcium Acetate 667 Mg Capsule) 1,334 mg PO TIDWM [facility] Last Admin: 11/14/20 12:59 Dose: 1,334 mg Documented by: Dextrose (Dextrose 50% Syringe 50 Ml) 25 ml IVP ONCE PRN; Protocol PRN Reason: hypoglycemia protocol Dextrose (Dextrose 50% Syringe 50 Ml) 50 ml IVP PRN PRN; Protocol PRN Reason: hypoglycemia protocol Fluticasone Propionate (Fluticasone Nasal [place] 16gm Btl) 1 spray INTRANASAL BID PRN PRN Reason: Allergy Symptoms Furosemide (Furosemide 10 Mg/Ml Sdv 4ml) 40 mg IVP Q12H [facility] Last Admin: 11/14/20 13:01 Dose: 40 mg Documented by: Glucagon (Glucagon 1 Mg/Ml Inj 1 Ml) 1 mg IM ONCE PRN; Protocol PRN Reason: Adult Acute Hypoglycemia Prot. Heparin Sodium (Beef Lung) (Heparin 5,000 Unit/Ml Inj 1 Ml) 5,000 unit SUBCUT Q12H [facility] Last Admin: 11/14/20 05:47 Dose: 5,000 unit Documented by: Dextrose (D5w) 500 mls @ 100 mls/hr IV ONCE PRN; Protocol PRN Reason: Adult Acute Hypoglycemia Prot Sodium Chloride (Sodium Chloride 0.9%) 1,000 mls @ 0 mls/hr IV .Q0M PRN PRN Reason: hypotension or symptomatic Albumin Human (Albumin) 12.5 gm in 50 mls @ 60 mls/hr IV PRN PRN PRN Reason: Hypotension and/or symptomatic Last Infusion: 11/12/20 11:35 Dose: Infused Documented by: Ceftriaxone Sodium 1,000 mg/ (Sodium Chloride) 50 mls @ 100 mls/hr IV Q24H [facility]; Protocol Last Infusion: 11/14/20 14:03 Dose: Infused Documented by: Insulin Aspart (Insulin Aspart 100 Unit/1 Ml) 0 unit SUBCUT WM&BEDTIME ALICIA; Protocol Last Admin: 11/14/20 13:00 Dose: Not Given Documented by: Insulin Glargine (Insulin Glargine 100 Units/1 Ml) 20 unit SUBCUT BEDTIME [facility] Last Admin: 11/13/20 20:39 Dose: Not Given Documented by: Levothyroxine Sodium (Levothyroxine 137 Mcg Tablet) 137 mcg PO DAILY [facility] Last Admin: 11/14/20 09:25 Dose: 137 mcg Documented by: Losartan Potassium (Losartan 50 Mg Tablet) 12.5 mg PO DAILY [facility] Last Admin: 11/14/20 09:25 Dose: 12.5 mg Documented by: Multivitamins (D-Isgaayb-Xzpmfci C Tablet) 1 each PO DAILY [facility] Last Admin: 11/14/20 09:25 Dose: 1 each Documented by: Non-Formulary Medication (Lactobacillus Rhamnosus Gg [Culturelle]) 1 cap PO DAILY PRN PRN Reason: unknown Non-Formulary Medication (Thyroid Complex) 1 tab PO DAILY [facility] Last Admin: 11/14/20 09:04 Dose: Not Given Documented by: Nystatin (Nystatin Powder 15 Gm Btl) 1 applic TOPICAL BID [facility] Last Admin: 11/14/20 09:26 Dose: 1 applic Documented by: Ondansetron HCl (Ondansetron 2 Mg/Ml Sdv 2 Ml) 4 mg IVP Q8H PRN PRN Reason: vomiting, or N/V if npo Last Admin: 11/11/20 03:00 Dose: 4 mg Documented by: Senna (Sennosides 8.6 Mg Tablet) 17.2 mg PO BEDTIME [facility] Last Admin: 11/13/20 20:40 Dose: Not Given Documented by: Vitals/I&O/Wt Last Vital Signs Temp 98 F 11/14/20 13:16 Pulse 77 11/14/20 13:16 Resp 16 11/14/20 09:00 BP 144/59 11/14/20 13:16 Pulse Ox 95 11/14/20 13:48 06/11/14/20 11/14/20 06:59 14:59 22:59 Intake Total 520 / 520 Output Total 300 / 301 875 / 875 Balance -300 / 169 -355 / -355 Weight last 48 hrs Weight 186 lb 14.4 oz Weight 189 lb 13.088 oz Weight 200 lb 14.4 oz Physical Exam Narrative: EXAM NARRATIVE: GENERAL: The patient is drowsy but answers questions appropriately. HEENT: Moderate pallor. No icterus or lymphadenopathy. The pupils are symmetrical oral cavity: There are no mucous membrane lesions. NECK: Trachea appears to be central. No masses noted. No JVD or thyromegaly appreciated. No carotid bruit. RESPIRATORY: Chest is symmetrical. No intercostals muscle retraction or any accessory muscle activation. There is no chest wall tenderness. Breath sounds are heard bilaterally. No rales or rhonchi heard. The intensity of the breath sounds are diminished in the bases. BREASTS: Deferred. HEART: The PMI could not be palpated. No palpable precordial events. S1 and S2 are normal. No S3 or S4 heard. No pericardial rub or any click heard. Ejection systolic murmur grade 3/6 in the aortic area. No diastolic murmurs. ABDOMEN: No vessel pulsations or distention. No tenderness. No organomegaly appreciated. No abdominal bruit. Bowel sounds are normally heard. : Deferred. RECTAL: Deferred. LYMPHATIC: No lymphadenopathy noted in the neck or groin. EXTREMITIES: 1+ edema both lower extremities. No cyanosis. Peripheral pulses are weak bilaterally. MUSCULOSKELETAL: No acute joint deformities or swelling. SKIN: There are no significant scars or skin rash noted. NEUROPSYCHIATRIC: The patient is drowsy but answers questions appropriately. No focal motor deficits. Urinary Catheter Management^: Wright: Cath Placed During This Visit: yes, but has since been removed by the nurse Reason for Continuing Indwelling Catheter: Accurate Measurement of Urinary Output in Critically Ill Patients Urinary Catheter Date of Insertion: 11/10/20 Urinary Catheter Time of Insertion: 19:30 Date Urinary Catheter Removed: 11/13/20 Time Urinary Catheter Discontinued: 14:16 Data : 11/14/20 05:40 11/14/20 08:13 Other Labs: Laboratory Last Values WBC 13.7 10^3/uL (4.0-10.0) H 11/14/20 05:40 Corrected WBC Cancelled 11/12/20 02:46 RBC 3.32 10^6/uL (4.1-5.3) L 11/14/20 05:40 Hgb 10.5 g/dL (11.5-15.3) L 11/14/20 05:40 Hct 35.0 % (37.0-47.0) L 11/14/20 05:40 MCV 105.4 fL (81-99) H 11/14/20 05:40 MCH 31.6 pg (28.0-34.0) 11/14/20 05:40 MCHC 30.0 g/dL (30.0-36.0) 11/14/20 05:40 RDW 16.3 % (12.1-15.1) H 11/14/20 05:40 Plt Count 135 10^3/cmm (130-400) 11/14/20 05:40 MPV 11.6 fL (7.4-10.4) H 11/14/20 05:40 Gran % Cancelled 11/12/20 02:46 Neut % (Auto) 77.1 % 11/14/20 05:40 Lymph % (Auto) 11.3 % 11/14/20 05:40 [place] % (Auto) 8.9 % 11/14/20 05:40 Eos % (Auto) 1.8 % 11/14/20 05:40 Baso % (Auto) 0.1 % 11/14/20 05:40 Neut # (Auto) 10.55 10^3/uL (1.8-7.7) H 11/14/20 05:40 Lymph # (Auto) 1.5 10^3/uL (0.8-4.8) 11/14/20 05:40 [place] # (Auto) 1.2 10^3/uL (0.2-0.9) H 11/14/20 05:40 Eos # (Auto) 0.2 10^3/uL (0.0-0.8) 11/14/20 05:40 Baso # (Auto) 0.0 10^3/uL (0.0-0.1) 11/14/20 05:40 Absolute Gran (auto) Cancelled 11/12/20 02:46 Nucleated RBC % (auto) 0 % 11/14/20 05:40 Nucleated RBCs # 0.0 /100WBC 11/14/20 05:40 PT 15.70 SECONDS (12.1-14.9) H 11/08/20 13:15 INR 1.21 (0.8-1.2) H 11/08/20 13:15 Sodium 136 mmol/L (136-145) 11/14/20 08:13 Potassium 4.3 mmol/L (3.5-5.1) 11/14/20 08:13 Chloride 99 mmol/L (98-107) 11/14/20 08:13 Carbon Dioxide 24 mmol/L (22-29) 11/14/20 08:13 Anion Gap 17.3 (5-19) 11/14/20 08:13 BUN 17 mg/dL (8-23) 11/14/20 08:13 Creatinine 2.2 mg/dL (0.5-0.9) H 11/14/20 08:13 GFR Calculation Not Reportable 11/14/20 08:13 Glucose 108 mg/dL (65-115) 11/14/20 08:13 POC Glucose 130 mg/dL (70-110) H 11/14/20 11:37 Calculated Osmolality 284 mOsm/kg (285-295) L 11/14/20 08:13 Lactate 0.8 mmol/L (0.5-2.2) 11/08/20 13:15 Calcium 7.8 mg/dL (8.5-10.5) L 11/14/20 08:13 Phosphorus 3.6 mg/dL (2.5-4.5) 11/14/20 08:13 Magnesium 1.9 mg/dL (1.7-2.3) 11/14/20 08:13 Iron 43 ug/dL (37-145) 11/09/20 04:43 TIBC 218 mcg/dl 11/08/20 18:57 % Saturation 20.1 % (20-50) 11/08/20 18:57 Unsat Iron Binding 174 ug/dL (112-347) 11/08/20 18:57 Ferritin 372 ng/mL (15-150) H 11/09/20 04:43 Total Bilirubin 0.5 mg/dL (0.15-1.2) 11/14/20 08:13 AST 37 U/L (0-32) H 11/14/20 08:13 ALT 15 U/L (0-33) 11/14/20 08:13 Alkaline Phosphatase 82 IU/L (35-105) 11/14/20 08:13 Troponin T Baseline 437 ng/L (0-10) H* 11/08/20 13:15 Troponin T 120 Minute 403.5 ng/L (0-10) H 11/08/20 15:10 Delta Troponin T -33.5 ABS# (0-10) L 11/08/20 15:10 Troponin T Hi Sens 6Hr 399.4 ng/L (0-10) H 11/08/20 18:57 Troponin T Hi Sens 6Hr Delta -37.6 ng/L (0-12) L 11/08/20 18:57 NT-Pro-B Natriuret Pep > 7000 pg/mL (0-450) H 11/08/20 13:15 Total Protein 5.6 g/dL (6.6-8.7) L 11/14/20 08:13 Albumin 2.7 g/dL (3.5-5.2) L 11/14/20 08:13 Globulin 2.9 g/dL (1.3-4.6) 11/14/20 08:13 Triglycerides 98 mg/dL (0-150) 11/11/20 02:47 Cholesterol 146 mg/dL (0-200) 11/11/20 02:47 LDL Cholesterol, Calc 88 mg/dL (50-129) 11/11/20 02:47 HDL Cholesterol 38 mg/dL (60-100) L 11/11/20 02:47 LDL/HDL Ratio 2.32 RATIO (0.00-3.22) 11/11/20 02:47 Cholesterol/HDL Ratio 3.84 mg/dL (0.0-4.40) 11/11/20 02:47 TSH 11.55 uIU/mL (0.27-4.20) H 11/09/20 04:43 PTH Intact 676.1 pg/mL (15-65) H 11/09/20 04:43 Calcium (PTH Intact) 7.3 mg/dL (8.5-10.5) L 11/09/20 04:43 Urine Color Yellow (Yellow) 11/11/20 12:25 Urine Appearance Cloudy (CLEAR) 11/11/20 12:25 Urine pH 5 (5-7) 11/11/20 12:25 Ur Specific [place] 1.010 (1.005-1.030) 11/11/20 12:25 Urine Protein 1+ (Negative) H 11/11/20 12:25 Urine Glucose (UA) Norm (Normal) 11/11/20 12:25 Urine Ketones Negative (Negative) 11/11/20 12:25 Urine Blood Neg (Negative) 11/11/20 12:25 Urine Nitrate Negative (Negative) 11/11/20 12:25 Urine Bilirubin Neg (Negative) 11/11/20 12:25 Urine Urobilinogen Norm mg/dL (Negative) 11/11/20 12:25 Ur Leukocyte Esterase 2+ (Negative) H 11/11/20 12:25 Urine RBC None /hpf (0-2) 11/11/20 12:25 Urine WBC 40-55 /hpf (0-5) H 11/11/20 12:25 Ur Squamous Epith Cells 0-4 /hpf (0-5) H 11/11/20 12:25 Amorphous Sediment Not Reportable 11/11/20 12:25 Urine Bacteria 3+ /hpf (NONE) H 11/11/20 12:25 Urine Mucus 1+ /hpf 11/11/20 12:25 Hep Bs Antigen Non-reactive (Nonreactive) 11/09/20 04:43 Hep Bs Antibody 3.5 (11.5-1000) L 11/09/20 04:43 Hepatitis C Antibody Non-reactive (Nonreactive) 11/09/20 04:43 SARS-CoV-2 Ag (Rapid) Negative (Negative) 11/13/20 13:45 Micro: Microbiology 11/11/20 12:25 Urine Culture - Final Urine,Clean Catch Klebsiella oxytoca A&P Assessment and plan (1) Aortic valve stenosis, nonrheumatic: Patient seems to have possibly severe low gradient aortic valve stenosis. Apparently she she had no significant gradient across the aortic valve in 2016. At this point I am not convinced that she has severe aortic valve stenosis. But because of the chronic kidney disease, she could have an accelerated degenerative process on the aortic valve causing the stenosis. This needs to be further evaluated. Hemodynamically she seems to be stable. We may consider doing a dobutamine stress echo to rule out any pseudostenosis. I discussed with the patient's daughter, Sofiya about the need for further work-up. Family currently has decided to go for the test. This may be scheduled as an outpatient. Status: Acute (2) Acute exacerbation of CHF (congestive heart failure): Most likely this is from the worsening kidney function. Possibility of underlying coronary ischemia causing this cannot be excluded. Her troponin T was elevated at the baseline but the delta at 2 hours and 6 hours were negative. In view of her history of coronary heart disease and coronary bypass surgery, possibility of underlying coronary ischemia causing this cannot be excluded. This needs to be further evaluated. Patient has no specific symptoms of coronary insufficiency otherwise. Status: Acute Qualifiers: Heart failure type: combined systolic and diastolic Qualified Code(s): I50.43 - Acute on chronic combined systolic (congestive) and diastolic (congestive) heart failure (3) Chronic kidney disease, stage 5, kidney failure: Patient is currently on hemodialysis. The BUN/creatinine seems to be coming down. Status: Acute (4) Atherosclerosis of coronary artery of [place] heart without angina pectoris: Patient had three-vessel coronary bypass surgery in 2016. She has not had any functional evaluation since then. She may require a repeat cardiac catheterization to evaluate the coronary arteries as well as the grafts, to decide on further management. Status: Acute Qualifiers: Coronary Disease-Associated Artery/Lesion type: [place] artery Qualified Code(s): I25.10 - Atherosclerotic heart disease of [place] coronary artery without angina pectoris Additional A&P Information Her other problems are Type 2 diabetes Chronic anemia Essential benign hypertension Dyslipidemia History of CVA Hyper hypothyroid state Hyperparathyroid? If the patient continues to remain stable, may be discharged home from a cardiac standpoint. Schedule the patient for the dobutamine stress echo as an outpatient Attestations Medical Necessity Statement*: Deferred to the primary Coding Level of Care Code Acute Mortgage Protection Specialist for g Fwd Diagnoses Aortic valve stenosis, nonrheumatic I35.0 Acute exacerbation of CHF (congestive heart failure) I50.43 Heart failure type: combined systolic and diastolic Chronic kidney disease, stage 5, kidney failure N18.5 Atherosclerosis of coronary artery of [place] heart without angina pectoris I25.10 Coronary Disease-Associated Artery/Lesion type: [place] artery
--- NOTE | 2020-11-14 16:13 | PC.NURSE ---
report called to harvinder schumacher
--- NOTE | 2020-11-14 22:46 | PM.DCS ---
Discharge Providers Date of Admission: 11/08/20 17:24 Date of Discharge: November 14, 2020 Attending Provider at Admission: Sergey Shelton MD Attending Provider at Discharge: Sadia Trotter MD Primary Care Provider: Kash Munoz DO Diagnoses at Discharge Discharge Diagnosis (1) Aortic valve stenosis, nonrheumatic: Status: Acute (2) Acute exacerbation of CHF (congestive heart failure): Status: Acute Qualifiers: Heart failure type: combined systolic and diastolic Qualified Code(s): I50.43 - Acute on chronic combined systolic (congestive) and diastolic (congestive) heart failure (3) Chronic kidney disease, stage 5, kidney failure: Status: Acute (4) Atherosclerosis of coronary artery of [place] heart without angina pectoris: Status: Acute Qualifiers: Coronary Disease-Associated Artery/Lesion type: [place] artery Qualified Code(s): I25.10 - Atherosclerotic heart disease of [place] coronary artery without angina pectoris Reason for Visit Reason for Visit: SOB Hospital Course Hospital Course 85-year-old lady with history of CAD, CABG, CHF, EF 40-50% in 2016, CVA, DM 2, ESRD following with nephrology Dr. Green, previously with recommended hemodialysis although she had been reluctant to start, has been getting progressively more short of breath, had seen her primary provider last week and at the office found to have fluid overload, edema, lungs sounding wet and with rhonchi, was started on course of prednisone, albuterol inhaler, Lasix 20mg, she reports subsequently on and off urine output, sometimes up to 3 times a day with the medication. In ER she is noted fluid overloaded, with creatinine 5.9, hyperkalemia 5.9, metabolic acidosis, anion gap 23.9, bicarb 12. Incidentally noted NT proBNP more than 7000, troponin IV 137 of of unclear significance in the setting of renal dysfunction. She denies any chest pain or pressure. She has been short of breath. Has anasarca with swelling in lower extremities up to thighs. Hospital course as follows: (1) Dyspnea: Overall with improvement with removal of fluid with dialysis. cardiology consultation obatined with regards to aortic stenosis, troponin elevation in setting of CAD/history of CABG. there were extensive discussion with her and her family regarding further w/up for , including need for dobutamine stress echo, angiogram and then possible referral for TAVR- she will follow up as outpatient with cardiology next week. Bibasilar opacification thought to be secondary to fluid overload, CHF, so far no signs of sepsis/pneumonia Encouraged patient to participate with physical therapy as she is at very severe risk of deconditioning. (2) Acute exacerbation of CHF (congestive heart failure): Acute systolic congestive heart failure exacerbation with anasarca Initiated on HD, refractory to diuretics EF appears possibly unchanged, 40-50% as per echo in 2016. Currently noted grade 3 diastolic dysfunction. Appears to have new possibly severe aortic stenosis. Appreciate cardiology consultation. Noted troponin elevation, although no chest pain, suspect this is related to demand ischemia in the setting of progressive renal failure. (3) Chronic kidney disease, stage 5, kidney failure: S/p tunneled HD catheter 11/08. Initiated dialysis morning 11/09. Tolerated well. Patient being transitioned to [facility] and outpatient HD has been set up. (4) Acute hyperkalemia: Improved with treatment. Now on HD (5) Elevated troponin: As above. Aspirin. Statin benefit unclear with ESRD on hemodialysis. Beta-lori held due to slow heart rates. (6) Hypothyroidism: TSH 11.55. Increased levothyroxine dose to 137. Follow-up thyroid function outpatient. Patient discharged in currently stable condition, best optimized for now Physical Exam Urinary Catheter Management^: Wright: Cath Placed During This Visit: yes, but has since been removed by the nurse Reason for Continuing Indwelling Catheter: Accurate Measurement of Urinary Output in Critically Ill Patients Urinary Catheter Date of Insertion: 11/10/20 Urinary Catheter Time of Insertion: 19:30 Date Urinary Catheter Removed: 11/13/20 Time Urinary Catheter Discontinued: 14:16 Discharge Data Data Completed and Pending: Completed Studies During Hospitalization Category Date Time Status XR chest 1V endy ble 64033 Routine Exams 11/11/20 06:00 Completed XR chest 1V endy ble 16069 Urgent Exams 11/08/20 12:57 Completed CV echo complete* [id number] Routine Ultrasound 11/09/20 07:00 Completed Vitals: Last Vital Signs Temp 98 F 11/14/20 13:16 Pulse 77 11/14/20 13:16 Resp 16 11/14/20 09:00 BP 144/59 11/14/20 13:16 Pulse Ox 95 11/14/20 13:48 Discharge Plan Discharge Patient Disposition: er [facility] Condition: Fair Prescriptions: New calcium acetate [Calphron] 667 mg Tablet 1,334 mg PO TIDWM 30 Days Qty: 60 RF: 0 furosemide [Lasix] 80 mg tablet 80 mg PO BID 30 Days Qty: 60 RF: 0 Continued nystatin [Nystop] 100,000 unit/gram powder 1 applic topical TID PRN (Reason: UNKNOWN) RF: 0 albuterol sulfate 90 mcg/actuation HFA aerosol inhaler 2 puff INHALATION Q4H PRN (Reason: Shortness Of Breath) RF: 0 fluticasone propionate 50 mcg/actuation [place],Suspension 1 spray INTRANASAL BID PRN (Reason: Allergy Symptoms) RF: 0 Lantus Solostar U-100 Insulin 100 unit/mL (3 mL) insulin pen 20 unit SUBCUT BEDTIME RF: 0 Thyroid Complex 1 tab PO DAILY RF: 0 Discontinued carvedilol 6.25 mg tablet See Rx Instructions .ROUTE .COMPLEX RF: 0 sodium bicarbonate 325 mg tablet 325 mg PO BID RF: 0 acetaminophen [Tylenol Extra Strength] 500 mg Tablet 1,000 mg PO Q6H PRN (Reason: Pain) RF: 0 levothyroxine 125 mcg tablet 125 mcg PO DAILY RF: 0 furosemide 20 mg tablet 20 mg PO QAM RF: 0 ergocalciferol (vitamin D2) 1,250 mcg (50,000 unit) Capsule 50,000 unit PO Q7D RF: 0 No Action Dulcolax (bisacodyl) 10 mg Suppository 10 mg NC DAILY PRN (Reason: Constipation) RF: 0 losartan 25 mg Tablet 12.5 mg PO DAILY@08 RF: 0 Tylenol 325 mg Tablet 650 mg PO QID PRN (Reason: Pain) RF: 0 levothyroxine 137 mcg tablet 137 mcg PO DAILY@05 RF: 0 aspirin 81 mg tablet,delayed release (DR/EC) 81 mg PO DAILY@08 RF: 0 B-complex with vitamin C Tablet 1 tab PO DAILY@08 RF: 0 Discharge Orders: Discharge Order (Routine); Ordered 11/14/20 Ordered By: Sadia Trotter Referrals: Demar Grimes MD [Physician] - 1 week (schedule dobutamine stress test and angiogram ) Kash Munoz DO [Primary Care Provider] - Discharge Diet: As Directed Discharge Activity: As per PT/OT instructions Patient Instructions: Cefuroxime (By mouth), Furosemide (By mouth), Losartan (By mouth), Hemodialysis, Heart Failure (DC), Aortic Stenosis (DC), Dialysis Diet (DC), CHF Stoplight Discharge Attestations Time Spent in Discharge Care*: greater than 30 min Quality Metrics Clinical Quality Measures During this hospital stay, did patient experience: None Coding Level of Care Code Acute Chg FW DC note Diagnoses Aortic valve stenosis, nonrheumatic I35.0 Acute exacerbation of CHF (congestive heart failure) I50.43 Heart failure type: combined systolic and diastolic Chronic kidney disease, stage 5, kidney failure N18.5 Atherosclerosis of coronary artery of [place] heart without angina pectoris I25.10 Coronary Disease-Associated Artery/Lesion type: [place] artery
== END 2020-11-14 17:00 | disposition skilled nursing facility (03) | DRG 291 ==
LOC: ER 15:00 → OR 15:31 → ICU 17:26 → CSU 11-09 11:21
PROVIDERS: Internal Medicine; Internal Medicine Cardiovascular Disease; Internal Medicine Nephrology; Admitting Provider Surgery; Emergency Provider Family Medicine; PCP Electrodiagnostic Medicine; Visit Provider Student in an Organized Health Care Education/Training Program
PROC: 0JH63XZ Insertion of Tunneled Vascular Access Device into Chest Subcutaneous Tissue and Fascia, Percutaneous Approach (ICD-10-PCS; principal; 2020-11-08 16:00)
DX: I13.2 Hypertensive heart and chronic kidney disease with heart failure and with stage 5 chronic kidney disease, or end stage renal disease (principal); I50.43 Acute on chronic combined systolic (congestive) and diastolic (congestive) heart failure; N18.6 End stage renal disease; E87.2 Acidosis; I24.8 Other forms of acute ischemic heart disease; E11.22 Type 2 diabetes mellitus with diabetic chronic kidney disease; I25.10 Atherosclerotic heart disease of native coronary artery without angina pectoris; Z95.1 Presence of aortocoronary bypass graft; Z86.73 Personal history of transient ischemic attack (TIA), and cerebral infarction without residual deficits; E87.5 Hyperkalemia; Z66 Do not resuscitate; E03.9 Hypothyroidism, unspecified; B37.2 Candidiasis of skin and nail; D63.1 Anemia in chronic kidney disease; I35.0 Nonrheumatic aortic (valve) stenosis; I42.9 Cardiomyopathy, unspecified; Z79.4 Long term (current) use of insulin
CPT/HCPCS: 36415; 36416; 51702; 51798; 71045; 77001; 80048; 80053; 80061; 81001; 82310; 82728; 82962; 83540; 83550; 83605; 83735; 83880; 83970; 84100; 84443; 84484; 85025; 85610; 86706; 86803; 87077; 87086; 87186; 87340; 87426; 90935; 92610; 93005; 93306; 94664; 96365; 96372; 97110; 97162; 97167; 97530; 97535; 99285; C1750; J0696; J1644; J1815 ×2; J1940; J2405; J3010; J3370; J3490; J7050; P9047; Q3014; Q4081

== ENCOUNTER 2020-11-18 18:24 | Outpatient (CLI) | payer MEDICARE, SELFPAY ==
[2020-11-18 19:10] LABS: Basophils % 0.4 %; Eosinophils # 0.3 10^3/uL (0.0-0.8); Eosinophils % 3.2 %; Hematocrit 34.2 % (37.0-47.0); Hemoglobin 10.3 g/dL (11.5-15.3); Lymphocytes # 1.6 10^3/uL (0.8-4.8); Lymphocytes % 15.8 %; Mean Corpuscular HGB Conc 30.1 g/dL (30.0-36.0); Mean Corpuscular Hemoglobin 31.8 pg (28.0-34.0); Mean Corpuscular Volume 105.6 fL (81-99); Mean Platelet Volume 10.4 fL (7.4-10.4); Monocytes # 1.2 10^3/uL (0.2-0.9); Monocytes % 11.1 %; Neutrophils # 7.16 10^3/uL (1.8-7.7); Neutrophils % 68.9 %; Nucleated Red Blood Cells % 0 %; Platelet Count 132 10^3/cmm (130-400); Red Blood Count 3.24 10^6/uL (4.1-5.3); Red Cell Distribution Width 14.9 % (12.1-15.1); White Blood Count 10.4 10^3/uL (4.0-10.0)
== END 2020-11-18 18:25 | disposition home or self-care (01) ==
LOC: LAB 18:26
PROVIDERS: PCP Electrodiagnostic Medicine; Visit Provider Internal Medicine
DX: N18.6 End stage renal disease (principal)
CPT/HCPCS: 85025

== ENCOUNTER 2020-11-20 05:29 | Inpatient (IN) | payer MEDICARE, OTHER, SELFPAY ==
[2020-11-20] VITALS (67 sets, daily range): BP systolic 68–150; BP diastolic 36–110; PULSE 75–104; RESP 4–27; TEMP 34.4–36.6; O2SAT 89–100; BMI 36.3
--- NOTE | 2020-11-20 05:32 | ED_ITS ---
Documented by User: Zachary Quintero MD 11/20/20 05:34 HPI - Nausea/Vomiting/Diarrhea General: Chief complaint: GI Bleed Stated complaint: vomiting blood Time Seen by Provider: 11/20/20 05:32 Source: patient and EMS Mode of arrival: EMS Limitations: no limitations History of Present Illness: HPI Narrative: 85-year-old female who is here from local skilled nursing. She is recently started on dialysis to receive dialysis yesterday and states she has been having nausea since then. Started having vomiting and per EMS skilled nursing states that she had a coffee-ground emesis at 430. They cleaned it up by the time they got there and she has not vomited further. Denies any diarrhea. States she has had some abdominal discomfort. She denies any fevers. Denies any worsening improving factors. Associated nausea: Yes Associated symtoms: Reports nausea; Denies chest pain, dysuria or headache(s) Review of Systems Const: Denies: fever(s), chills, body aches or change in appetite Eyes: Denies: blurry vision or eye discomfort ENMT: Denies: throat pain or dental pain Card: Denies: chest pain Resp: Denies: dyspnea GI: Reports: nausea and vomiting; Denies: abdominal pain or diarrhea : Denies: dysuria Musc: Denies: neck pain or back pain Skin/Breast: Denies: rash Neuro: Denies: headache(s) Psych: Denies: depression Haraln/Lymph: Denies: easy bruising All/Imm: Denies: urticaria PFSH ED PFSH: Medical History CAD (coronary artery disease) CHF (congestive heart failure) Chronic kidney disease, stage 5, kidney failure CVA (cerebral vascular accident) DM type 2 (diabetes mellitus, type 2) Hypothyroidism Surgical History H/O hernia repair H/O: hysterectomy Hx of CABG Hx of tonsillectomy Family History Brother Myocardial infarction Chronic kidney disease (CKD) Social History Smoking and tobacco status: never smoked Alcohol intake: never Lives independently: No Housing: Assisted Living Facility Marital status: / Physical Exam Const: COMMON NORMALS: no acute distress and patient oriented x3 GENERAL APPEARANCE: ill appearing HENMT: COMMON NORMALS: normocephalic and atraumatic HEAD & SCALP: normocephalic and atraumatic Eye: COMMON NORMALS: Equal, round and reactive pupils present and EOMs intact bilaterally PUPIL: Yes Equal, round and reactive pupils present Neck/C-Spine: COMMON NORMALS: full ROM and supple Chest: COMMONS NORMALS: normal inspection of the chest and normal palpation of entire chest wall Resp: COMMON NORMALS: normal respiratory effort, No retractions, No use of accessory muscles and clear to auscultation bilaterally AUSCULTATION: clear to auscultation bilaterally Cardio: COMMON NORMALS: regular rate, regular rhythm and No murmurs present (Cardio) RATE: regular rate RHYTHM: regular rhythm GI: COMMON NORMALS: Normal to inspection, nondistended, normoactive bowel sounds present, Soft to palpation, non-tender and no masses PALPATION: Yes Soft to palpation Extremity: COMMON NORMALS: normal to inspection and full ROM Neuro: COMMON NORMALS: patient oriented x3, moves all extremities and no focal motor deficits Psych: COMMON NORMALS: mental status grossly normal, Normal thought process pr esent and cooperative THOUGHT PROCESS: Normal thought process present Skin: COMMON NORMALS: no rashes or lesions noted and no wounds GENERAL SKIN EXAM: no rashes or lesions noted Course Vital Signs: Vital signs: Vital Signs Temperature 97.3 F L 11/20/20 05:31 Pulse Rate 97 11/20/20 06:45 Respiratory Rate 22 H 11/20/20 06:45 Blood Pressure 75/43 11/20/20 06:45 Pulse Oximetry 95 11/20/20 06:45 MDM - Nausea/Vomiting/Diarrhea Lab Data: Labs: Lab Results 11/20/20 11/20/20 11/20/20 Range/Units 05:30 05:30 05:30 WBC 4.2 (4.0-10.0) 10^3/ uL RBC 4.12 (4.1-5.3) 10^6/u L Hgb 12.8 (11.5-15.3) g/dL Hct 42.6 (37.0-47.0) % MCV 103.4 H (81-99) fL MCH 31.1 (28.0-34.0) pg MCHC 30.0 (30.0-36.0) g/dL RDW 14.6 (12.1-15.1) % Plt Count 156 (130-400) 10^3/c mm MPV 10.4 (7.4-10.4) fL Neut % (Auto) 69.8 % Lymph % (Auto) 15.5 % Crenshaw % (Auto) 13.3 % Eos % (Auto) 0.0 % Baso % (Auto) 1.2 % Neut # (Auto) 2.93 (1.8-7.7) 10^3/u L Lymph # (Auto) 0.7 L (0.8-4.8) 10^3/u L Crenshaw # (Auto) 0.6 (0.2-0.9) 10^3/u L Eos # (Auto) 0.0 (0.0-0.8) 10^3/u L Baso # (Auto) 0.1 (0.0-0.1) 10^3/u L Nucleated RBC % (a uto) 0 % Nucleated RBCs # 0.0 /100WBC PT 15.50 H (12.1-14.9) SECO NDS INR 1.20 (0.8-1.2) Sodium 137 (136-145) mmol/L Potassium 4.3 (3.5-5.1) mmol/L Chloride 93 L (98-107) mmol/L Carbon Dioxide 32 H (22-29) mmol/L Anion Gap 16.3 (5-19) BUN 20 (8-23) mg/dL Creatinine 2.9 H (0.5-0.9) mg/dL GFR Calculation Not Reportable Glucose 103 (65-115) mg/dL Calculated Osmolal ity 287 (285-295) mOsm/k g Lactate (0.5-2.2) mmol/L Calcium 10.1 (8.5-10.5) mg/dL Total Bilirubin 0.6 (0.15-1.2) mg/dL AST 36 H (0-32) U/L ALT 20 (0-33) U/L Alkaline Phosphata se 81 (35-105) IU/L Total Protein 5.7 L (6.6-8.7) g/dL Albumin 2.6 L (3.5-5.2) g/dL Globulin 3.1 (1.3-4.6) g/dL Lipase 162 H (13-60) U/L /11/05 Range/Units 07:15 WBC (4.0-10.0) 10^3/ uL RBC (4.1-5.3) 10^6/u L Hgb (11.5-15.3) g/dL Hct (37.0-47.0) % MCV (81-99) fL MCH (28.0-34.0) pg MCHC (30.0-36.0) g/dL RDW (12.1-15.1) % Plt Count (130-400) 10^3/c mm MPV (7.4-10.4) fL Neut % (Auto) % Lymph % (Auto) % Crenshaw % (Auto) % Eos % (Auto) % Baso % (Auto) % Neut # (Auto) (1.8-7.7) 10^3/u L Lymph # (Auto) (0.8-4.8) 10^3/u L Crenshaw # (Auto) (0.2-0.9) 10^3/u L Eos # (Auto) (0.0-0.8) 10^3/u L Baso # (Auto) (0.0-0.1) 10^3/u L Nucleated RBC % (a uto) % Nucleated RBCs # /100WBC PT (12.1-14.9) SECO NDS INR (0.8-1.2) Sodium (136-145) mmol/L Potassium (3.5-5.1) mmol/L Chloride (98-107) mmol/L Carbon Dioxide (22-29) mmol/L Anion Gap (5-19) BUN (8-23) mg/dL Creatinine (0.5-0.9) mg/dL GFR Calculation Glucose (65-115) mg/dL Calculated Osmolal ity (285-295) mOsm/k g Lactate 3.7 H (0.5-2.2) mmol/L Calcium (8.5-10.5) mg/dL Total Bilirubin (0.15-1.2) mg/dL AST (0-32) U/L ALT (0-33) U/L Alkaline Phosphata se (35-105) IU/L Total Protein (6.6-8.7) g/dL Albumin (3.5-5.2) g/dL Globulin (1.3-4.6) g/dL Lipase (13-60) U/L Discharge Plan Discharge Patient Disposition: Admitted As Inpatient Clinical Impression: Perforated small intestine, Gastrointestinal hemorrhage with hematemesis, Upper gastrointestinal hemorrhage Abdominal pain Qualifiers: Abdominal location: left upper quadrant Qualified Code(s): R10.12 - Left upper quadrant pain Chronic kidney disease (CKD) Qualifiers: Chronic kidney disease stage: on chronic dialysis Qualified Code(s): N18.6 - End stage renal disease Condition: Stable Coding Level of Care Code ED Stock Cutter for Chg Fwd Exam Comprehensive Documented by User: Fred Baptiste MD 11/20/20 07:56 HPI - Nausea/Vomiting/Diarrhea General: Chief complaint: GI Bleed Stated complaint: vomiting blood Time Seen by Provider: 11/20/20 05:32 [facility] ED PFSH: Medical History CAD (coronary artery disease) CHF (congestive heart failure) Chronic kidney disease, stage 5, kidney failure CVA (cerebral vascular accident) DM type 2 (diabetes mellitus, type 2) Hypothyroidism Surgical History H/O hernia repair H/O: hysterectomy Hx of CABG Hx of tonsillectomy Family History Brother Myocardial infarction Chronic kidney disease (CKD) Social History Smoking and tobacco status: never smoked Alcohol intake: never Lives independently: No Housing: Assisted Living Facility Marital status: / Physical Exam HENMT: OTHER: Trace amount of dried blood around the right hong. Chest: OTHER: Dialysis catheter in right chest. GI: COMMON NORMALS: No hepatosplenomegaly present, no masses and no bruits AUSCULTATION: Yes normoactive bowel sounds PALPATION: Yes Tenderness to palpation present (GI) (moderate) Details: LLQ and LUQ and Yes No hepatosplenomegaly present Course Vital Signs: Vital signs: Vital Signs Temperature 97.3 F L 11/20/20 05:31 Pulse Rate 97 11/20/20 06:45 Respiratory Rate 22 H 11/20/20 06:45 Blood Pressure 75/43 11/20/20 06:45 Pulse Oximetry 95 11/20/20 06:45 MDM - Nausea/Vomiting/Diarrhea MDM Narrative: Medical decision making narrative: 0555: assumed care from dr. quintero 0610: Patient states that she would accept blood transfusion if necessary. Discussed with Dr. Cohen general surgeon results of CT scan. He plans to take the patient surgery this morning. He asked that hospitalist admit the patient. I did discuss case with the hospitalist Dr. Rosario. Lab Data: Attestation: I reviewed the patient's lab results. Labs: Lab Results 11/20/20 11/20/20 11/20/20 Range/Units 05:30 05:30 05:30 WBC 4.2 (4.0-10.0) 10^3/ uL RBC 4.12 (4.1-5.3) 10^6/u L Hgb 12.8 (11.5-15.3) g/dL Hct 42.6 (37.0-47.0) % MCV 103.4 H (81-99) fL MCH 31.1 (28.0-34.0) pg MCHC 30.0 (30.0-36.0) g/dL RDW 14.6 (12.1-15.1) % Plt Count 156 (130-400) 10^3/c mm MPV 10.4 (7.4-10.4) fL Neut % (Auto) 69.8 % Lymph % (Auto) 15.5 % Crenshaw % (Auto) 13.3 % Eos % (Auto) 0.0 % Baso % (Auto) 1.2 % Neut # (Auto) 2.93 (1.8-7.7) 10^3/u L Lymph # (Auto) 0.7 L (0.8-4.8) 10^3/u L Crenshaw # (Auto) 0.6 (0.2-0.9) 10^3/u L Eos # (Auto) 0.0 (0.0-0.8) 10^3/u L Baso # (Auto) 0.1 (0.0-0.1) 10^3/u L Nucleated RBC % (a uto) 0 % Nucleated RBCs # 0.0 /100WBC PT 15.50 H (12.1-14.9) SECO NDS INR 1.20 (0.8-1.2) Sodium 137 (136-145) mmol/L Potassium 4.3 (3.5-5.1) mmol/L Chloride 93 L (98-107) mmol/L Carbon Dioxide 32 H (22-29) mmol/L Anion Gap 16.3 (5-19) BUN 20 (8-23) mg/dL Creatinine 2.9 H (0.5-0.9) mg/dL GFR Calculation Not Reportable Glucose 103 (65-115) mg/dL Calculated Osmolal ity 287 (285-295) mOsm/k g Lactate (0.5-2.2) mmol/L Calcium 10.1 (8.5-10.5) mg/dL Total Bilirubin 0.6 (0.15-1.2) mg/dL AST 36 H (0-32) U/L ALT 20 (0-33) U/L Alkaline Phosphata se 81 (35-105) IU/L Total Protein 5.7 L (6.6-8.7) g/dL Albumin 2.6 L (3.5-5.2) g/dL Globulin 3.1 (1.3-4.6) g/dL Lipase 162 H (13-60) U/L 11/20/20 Range/Units 07:15 WBC (4.0-10.0) 10^3/ uL RBC (4.1-5.3) 10^6/u L Hgb (11.5-15.3) g/dL Hct (37.0-47.0) % MCV (81-99) fL MCH (28.0-34.0) pg MCHC (30.0-36.0) g/dL RDW (12.1-15.1) % Plt Count (130-400) 10^3/c mm MPV (7.4-10.4) fL Neut % (Auto) % Lymph % (Auto) % Crenshaw % (Auto) % Eos % (Auto) % Baso % (Auto) % Neut # (Auto) (1.8-7.7) 10^3/u L Lymph # (Auto) (0.8-4.8) 10^3/u L Crenshaw # (Auto) (0.2-0.9) 10^3/u L Eos # (Auto) (0.0-0.8) 10^3/u L Baso # (Auto) (0.0-0.1) 10^3/u L Nucleated RBC % (a uto) % Nucleated RBCs # /100WBC PT (12.1-14.9) SECO NDS INR (0.8-1.2) Sodium (136-145) mmol/L Potassium (3.5-5.1) mmol/L Chloride (98-107) mmol/L Carbon Dioxide (22-29) mmol/L Anion Gap (5-19) BUN (8-23) mg/dL Creatinine (0.5-0.9) mg/dL GFR Calculation Glucose (65-115) mg/dL Calculated Osmolal ity (285-295) mOsm/k g Lactate 3.7 H (0.5-2.2) mmol/L Calcium (8.5-10.5) mg/dL Total Bilirubin (0.15-1.2) mg/dL AST (0-32) U/L ALT (0-33) U/L Alkaline Phosphata se (35-105) IU/L Total Protein (6.6-8.7) g/dL Albumin (3.5-5.2) g/dL Globulin (1.3-4.6) g/dL Lipase (13-60) U/L Imaging Data^: CT Abd/Pel: Radiologist's impression: Cindy Mena BUnit #: [id number]: [id number]#:[id number]/Sex: 85 / FADM Date: 11/20/20Loc: ERRoom/Bed:Attending Dr: Ordering Provider/Ordering MD: Fred Baptiste MD Date of Service: 11/20/20 Procedure(s): CT abdomen pelvis wo con [id number] Accession Number(s): [id number] Report Number: [id number] PROCEDURE INFORMATION: Exam: CT Abdomen And Pelvis Without Contrast Exam date and time: 11/20/2020 6:11 AM Age: 85 years old Clinical indication: Abdominal pain; Localized; Prior surgery; Surgery type: Cabg. Dialysis cath. Hysterectomy. Hernia repair. ; Patient HX: Left sided abd pain with hematoemesis. ; Additional info: Pain, luq/llq abd pain; Hematemesis; Dialysis PT; No contrast TECHNIQUE: Imaging protocol: Computed tomography of the abdomen and pelvis without contrast. Radiation optimization: All CT scans at this facility use at least one of these dose optimization techniques: automated exposure control; mA and/or kV adjustment per patient size (includes targeted exams where dose is matched to clinical indication); or iterative reconstruction. COMPARISON: US Renal Kidney Structu* [id number] 11/22/2015 2:57 PM RADIATION DOSE METRICS: Total DLP (mGy-cm): 1129.29 FINDINGS: Pleural spaces: Bilateral pleural effusions with compressive atelectasis and or other consolidation in the lower lobes. Liver: No mass. Gallbladder and bile ducts: No calcified stones. No ductal dilation. Pancreas: No ductal dilation. Spleen: No splenomegaly. Adrenal glands: Normal. No mass. Kidneys and ureters: No hydronephrosis. Stomach and bowel: There is a large right lateral lower abdominal wall ventral hernia containing slightly prominent fluid-filled loops of small bowel and portions of the colon. No significant dilation of the more proximal small bowel loops. There is severe colonic diverticulosis. No findings of diverticulitis. Appendix: The appendix is not identified. Intraperitoneal space: There is free intraperitoneal air. Cannot exclude small bowel obstruction with perforation or other viscus, as source of free air. There is free fluid in the abdomen. Vasculature: No abdominal aortic aneurysm. Lymph nodes: No enlarged lymph nodes. Urinary bladder: Unremarkable as visualized. Reproductive: Status post hysterectomy. Bones/joints: Degenerative changes of the lumbar spine. Soft tissues: Unremarkable. CT/CT abdomen pelvis wo con [id number] IMPRESSION: 1. There is free intraperitoneal air. There is a large right lateral lower abdominal wall ventral hernia containing slightly prominent fluid-filled loops of small bowel and portions of the colon. No significant dilation of the more proximal small bowel loops. Cannot exclude small bowel obstruction with perforation or other viscus, as source of free air. There is a small to moderate amount of free fluid in the abdomen. 2. Bilateral pleural effusions with compressive atelectasis and or other consolidation in the lower lobes. Radiation Dose CTDIVOL = (mGy): DLP = 1129.29 (mGy-cm) Dictated By:Gladys Chun MDSigned By:Gladys Chun MDSigned Date/Time:11/20/20 0725 Critical Care Time Critical Care Time: Critical Care Time: Yes Total Critical Care Time: 55 Attestation: See orders, fluids, IV antibiotics, treatment for hypotension, perforated small bowel, hematemesis. Case discussed with [id number]. Discharge Plan Discharge Patient Disposition: Admitted As Inpatient Clinical Impression: Perforated small intestine, Gastrointestinal hemorrhage with hematemesis, Upper gastrointestinal hemorrhage Abdominal pain Qualifiers: Abdominal location: left upper quadrant Qualified Code(s): R10.12 - Left upper quadrant pain Chronic kidney disease (CKD) Qualifiers: Chronic kidney disease stage: on chronic dialysis Qualified Code(s): N18.6 - End stage renal disease Condition: Stable Coding Level of Care Code ED Stock Cutter for Shilpa Fwd Exam Comprehensive
--- NOTE | 2020-11-20 05:34 | XRR_ITS ---
PROCEDURE INFORMATION: Exam: XR Chest Exam date and time: 11/20/2020 5:34 AM Age: 85 years old Clinical indication: Chest pressure; Prior surgery; Surgery type: Cabg. Dialysis catheter. ; Patient HX: Chest pain. ; Additional info: Cp TECHNIQUE: Imaging protocol: XR of the chest. Views: 1 view. COMPARISON: CR (CHEST, ) 11/11/2020 7:55 AM FINDINGS: Tubes, catheters and devices: Stable right-sided dialysis catheter. Lungs: Stable prominence of the pulmonary vascularity. Pleural spaces: Stable bilateral pleural effusions. Heart/Mediastinum: Stable mild cardiomegaly. Bones/joints: There has been a median sternotomy. XR/XR chest 1V portable [id number] IMPRESSION: Findings concerning for mild volume overload versus CHF. Small bilateral pleural effusions.
--- NOTE | 2020-11-20 05:34 | ECG_ITS ---
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: : 1935 Requested By: Zachary Wilcox Order Number: [id number] MD: BHASKAR QUINTEROS Measurements Intervals [place] Rate: 94 P: 255 [place]: 158 QRS: -69 QRSD: 135 T: 62 QT: 399 QTc: 501 Interpretive Statements ECTOPIC ATRIAL RHYTHM WITH OCCASIONAL VENTRICULAR PREMATURE COMPLEXES RIGHT BUNDLE BRANCH BLOCK [120+ ms QRS DURATION, UPRIGHT V1, 40+ ms S IN I/aVL/V4/V5/V6] LEFT ANTERIOR FASCICULAR BLOCK [QRS AXIS <= -45, QR IN I, RS IN II] MODERATE VOLTAGE CRITERIA FOR LVH, CONSIDER NORMAL VARIANT [MEETS CRITERIA IN ONE OF: R(aVL), S(V1), R(V5), R(V5/V6)+S(V1)] Compared to ECG 11/08/2020 21:19:24 Ectopic atrial rhythm now present Ventricular premature complex(es) now present Right bundle-branch block now present Left anterior fascicular block now present Sinus bradycardia no longer present Left-axis deviation no longer present Intraventricular conduction delay no longer present Electronically Signed On 11-20-2020 20:12:41 CDT by BHASKAR QUINTEROS [email or web address]
[2020-11-20 05:52] LABS: Basophils # 0.1 10^3/uL (0.0-0.1); Basophils % 1.2 %; Hematocrit 42.6 % (37.0-47.0); Hemoglobin 12.8 g/dL (11.5-15.3); Lymphocytes # 0.7 10^3/uL (0.8-4.8); Lymphocytes % 15.5 %; Mean Corpuscular Hemoglobin 31.1 pg (28.0-34.0); Mean Corpuscular Volume 103.4 fL (81-99); Mean Platelet Volume 10.4 fL (7.4-10.4); Monocytes # 0.6 10^3/uL (0.2-0.9); Monocytes % 13.3 %; Neutrophils # 2.93 10^3/uL (1.8-7.7); Neutrophils % 69.8 %; Nucleated Red Blood Cells % 0 %; Platelet Count 156 10^3/cmm (130-400); Red Blood Count 4.12 10^6/uL (4.1-5.3); Red Cell Distribution Width 14.6 % (12.1-15.1); White Blood Count 4.2 10^3/uL (4.0-10.0)
[2020-11-20] MEDS: sodium chloride 0.9% 1,000 ML 999 ML IV (06:01)
--- NOTE | 2020-11-20 06:11 | CTR_ITS ---
PROCEDURE INFORMATION: Exam: CT Abdomen And Pelvis Without Contrast Exam date and time: 11/20/2020 6:11 AM Age: 85 years old Clinical indication: Abdominal pain; Localized; Prior surgery; Surgery type: Cabg. Dialysis cath. Hysterectomy. Hernia repair. ; Patient HX: Left sided abd pain with hematoemesis. ; Additional info: Pain, luq/llq abd pain; Hematemesis; Dialysis PT; No contrast TECHNIQUE: Imaging protocol: Computed tomography of the abdomen and pelvis without contrast. Radiation optimization: All CT scans at this facility use at least one of these dose optimization techniques: automated exposure control; mA and/or kV adjustment per patient size (includes targeted exams where dose is matched to clinical indication); or iterative reconstruction. COMPARISON: US Renal Kidney Structu* [id number] 11/22/2015 2:57 PM RADIATION DOSE METRICS: Total DLP (mGy-cm): 1129.29 FINDINGS: Pleural spaces: Bilateral pleural effusions with compressive atelectasis and or other consolidation in the lower lobes. Liver: No mass. Gallbladder and bile ducts: No calcified stones. No ductal dilation. Pancreas: No ductal dilation. Spleen: No splenomegaly. Adrenal glands: Normal. No mass. Kidneys and ureters: No hydronephrosis. Stomach and bowel: There is a large right lateral lower abdominal wall ventral hernia containing slightly prominent fluid-filled loops of small bowel and portions of the colon. No significant dilation of the more proximal small bowel loops. There is severe colonic diverticulosis. No findings of diverticulitis. Appendix: The appendix is not identified. Intraperitoneal space: There is free intraperitoneal air. Cannot exclude small bowel obstruction with perforation or other viscus, as source of free air. There is free fluid in the abdomen. Vasculature: No abdominal aortic aneurysm. Lymph nodes: No enlarged lymph nodes. Urinary bladder: Unremarkable as visualized. Reproductive: Status post hysterectomy. Bones/joints: Degenerative changes of the lumbar spine. Soft tissues: Unremarkable. CT/CT abdomen pelvis wo con [id number] IMPRESSION: 1. There is free intraperitoneal air. There is a large right lateral lower abdominal wall ventral hernia containing slightly prominent fluid-filled loops of small bowel and portions of the colon. No significant dilation of the more proximal small bowel loops. Cannot exclude small bowel obstruction with perforation or other viscus, as source of free air. There is a small to moderate amount of free fluid in the abdomen. 2. Bilateral pleural effusions with compressive atelectasis and or other consolidation in the lower lobes. Radiation Dose CTDIVOL = (mGy): DLP = 1129.29 (mGy-cm)
[2020-11-20 06:16] LABS: Alanine Aminotransferase 20 U/L (0-33); Albumin Level 2.6 g/dL (3.5-5.2); Alkaline Phosphatase 81 IU/L (35-105); Blood Urea Nitrogen 20 mg/dL (8-23); Calcium 10.1 mg/dL (8.5-10.5); Carbon Dioxide 32 mmol/L (22-29); Chloride 93 mmol/L (98-107); Globulin 3.1 g/dL (1.3-4.6); Glucose 103 mg/dL (65-115); Lipase 162 U/L (13-60); Osmolality Calculated 287 mOsm/kg (285-295); Sodium 137 mmol/L (136-145); Total Bilirubin 0.6 mg/dL (0.15-1.2); Total Protein 5.7 g/dL (6.6-8.7)
[2020-11-20 06:17] LABS: Slide Review Slide Review Perform
[2020-11-20] MEDS: pantoprazole 40 mg SDV 80 MG IVP (06:20)
[2020-11-20 06:23] LABS: Anion Gap 16.3 (5-19); Aspartate Amino Transferase 36 U/L (0-32); Potassium 4.3 mmol/L (3.5-5.1)
[2020-11-20 07:50] LABS: Lactate (Lactic Acid level) 3.7 mmol/L (0.5-2.2)
--- NOTE | 2020-11-20 08:11 | P.CONIM_ITS ---
Providers/Reason For Consult Consulting Physician/Specialty*: General Surgery Dr. Cohen Reason for Consult*: Intraperitoneal free air Attending Physician: Ishan Cohen MD Primary Care Provider: Kash Munoz DO History of Present Illness History of Present Illness Cindy Mena is a 85 year old female Who was brought to the emergency room with complaints of vomiting blood. She lives in a group home and had previously placed her hemodialysis catheter last month. As per EMS patient has been having coffee-ground emesis since this morning. Patient was noted to have generalized abdominal pain and therefore a CT abdomen pelvis was obtained which showed intraperitoneal free air with a large recurrent incisional hernia. At present she complains of abdominal pain but denies any nausea or vomiting. Review of Systems 2 General: Reports: ROS unobtainable due to mental status Meds/Allergies Home Medications and Allergies Home Medications Medication Instructions Recorded Confirmed Last Taken Type Culturelle 1 cap PO DAILY PRN 11/08/20 11/08/20 Unknown History Lantus Solostar U-100 Insulin 20 unit SUBCUT BEDTIME 11/08/20 11/08/20 11/07/20 History Nystop See Rx Instructions .ROUTE .COMPLEX 11/08/20 11/08/20 Unknown History Thyroid Complex 1 tab PO DAILY 11/08/20 11/08/20 Unknown History albuterol sulfate 2 puff INHALATION Q4H PRN 11/08/20 11/08/20 Unknown History fluticasone propionate 1 spray INTRANASAL BID PRN 11/08/20 11/08/20 Unknown History B-complex with vitamin C 1 tab PO DAILY #30 tab 11/14/20 Unknown Rx aspirin 81 mg PO DAILY #30 tab 11/14/20 Unknown Rx calcium acetate [Calphron] 1,334 mg PO TIDWM 30 Days #60 tab 11/14/20 Unknown Rx furosemide [Lasix] 80 mg PO BID 30 Days #60 tab 11/14/20 Unknown Rx levothyroxine 137 mcg PO DAILY 30 Days #30 tab 11/14/20 Unknown Rx losartan 12.5 mg PO DAILY 30 Days #30 tab 11/14/20 Unknown Rx Allergies Allergy/AdvReac Type Severity Reaction Status Date / Time ibuprofen [From Advil] Allergy Unknown Verified 11/08/20 13:52 Penicillins Allergy Unknown Verified 11/08/20 13:52 Current Medications Current Medications Generic Name Dose Route Start Last Admin Trade Name Freq PRN Reason Stop Dose Admin Cefoxitin Sodium 1,000 mg/ 50 mls @ 100 mls/hr 11/20/20 08:00 11/20/20 07:55 Sodium Chloride IV 11/20/20 08:29 100 mls/hr ONCE ONE Administration Protocol PFSH Acute PFSH: Medical History CAD (coronary artery disease) CHF (congestive heart failure) Chronic kidney disease, stage 5, kidney failure CVA (cerebral vascular accident) DM type 2 (diabetes mellitus, type 2) Hypothyroidism Surgical History H/O hernia repair H/O: hysterectomy Hx of CABG Hx of tonsillectomy Family History Brother Myocardial infarction Chronic kidney disease (CKD) Social History Smoking and tobacco status: never smoked Alcohol intake: never Lives independently: No Housing: Assisted Living Facility Marital status: / Vitals/I&O/Wt Last Vital Signs Temp 97.3 F L 11/20/20 05:31 Pulse 94 11/20/20 08:00 Resp 20 H 11/20/20 08:00 BP 89/57 11/20/20 08:00 Pulse Ox 94 11/20/20 08:00 11/19/20 11/20/20 11/20/20 22:59 06:59 14:59 Intake Total 1000 / 1000 Balance 1000 / 1000 Weight last 48 hrs Weight 180 lb Physical Exam Narrative: EXAM NARRATIVE: HEENT: Normocephalic Eye: Sclera /conjunctiva normal Respiratory and chest: Bilateral clear breath sounds on auscultation Cardiovascular: Normal S1 and S2 heart sounds Abdomen: Soft to palpation, generalized tenderness, guarding present, large right-sided recurrent incisional hernia Neurological: Oriented to place person and time Skin: Intact, no lesions appreciated on gross exam Data Micro: Micro: Microbiology 11/20/20 07:15 Blood Culture - Pr eliminary Blood SPECIMEN COLLEC JING 11/20/20 07:15 Blood Culture - Pr eliminary Blood SPECIMEN COLLE JING Other Data: Other data: CT abdomen and pelvis 1. There is free intraperitoneal air. There is a large right lateral lower abdominal wall ventral hernia containing slightly prominent fluid-filled loops of small bowel and portions of the colon. No significant dilation of the more proximal small bowel loops. Cannot exclude small bowel obstruction with perforation or other viscus, as source of free air. There is a small to moderate amount of free fluid in the abdomen. 2. Bilateral pleural effusions with compressive atelectasis and or other consolidation in the lower lobes. A&P Assessment and plan (1) Free intraperitoneal air: 85-year-old female with history of chronic kidney disease on dialysis is a group home resident who presents with abdominal pain and suspected GI bleed. Patient has been hypotensive in the ER with systolic in the 70s to 80s. Her WBC is 4.2 and lactate is 3.7. Had extensive discussion with the patient and her power of trade mark attorney who is her brother as well as her daughter in [facility] about her findings, treatment options, risks benefits of surgery. After extensive discussion. The patient wishes to proceed with laparotomy, possible bowel resection, possible ostomy. Status: Acute Consult Attestations Medical Necessity Statement: As per attending physician Coding Level of Care Code Acute Manager User Interface for Chg Fwd Diagnoses Free intraperitoneal air K66.8
[2020-11-20] MEDS: sodium chloride 0.9% 1,000 ML 30 ML IV (08:21)
--- NOTE | 2020-11-20 08:21 | P.HP_ITS ---
Providers/Chief Complaint Primary Care Provider: Kash Munoz DO Chief Complaint: vomiting blood History of Present Illness Cindy Mena is a 85 year old female who resides at [facility], previously at [facility] presents with some dry heaves the last 24 hours, culminating in some coffee-ground emesis. She has also had some abdominal discomfort. Apparently this started yesterday. She went to dialysis yesterday and received some nausea medicine. She continued to have dry heaves through the night until this morning when coffee-ground emesis was noted and she was sent to the emergency department. There has not been any blood noted in her stool. She has had abdominal discomfort. She has not had fever. Nursing facility relates that she has been vaccinated for Covid. Surgery is visiting with the patient as well, secondary to free air noted on CT scan. Plans are being made in preparation for surgery for perforated viscus. In the emergency department a Protonix drip was started, and she was given some fluids. I have visited with the patient's family, and the patient. Although she is DNR she wants aggressively treated for this perforated bowel, and realizes she may be intubated on pressors following the event. CODE STATUS will be revisited the next day as well. Patient's last hospitalization was November 08, for which she was treated for heart failure as well as end-stage renal disease with initiation of hemodialysis. Review of Systems General: Reports: ROS unobtainable due to mental status (Unobtainable currently secondary to patient's medical condition and pain) Const: Denies: fever(s) Card: Denies: chest pain GI: Reports: abdominal pain, nausea, vomiting and coffee ground emesis Medications/Allergies Home Medications Medication Instructions Recorded Confirmed Last Taken Type Culturelle 1 cap PO DAILY PRN 11/08/20 11/08/20 Unknown History Lantus Solostar U-100 Insulin 20 unit SUBCUT BEDTIME 11/08/20 11/08/20 11/07/20 History Nystop See Rx Instructions .ROUTE .COMPLEX 11/08/20 11/08/20 Unknown History Thyroid Complex 1 tab PO DAILY 11/08/20 11/08/20 Unknown History albuterol sulfate 2 puff INHALATION Q4H PRN 11/08/20 11/08/20 Unknown History fluticasone propionate 1 spray INTRANASAL BID PRN 11/08/20 11/08/20 Unknown History B-complex with vitamin C 1 tab PO DAILY #30 tab 11/14/20 Unknown Rx aspirin 81 mg PO DAILY #30 tab 11/14/20 Unknown Rx calcium acetate [Calphron] 1,334 mg PO TIDWM 30 Days #60 tab 11/14/20 Unknown Rx furosemide [Lasix] 80 mg PO BID 30 Days #60 tab 11/14/20 Unknown Rx levothyroxine 137 mcg PO DAILY 30 Days #30 tab 11/14/20 Unknown Rx losartan 12.5 mg PO DAILY 30 Days #30 tab 11/14/20 Unknown Rx Allergies Allergy/AdvReac Type Severity Reaction Status Date / Time ibuprofen [From Advil] Allergy Unknown Verified 11/08/20 13:52 Penicillins Allergy Unknown Verified 11/08/20 13:52 PFSH Acute PFSH: Medical History (Updated 11/20/20 @ 11:04 by Bubba Rosario MD) CAD (coronary artery disease) CHF (congestive heart failure) Chronic kidney disease, stage 5, kidney failure CVA (cerebral vascular accident) DM type 2 (diabetes mellitus, type 2) End-stage renal disease on hemodialysis Hypothyroidism Surgical History H/O hernia repair H/O: hysterectomy Hx of CABG Hx of tonsillectomy Family History Brother Myocardial infarction Chronic kidney disease (CKD) Social History Smoking and tobacco status: never smoked Alcohol intake: never Lives independently: No Housing: Assisted Living Facility Marital status: / Vitals/I&O/Wt Last Vital Signs Temp 97.8 F 11/20/20 08:18 Pulse 93 11/20/20 08:18 Resp 18 11/20/20 08:18 BP 110/73 11/20/20 08:18 Pulse Ox 98 11/20/20 08:18 11/19/20 11/20/20 11/20/20 22:59 06:59 14:59 Intake Total 1000 / 1000 Balance 1000 / 1000 Weight last 48 hrs Weight 81.647 kg Physical Exam Narrative: EXAM NARRATIVE: General exam is a hard of hearing female, reporting she has mild abdominal discomfort, who is having difficulty maintaining a regular conversation. Questions are limited. HEENT: Pupils equally round. Oropharynx clear. Neck is supple no lymphadenopathy or thyromegaly. Right chest tunneled dialysis catheter noted. Cardiovascular regular rate and rhythm, borderline tachycardic, 2/6 systolic murmur Lungs clear no wheezing or crackles Abdomen. Bowel sounds are not heard. Hernia on the right side is larger but soft. was deferred Extremities no cyanosis clubbing. Trace edema is present Skin no rash Neuro no obvious focal deficits. Data : 11/20/20 05:30 11/20/20 05:30 Micro: Microbiology 11/20/20 07:15 Blood Culture - Preliminary Blood SPECIMEN COLLECTED 11/20/20 07:15 Blood Culture - Preliminary Blood SPECIMEN COLLECTED Other data: INR 1.2 Lactate 3.7 Calcium 10.1 LFTs normal with exception of AST of 36 Albumin 2.6 Lipase 162 Recent echocardiogram earlier this month demonstrated an EF of 45 to 50% and grade 3 diastolic dysfunction. Possibly severe low gradient aortic valve stenosis with a valve area of 0.7. Moderate to severe mitral regurgitation and moderate tricuspid regurgitation. Chest x-ray small bilateral effusions CT abdomen pelvis free intraperitoneal air, hernia with some fluid filled bowel loops, bilateral pleural effusions EKG demonstrates sinus rhythm left axis deviation left anterior fascicular block and nonspecific ST-T wave changes A&P Assessment and plan (1) Free intraperitoneal air: I saw her prior to surgery. I have seen her following surgery. Surgeon indicates she had a small perforation in her stomach that was oversewn. She had significant leakage of gastric contents into her abdominal cavity which required drainage and washing. Continue imipenem as she is allergic to penicillin products Vancomycin 1 g IV now, and then adjusted for renal function Close monitoring in the ICU Following surgery she presented back to the emergency department intubated. We will continue this until dialysis can be provided safely with 2 make her as euvolemic as possible prior to extubation. Propofol, fentanyl for sedation Blood cultures Status: Acute (2) Gastrointestinal hemorrhage with hematemesis: Continue Protonix drip. If no evidence of significant bleeding by tomorrow we will change to Protonix IV every 12 hours Status: Acute (3) End-stage renal disease on hemodialysis: Nephrology consultation for continued dialysis Status: Acute (4) Hypotension: Secondary to perforated viscus Placed on norepinephrine per anesthesia while in the operating theater. Wean norepinephrine as tolerated. Status: Acute (5) Aortic valve stenosis, nonrheumatic: Patient has refused evaluation for TAVR Status: Acute (6) Atherosclerosis of coronary artery of seminole heart without angina pectoris: No chest discomfort Resume aspirin when safe to do so. Status: Acute Qualifiers: Coronary Disease-Associated Artery/Lesion type: seminole artery Qualified Code(s): I25.10 - Atherosclerotic heart disease of seminole coronary artery without angina pectoris (7) DM type 2 (diabetes mellitus, type 2): Sliding scale insulin N.p.o. status currently Status: Acute (8) CHF (congestive heart failure): Currently appears compensated but did get significant fluid during surgery. We will try to keep compensated with recommendations per nephrology. Status: Acute (9) CVA (cerebral vascular accident): Resume aspirin when possible Status: Acute Additional A&P Information Patient was allow natural prior to coming to the hospital, but wanted full resuscitation during the surgical. This will need to be revisited. Heparin for DVT prophylaxis when appropriate from a surgical standpoint. Possibly initiate tomorrow. Attestations Medical Necessity Statement*: Will need greater than 2 midnight stay for evaluation and treatment of perforated viscus, hypotension requiring pressors Time Spent in Patient Care: Greater than 35 minutes Critical Care Time: The high probability of a clinically significant, sudden or life threatening deterioration of the patient's [pulmonary, renal, GI] system(s) required my full and direct attention, intervention and personal management. The critical care time is as shown. This time is in addition to time spent performing any reported procedures but includes the following: [x] Data and vital sign review and interpretation [x] Patient assessment, examination and intervention [x] Documentation [x] Medication orders and management Critical Care Time (min): 66 Coding Level of Care Code Acute Real Estate Administrator for Chg Fwd Diagnoses Free intraperitoneal air K66.8 Gastrointestinal hemorrhage with hematemesis K92.0 End-stage renal disease on hemodialysis N18.6; Z99.2 Hypotension I95.9 Aortic valve stenosis, nonrheumatic I35.0 Atherosclerosis of coronary artery of seminole heart without angina pectoris I25.10 Coronary Disease-Associated Artery/Lesion type: seminole artery DM type 2 (diabetes mellitus, type 2) E11.9 CHF (congestive heart failure) I50.9 CVA (cerebral vascular accident) I63.9
--- NOTE | 2020-11-20 08:24 | PC.NURSE ---
verbal consent via patient for surgery heard by this nurse and Dr. Cohen. Patient unable to sign due to being weak. Verbal consent via telephone also received from pt DPOA Roebrt Rosado- which was also heard by this nurse and Dr. Cohen.
--- NOTE | 2020-11-20 08:32 | ANES.PREANE2 ---
Pre-Anesthetic Assessment Pre-Anesthetic Assessment: Height/Weight: Height 1.5 m Weight 81.647 kg Temp Pulse Resp BP Pulse Ox 97.8 F 93 18 110/73 98 11/20/20 08:18 11/20/20 08:18 11/20/20 08:18 11/20/20 08:18 11/20/20 08:18 Preop Diagnosis: perforated viscus Proposed Procedure: Operation Date: 11/20/20 08:05 Proposed Procedures p Exploratory Laparotomy(Not Applicable) - Ishan Cohen MD Was Beta Marion taken within 24 hours: N/A Was Clonidine taken within 24 hours: N/A Social: Social History: No alcohol and No tobacco Exam: Pre-Anes Outpt Exam: oriented x 3, clear to auscultation bilaterally and regular rate & rhythm (hypotensive) Additional Exam Findings (including area of procedure): Lethargic and weak Airway: Submandibular: WNL Cervical ROM: WNL MP: 1 Dentition: False Pulmonary: Pulmonary: None reported CV/HEM: CV/HEM: CAD and HTN : Comments: Acute Renal Failure Hepatic: Hepatic: None reported GI: GI: None reported Musc/skel: Musc/skel: OA/DJD and Weakness Neuropsych: Neuropsych: TIA Anesthetic Plan: ASA status: 4E Anesthesia: General (Pre-induction A-line) Other: Lenghty discussion regarding high M/M and likelihood of post op vent with patient and family Risk of > 500 ml blood loss (7ml/kg in children): Yes, adequate IV access and fluids planned Meds/Allergies Current Medications: Current Medications Generic Name Dose Route Start Last Admin Trade Name Freq PRN Reason Stop Dose Admin Sodium Chloride 1,000 mls @ 30 ml s/hr 11/20/20 08:30 11/20/20 08:21 Sodium Chloride 0.9% IV 30 mls/hr .Q24H ALICIA Administration PFSH Anesthesia PFSH: Medical History CAD (coronary artery disease) CHF (congestive heart failure) Chronic kidney disease, stage 5, kidney failure CVA (cerebral vascular accident) DM type 2 (diabetes mellitus, type 2) Hypothyroidism Surgical History H/O hernia repair H/O: hysterectomy Hx of CABG Hx of tonsillectomy Family History Brother Myocardial infarction Chronic kidney disease (CKD) Social History Smoking and tobacco status: never smoked Alcohol intake: never Lives independently: No Housing: Assisted Living Facility Marital status: / Data Anesthesia CBC & Chem 7: 11/20/20 05:30 11/20/20 05:30 Other Labs: Laboratory Results - last 48 hr 11/20/20 11/20/20 11/20/20 05:30 05:30 05:30 WBC 4.2 RBC 4.12 Hgb 12.8 Hct 42.6 MCV 103.4 H MCH 31.1 MCHC 30.0 RDW 14.6 Plt Count 156 MPV 10.4 Neut % (Auto) 69.8 Lymph % (Auto) 15.5 [place] % (Auto) 13.3 Eos % (Auto) 0.0 Baso % (Auto) 1.2 Neut # (Auto) 2.93 Lymph # (Auto) 0.7 L [place] # (Auto) 0.6 Eos # (Auto) 0.0 Baso # (Auto) 0.1 Nucleated RBC % (auto) 0 Nucleated RBCs # 0.0 PT 15.50 H INR 1.20 Sodium 137 Potassium 4.3 Chloride 93 L Carbon Dioxide 32 H Anion Gap 16.3 BUN 20 Creatinine 2.9 H GFR Calculation Not Reportable Glucose 103 Calculated Osmolality 287 Lactate Calcium 10.1 Total Bilirubin 0.6 AST 36 H ALT 20 Alkaline Phosphatase 81 Total Protein 5.7 L Albumin 2.6 L Globulin 3.1 Lipase 162 H 11/20/20 07:15 WBC RBC Hgb Hct MCV MCH MCHC RDW Plt Count MPV Neut % (Auto) Lymph % (Auto) [place] % (Auto) Eos % (Auto) Baso % (Auto) Neut # (Auto) Lymph # (Auto) [place] # (Auto) Eos # (Auto) Baso # (Auto) Nucleated RBC % (auto) Nucleated RBCs # PT INR Sodium Potassium Chloride Carbon Dioxide Anion Gap BUN Creatinine GFR Calculation Glucose Calculated Osmolality Lactate 3.7 H Calcium Total Bilirubin AST ALT Alkaline Phosphatase Total Protein Albumin Globulin Lipase Micro: Microbiology 11/20/20 07:15 Blood Culture - Preliminary Blood SPECIMEN COLLECTED 11/20/20 07:15 Blood Culture - Preliminary Blood SPECIMEN COLLECTED Cardiac Studies: No Data to Display
--- NOTE | 2020-11-20 10:21 | SUR.OPER ---
0900 red silvestre that looks like a burn is located on her left upper thigh. no drainage but blisters noted to skin. 1022 report given to cele hsu, questions answered, ready to receive pt.
--- NOTE | 2020-11-20 10:56 | XR_ITS ---
WS: [id number] PORTABLE CHEST HISTORY: intubation COMPARISON: 11/20/2020 Endotracheal tube is been placed in good position. Tip ends 2 cm above the joo. Nasogastric tube i n satisfactory position with the tip extending beneath the GE junction. Large-bore dialysis catheter unchanged. Small RIGHT pleural effusion. Improved LEFT pleural effusion. Mild pulmonary congestion. No pneumotho rax. Cardiac size: Prior CABG and moderate cardiomegaly. Mediastinum/Aorta: Mild atherosclerosis aorta. No osseous abnormality seen. XR/XR chest 1V portable [id number] IMPRESSION: 1. Satisfactory placement of the nasogastric tube and endotracheal tubes. 2. Mild but improved pulmonary venous congestion and small residual RIGHT pleu ral effusion.
--- NOTE | 2020-11-20 11:05 | PM.OP ---
Operative Report Date of procedure: November 20, 2020 Pre-op Diagnosis: Intraperitoneal free air with hypotension Aortic stenosis ESRD on dialysis Post-op Diagnosis: Gastric perforation in the antrum on the anterior wall 1 L of bilious fluid in the peritoneal cavity Septic shock requiring pressor support Procedure Done: Exploratory laparotomy with repair of gastric perforation using a Marcelo patch Specimens removed/disposition: Gastric ulcer biopsy Surgeon: Ishan Cohen Anesthesia: General Estimated blood loss (mL): 25 IV fluids (mL): 1,800 Condition: stable Disposition: PACU Procedure: The patient was taken to the operating room and intubated under general anesthesia after IV antibiotic had been administered. The abdomen was prepped and draped in a sterile manner. Using a 10 blade a midline laparotomy incision was made extending superior and inferior to the umbilicus, subcutaneous tissues divided using electrocautery and the linea alba was divided to enter the peritoneal cavity. 1 L of bilious fluid is aspirated from the peritoneal cavity. Examination of the right upper quadrant revealed 1 cm gastric perforation in the antrum and the anterior wall. The peritoneal cavity was irrigated with 5 L of warm saline including the right sided incisional hernia sac. The right sided recurrent incisional hernia was incarcerated and I did not attempt to reduce the hernia since there was no evidence of obstruction or strangulation on CT scan. Using 11 blade a stab incision was made in the right upper quadrant and a 10 flat ANA PAULA drain was placed in the subhepatic space adjacent to the gastric perforation and sutured to the skin using 3-0 Prolene suture. Interrupted 2-0 silk sutures were placed around the gastric ulcer after a small biopsy of the gastric ulcer wall was obtained using 11 blade. The anterior leaflet of the greater omentum was from the transverse colon and a tongue of omentum was placed over the gastric perforation and the circumflex sutures were tied down. An NG tube in the stomach was insufflated with 200 cc of air and the leak test was negative. The fascia in the midline was closed using running #1 looped PDS. The wound was irrigated with saline and skin was closed with lzu elena. The ANA PAULA drain was attached to bulb suction. The patient was transferred to ICU with an NG tube, Wright catheter and ANA PAULA drain in place.
--- NOTE | 2020-11-20 11:13 | PC.NURSE ---
REceived patient from Surgery staff. Vitals within normal limts. Will continue to monitor. Physician is putting in new orders at this time.
--- NOTE | 2020-11-20 11:28 | PC.NURSE ---
1055 recd post op for recovery; sedated and on the vent.
--- NOTE | 2020-11-20 11:32 | ANE.PACU2 ---
Inpatient post-anesthesia follow up: Airway intact: Yes Vital signs: Temperature 97.8 F Pulse Rate [Monito r] 91 Pulse Rate 93 Respiratory Rate 14 Blood Pressure [Ri ght Arm] 83/58 Blood Pressure 110/73 Pulse Oximetry 100 Oxygen Delivery Me thod Nasal Cannula Oxygen Flow Rate 2 Fraction of Inspir ed Oxygen 100 Hydration adequate: Yes Nausea and vomiting: No Pain level: Other Mental status: Altered (Sedated for anticipated post op mechanical ventilation. )
[2020-11-20 12:09] LABS: ABG PCO2 32.9 mmHg (35-45); ABG PH Result 7.47 (7.35-7.45); Alveolar-Arterial Oxygen Gradi 47.6 mmHg (5-10); Arterial Blood Gas Hematocrit 33.4 % (37-47); Base Excess ABG 0.9 mmol/L (-2.0-2.0); Blood Gas Operator Identificat GD; Blood Gas Sample Site Not specified; Blood Gas Sample Type Arterial; Blood Gas Tidal Volume 0.38; Carboxyhemoglobin 0.6 %THgb (0.4-20.1); HCO3 ABG 24.1 mmol/L (22-26); HGB O2 Sat 98.8 % (95-100); Ionized Calcium Level - ABG 1.2 mmol/L (1.1-1.4); Oxygen Device VENT; Oxygen Saturation ABG > 100.0; Potassium Level - ABG 3.4 mmol/L (3.5-5.0); Total Hemoglobin 10.9 g/dL (12-16)
--- NOTE | 2020-11-20 12:12 | PC.NURSE ---
R.T. INO2 40%,r ate 12
[2020-11-20] MEDS: pantoprazole 40 MG in sodium chloride 0.9% (plus) 100 ML 20 MG IV ×4 (12:15→22:55)
[2020-11-20] MEDS: sodium chloride 0.9% 1,000 ML 100 ML (12:24)
--- NOTE | 2020-11-20 12:43 | PM.CONSULT ---
Providers/Reason For Consult Consulting Physician/Specialty*: kristel pritchard md / telenephrology Reason for Consult*: ESRD care Attending Physician: Bubba Rosario MD Primary Care Provider: Kash Munoz DO History of Present Illness History of Present Illness Cindy Mena is a 85 year old female recent admission w/ CHF exacerbation and progressive renal failure- requiring initiation of HD. Pt presented to [facility] esrly this am w/ abd pain and coffee ground emesis - CT scan revealed free air in the abdomen- and she was diagnosed w/ abdominal visus perforation. she was started on broad spectum abx, given ivf. She was taken to the OR by Dr. Cohen for Exploratory laparotomy with repair of gastric perforation using a Marcelo patc. In OR she was found to have Gastric perforation in the antrum on the anterior wall 1 L of bilious fluid in the peritoneal cavity. She is currently sedated, intubated in ICU and on low dose levophed. Renal caleld for ESRD care. Review of Systems General: Reports: ROS unobtainable due to mental status Meds/Allergies Home Medications and Allergies Home Medications Medication Instructions Recorded Confirmed Last Taken Type Culturelle 1 cap PO DAILY PRN 11/08/20 11/08/20 Unknown History Lantus Solostar U-100 Insulin 20 unit SUBCUT BEDTIME 11/08/20 11/08/20 11/07/20 History Nystop See Rx Instructions .ROUTE .COMPLEX 11/08/20 11/08/20 Unknown History Thyroid Complex 1 tab PO DAILY 11/08/20 11/08/20 Unknown History albuterol sulfate 2 puff INHALATION Q4H PRN 11/08/20 11/08/20 Unknown History fluticasone propionate 1 spray INTRANASAL BID PRN 11/08/20 11/08/20 Unknown History B-complex with vitamin C 1 tab PO DAILY #30 tab 11/14/20 Unknown Rx aspirin 81 mg PO DAILY #30 tab 11/14/20 Unknown Rx calcium acetate [Calphron] 1,334 mg PO TIDWM 30 Days #60 tab 11/14/20 Unknown Rx furosemide [Lasix] 80 mg PO BID 30 Days #60 tab 11/14/20 Unknown Rx levothyroxine 137 mcg PO DAILY 30 Days #30 tab 11/14/20 Unknown Rx losartan 12.5 mg PO DAILY 30 Days #30 tab 11/14/20 Unknown Rx Allergies Allergy/AdvReac Type Severity Reaction Status Date / Time ibuprofen [From Advil] Allergy Unknown Verified 11/08/20 13:52 Penicillins Allergy Unknown Verified 11/08/20 13:52 Current Medications Current Medications Generic Name Dose Route Start Last Admin Trade Name Freq PRN Reason Stop Dose Admin Sodium Chloride 1,000 mls @ 30 mls/hr 11/20/20 08:30 11/20/20 08:21 Sodium Chloride 0.9% IV 30 mls/hr .Q24H ALICIA Administration Imipenem/Cilastatin Sodium 250 100 mls @ 200 mls/hr 11/20/20 09:00 11/20/20 12:25 mg/ Sodium Chloride IV 200 mls/hr Q6H ALICIA Administration Protocol Norepinephrine Bitartrate 4 mg 254 mls @ 0 mls/hr 11/20/20 08:45 11/20/20 11:45 / Dextrose IV 4 mcg/min .Q0M ALICIA 15.24 mls/hr Titration Protocol Per Protocol PFSH Acute PFSH: Medical History (Updated 11/20/20 @ 11:04 by Bubba Rosario MD) CAD (coronary artery disease) CHF (congestive heart failure) Chronic kidney disease, stage 5, kidney failure CVA (cerebral vascular accident) DM type 2 (diabetes mellitus, type 2) End-stage renal disease on hemodialysis Hypothyroidism Surgical History H/O hernia repair H/O: hysterectomy Hx of CABG Hx of tonsillectomy Family History Brother Myocardial infarction Chronic kidney disease (CKD) Social History Smoking and tobacco status: never smoked Alcohol intake: never Lives independently: No Housing: Assisted Living Facility Marital status: / Vitals/I&O/Wt Last Vital Signs Temp 97.8 F 11/20/20 08:18 Pulse 88 11/20/20 12:30 Resp 24 H 11/20/20 12:30 BP 126/70 11/20/20 12:30 Pulse Ox 99 11/20/20 12:30 11/19/20 11/20/20 11/20/20 22:59 06:59 14:59 Intake Total 3312.065 / 3312.065 Output Total 250 / 250 Balance 3062.065 / 3062.065 Weight last 48 hrs Weight 81.647 kg Physical Exam Narrative: EXAM NARRATIVE: sedated, vebt fio2=40%, TV 380, RR 12, PEEP 6, levo@ 6, protonix drip heent- nc/at, eomi, anicteric neck supple lung left basal dullness, rt clear heart - reg, +MARK, + s1, s2 abd -distended, surgical sites, no bS appreciated ext 1+ edema + tunneled dialysis catheter neuro0 sedated Urinary Catheter Management^: Wright: Cath Placed During This Visit: yes Urinary Catheter Date of Insertion: 11/20/20 Urinary Catheter Time of Insertion: 09:00 Data Micro: Micro: Microbiology 11/20/20 07:15 Blood Culture - Pr eliminary Blood SPECIMEN [facility] JING 11/20/20 07:15 Blood Culture - Pr eliminary Blood SPECIMEN [facility] JING A&P Additional A&P Information 85 yr old female 1. s/p Gastric perforation in the antrum on the anterior wall 1 L of bilious fluid in the peritoneal cavity -s/p Ex Lap w/ repair of gastric perf this am -low dose pressers -broad spectrum abx- dose for ESRD 2. ESRD- check chem 7 -likely hold HD till am when off pressers -k and pH are okay 3. CHF- ef 45-50%, gradr 3 diastolic dysfunction -severe low gradiet -moderate- severe MR -h/c CAD and CABG -follows w/ Dr. Grimes- for outpt eval 4. hypothyroidism -monitor tsh 5. monitor hgb 6. BP should improve w/ abx and dec anesthesia- plan HD in am seen and examine dw/ rN- telehealth visit discussed w/ RN and Dr. Gail Rosario Consult Attestations Medical Necessity Statement: septic shock, s/p gastric perf and surgery, VDRF Time Spent in Patient Care: Greater than 35 minutes Coding Level of Care Code Acute Inspector Metal Can for Shanelleg Dennise
[2020-11-20] MEDS: vancomycin 1,000 MG in sodium chloride 0.9% 250 ML 250 MG IV (13:23)
[2020-11-20 13:24] LABS: Glucose Point of Care 104 mg/dL (70-110)
[2020-11-20 14:04] LABS: Hepatitis B Surface Antigen Non-Reactive (Nonreactive); Hepatitis C Virus Antibody Non-Reactive (Nonreactive)
[2020-11-20 14:07] LABS: Hepatitis B Surface AB < 3.5 (11.5-1000)
[2020-11-20 14:40] LABS: Alanine Aminotransferase 14 U/L (0-33); Albumin Level 2.2 g/dL (3.5-5.2); Alkaline Phosphatase 57 IU/L (35-105); Anion Gap 16.5 (5-19); Aspartate Amino Transferase 31 U/L (0-32); Blood Urea Nitrogen 20 mg/dL (8-23); Calcium 8.1 mg/dL (8.5-10.5); Carbon Dioxide 22 mmol/L (22-29); Chloride 103 mmol/L (98-107); Globulin 2.1 g/dL (1.3-4.6); Glucose 108 mg/dL (65-115); Osmolality Calculated 289 mOsm/kg (285-295); Potassium 3.5 mmol/L (3.5-5.1); Sodium 138 mmol/L (136-145); Total Bilirubin 0.6 mg/dL (0.15-1.2); Total Protein 4.3 g/dL (6.6-8.7)
--- NOTE | 2020-11-20 15:14 | PC.PT ---
PT ehsan attempted. Hold today per nursing.
[2020-11-20 18:14] LABS: Thyroid Stimulating Hormone 9.02 uIU/mL (0.27-4.20)
[2020-11-20 18:53] LABS: Glucose Point of Care 117 mg/dL (70-110)
--- NOTE | 2020-11-20 21:05 | XRR_ITS ---
PROCEDURE INFORMATION: Exam: XR Chest Exam date and time: 11/20/2020 9:05 PM Age: 85 years old Clinical indication: Device placement; Other: Central line; Additional info: Central line placement TECHNIQUE: Imaging protocol: XR of the chest. Views: 1 view. COMPARISON: CR XR chest 1V portable [id number] 11/20/2020 11:14 AM FINDINGS: Tubes, catheters and devices: Endotracheal tube is in satisfactory position with its tip approximately for cm above the joo. There is a new left subclavian central venous catheter with its tip in the superior vena cava. The right jugular central venous catheter tip remains in the region of the right atrium. Nasogastric tube extends into the stomach. The tip is not included on this examination. Lungs: Unremarkable. No consolidation. Pleural spaces: There are bilateral pleural effusions not significantly changed. Heart/Mediastinum: Unremarkable. No cardiomegaly. Bones/joints: Unremarkable. XR/XR chest 1V portable [id number] IMPRESSION: No pneumothorax following left subclavian line placement.
--- NOTE | 2020-11-20 21:18 | PM.ACPR ---
Procedure/Consent Time out: Time Out Performed: Yes Consent: Consent for Procedure: Consent obtained from patient Procedure Narrative: PREOPERATIVE DIAGNOSES: 1. Critically ill patient on pressors with poor venous access POSTOPERATIVE DIAGNOSES: 1. Same PROCEDURE: Placement of 7 [place] Citizen triple lumen catheter in left subclavian vein SURGEON: Dr. Ishan Cohen. DESCRIPTION OF PROCEDURE: The patient was placed in Trendelenburg position after a shoulder roll had been placed. The chest was prepped and draped in a sterile manner. 5 mL of 1% lidocaine was infiltrated under the left clavicle at the site of planned entry. An introducer needle was used to access the subclavian vein and after withdrawal of blood the syringe was removed, and a guidewire was passed. The introducer needle was removed and the skin incision extended using 15 blade. The dilator was passed over the guidewire and a 7 [place] Citizen triple-lumen catheter was passed over the guidewire after removing the dilator. The guidewire was removed. All 3 ports elina blood and flushed easily. The triple-lumen catheter was sutured in place using 2-0 silk suture. Sterile dressings were applied. The patient was stable throughout the procedure. Post operative chest x-ray is pending. Acute Procedures Epistaxis Control: Time out performed: Yes
[2020-11-20 22:32] LABS: Glucose Point of Care 123 mg/dL (70-110)
[2020-11-21] VITALS (67 sets, daily range): BP systolic 71–133; BP diastolic 39–64; PULSE 73–124; RESP 12–26; TEMP 36.5–37.4; O2SAT 95–100
[2020-11-21] MEDS: pantoprazole 40 MG in sodium chloride 0.9% (plus) 100 ML 20 MG IV ×2 (02:45→07:29)
[2020-11-21 05:12] LABS: Hematocrit 32.8 % (37.0-47.0); Mean Corpuscular HGB Conc 30.5 g/dL (30.0-36.0); Mean Corpuscular Volume 101.5 fL (81-99); Mean Platelet Volume 10.6 fL (7.4-10.4); Platelet Count 154 10^3/cmm (130-400); Red Blood Count 3.23 10^6/uL (4.1-5.3); Red Cell Distribution Width 14.6 % (12.1-15.1); White Blood Count 6.4 10^3/uL (4.0-10.0)
--- NOTE | 2020-11-21 05:25 | PC.NURSE ---
Shift Summary Patient intubated added sedation, and she is tolerating it well, she is resting comfortably on the vent, in bilateral wrist restraints because she tries to self extubate when she is not sedated. Dr Cohen placed a central line so that I could have IV access at 2100, Patients daughter Elizabeth updated on patient and so is her sister in law from surgery. Patient is from a assisted and I updated them on her condition. Patient is stable at this time but still on levo, her art line will not read right and has a dampened waveform, Dr Rosario told dayshift to titrate levo off of cuff pressures instead of art line pressures due to the inaccuracy of the art line readings. Patient has been afibrile, moves all and follows commands.
[2020-11-21 05:35] LABS: Vancomycin Random 16.6 ug/mL (20.0-40.0)
[2020-11-21 05:49] LABS: ABG PCO2 35.2 mmHg (35-45); ABG PH Result 7.42 (7.35-7.45); Arterial Blood Gas Hematocrit 30.1 % (37-47); Base Excess ABG -1.3 mmol/L (-2.0-2.0); Blood Gas Operator Identificat JB; Blood Gas Sample Type Arterial; Blood Gas Tidal Volume 0.38; HCO3 ABG 22.8 mmol/L (22-26); Oxygen Device VENT; PO2 ABG 87.2 mmHg (80.0-100.0)
[2020-11-21 05:58] LABS: Slide Review Slide Review Perform
[2020-11-21 06:01] LABS: Absolute Neutrophil 4.2 10^3/cmm (1.4-6.5); Absolute Segmented Neutrophil 1.2 10/cmm (1.6-7.1); Burr Cells 1+; Eosinophils 0 %; Lymphocytes 13 %; Lymphocytes Absolute 0.9 10^3/cmm (1.2-3.4); Monocytes Absolute 0.4 10^3/cmm (0.1-0.6); Ovalocytes 1+; Platelet Estimate Normal (Normal); Poikilocytosis 1+; Segmented Neutrophils 19 %; Total Cells Counted 100 (0-100)
[2020-11-21 06:25] LABS: Alanine Aminotransferase 15 U/L (0-33); Albumin Level 1.9 g/dL (3.5-5.2); Alkaline Phosphatase 63 IU/L (35-105); Aspartate Amino Transferase 40 U/L (0-32); Blood Urea Nitrogen 26 mg/dL (8-23); Calcium 7.9 mg/dL (8.5-10.5); Carbon Dioxide 22 mmol/L (22-29); Chloride 103 mmol/L (98-107); Globulin 2.4 g/dL (1.3-4.6); Glucose 112 mg/dL (65-115); Magnesium 1.6 mg/dL (1.7-2.3); Osmolality Calculated 290 mOsm/kg (285-295); Phosphorus 2.7 mg/dL (2.5-4.5); Sodium 137 mmol/L (136-145); Total Bilirubin 0.5 mg/dL (0.15-1.2); Total Protein 4.3 g/dL (6.6-8.7)
--- NOTE | 2020-11-21 06:43 | ECG_ITS ---
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 Measurements Intervals [employer] Rate: 112 P: NE: QRS: -60 QRSD: 150 T: 60 QT: 413 QTc: 566 Interpretive Statements ATRIAL FIBRILLATION WITH RAPID VENTRICULAR RESPONSE MARKED LEFT AXIS DEVIATION [QRS AXIS < -30] RIGHT BUNDLE BRANCH BLOCK [120+ ms QRS DURATION, UPRIGHT V1, 40+ ms S IN I/aVL/V4/V5/V6] MODERATE VOLTAGE CRITERIA FOR LVH, CONSIDER NORMAL VARIANT [MEETS CRITERIA IN ONE OF: R(aVL), S(V1), R(V5), R(V5/V6)+S(V1)] ST DEPRESSION, CONSIDER SUBENDOCARDIAL INJURY [0.1+ mV ST DEPRESSION] Compared to ECG 11/20/2020 07:30:16 Left-axis deviation now present ST (T wave) deviation now present Ectopic atrial rhythm no longer present Ventricular premature complex(es) no longer present Left anterior fascicular block no longer present Electronically Signed On 11-21-2020 23:00:06 CDT by Demar Grimes M.D. [id number]
--- NOTE | 2020-11-21 07:00 | XR_ITS ---
WS: [id number] Portable AP semiupright chest, 11/21/2020 Clinical Data: resp failure Comparison: Portable chest, 11/20/2020 Findings: The right dialysis catheter, left internal jugular venous catheter, endotracheal tube and n asogastric tube remain in the same position. There are bilateral pleural effusions. The heart is at t he upper limits of normal. Midline sternotomy sutures are present. There are no nodules or masses. Mo nitor leads are on the chest wall. XR/XR chest 1V portable [id number] Impression: No change in multiple tubes and bilateral pleural effusions.
--- NOTE | 2020-11-21 07:48 | PM.PN ---
Subjective Subjective: Interval history: sedated, intubated, pressers. not able to get a ROS Medications: Reviewed: Yes Medication Review Details: Current Medications Acetaminophen (Acetaminophen 325 Mg Tablet) 650 mg PO Q6H PRN PRN Reason: MILD PAIN Dextrose (Dextrose 50% Syringe 50 Ml) 25 ml IVP ONCE PRN; Protocol PRN Reason: hypoglycemia protocol Dextrose (Dextrose 50% Syringe 50 Ml) 50 ml IVP PRN PRN; Protocol PRN Reason: hypoglycemia protocol Glucagon (Glucagon 1 Mg/Ml Inj 1 Ml) 1 mg IM ONCE PRN; Protocol PRN Reason: Adult Acute Hypoglycemia Prot. Imipenem/Cilastatin Sodium 250 (mg/ Sodium Chloride) 100 mls @ 200 mls/hr IV Q6H ALICIA; Protocol Last Infusion: 11/21/20 03:20 Dose: Infused Documented by: Dextrose ([email or web address]) 500 mls @ 50 mls/hr IV ONCE PRN; Protocol PRN Reason: Adult Acute Hypoglycemia Prot Norepinephrine Bitartrate 4 mg (/ Dextrose) 254 mls @ 0 mls/hr IV .Q0M ALICIA; Protocol Last Titration: 11/21/20 07:27 Dose: 14 mcg/min, 53.34 mls/hr Documented by: Pantoprazole Sodium 40 mg/ (Sodium Chloride) 100 mls @ 20 mls/hr IV .Q5H ALICIA Last Admin: 11/21/20 07:29 Dose: 8 mg/hr, 20 mls/hr Documented by: Propofol (Diprivan) 1,000 mg in 100 mls @ 0 mls/hr IV .Q0M ALICIA; Protocol Fentanyl 1,000 mcg/ Sodium (Chloride) 100 mls @ 0 mls/hr IV .Q0M ALICIA; Protocol Last Titration: 11/21/20 07:23 Dose: 25 mcg/hr, 2.5 mls/hr Documented by: Vancomycin HCl 1,000 mg/ (Sodium Chloride) 250 mls @ 250 mls/hr IV Q48H ALICIA Last Infusion: 11/20/20 14:34 Dose: Infused Documented by: Magnesium Sulfate 1 gm/ Sodium (Chloride) 52 mls @ 104 mls/hr IV ONCE ONE Stop: 11/21/20 07:59 Last Admin: 11/21/20 07:26 Dose: 104 mls/hr Documented by: Insulin Aspart (Insulin Aspart 100 Unit/1 Ml) 0 unit SUBCUT WM&BEDTIME ALICIA; Protocol Last Admin: 11/20/20 22:52 Dose: Not Given Documented by: Ondansetron HCl (Ondansetron 2 Mg/Ml Sdv 2 Ml) 4 mg IVP Q6H PRN PRN Reason: NAUSEA AND VOMITING Vitals/I&O/Wt Last Vital Signs Temp 97.7 F 11/21/20 00:00 Pulse 124 H 11/21/20 06:15 Resp 12 11/21/20 05:56 BP 105/64 11/21/20 06:15 Pulse Ox 96 11/21/20 06:15 11/20/20 11/21/20 11/21/20 22:59 06:59 14:59 Intake Total 536.626 / 4198.691 431.147 / 4629.838 153.824 / 153.824 Output Total 70 / 320 100 / 420 Balance 466.626 / 3878.691 331.147 / 4209.838 153.824 / 153.824 Weight last 48 hrs Weight 87.09 kg Weight 81.647 kg Physical Exam Narrative: EXAM NARRATIVE: elderly lady, sedated, vent fio2=30%, RR 12, PEEP 6, levo@ 8, protonix drip heent- nc/at, eomi, anicteric neck supple lung - b/l dull and wheezes heart - reg, +MARK, + s1, s2 abd -distended, surgical sites, RUQ + bS, + edema ext 2+ edema + tunneled dialysis catheter rt ACW neuro- sedated skin no rashes Urinary Catheter Management^: Wright: Cath Placed During This Visit: yes Reason for Continuing Indwelling Catheter: Accurate Measurement of Urinary Output in Critically Ill Patients Urinary Catheter Date of Insertion: 11/20/20 Urinary Catheter Time of Insertion: 08:00 Data : 11/21/20 04:25 11/21/20 04:25 Micro: Microbiology 11/20/20 07:15 Blood Culture - Preliminary Blood NEGATIVE TO DATE 11/20/20 07:15 Blood Culture - Preliminary Blood NEGATIVE TO DATE A&P Additional A&P Information 85 yr old female 1. s/p Gastric perforation in the antrum on the anterior wall 1 L of bilious fluid in the peritoneal cavity -s/p Ex Lap w/ repair of gastric perf this am -remains presser dependent -broad spectrum abx- dose for ESRD -can redose vanco 1 gm today, level is 16.6 2. ESRD- HD now-not acidotic- request to remove fluids- SUF x 3 hrs, remove 2l as tolerated, QB 250 - assess for full HD in am -recently started HD in October 2020 3. CHF- ef 45-50%, gradr 3 diastolic dysfunction -severe low gradient - cardiology reviewed and thinks is less clinically -moderate- severe MR -h/c CAD and CABG -follows w/ Dr. Grimes- for outpt eval 4. hypothyroidism -monitor tsh= 9- adjust levothyroxine per medicine- can be sick euthyroid 5. monitor hgb - give epo -repeat iron studies- likely needs iron 6. replete magnesium seen and examine dw/ rN- telehealth visit discussed w/ RN and Dr. Gail Rosario Attestations Medical Necessity Statement*: s/p gastric perf, ESRD, VDRF, presser dep Time Spent in Patient Care: 16 - 35 minutes Coding Level of Care Code Acute Document Management Analyst for Chg Dennise
[2020-11-21] MEDS: sodium chloride 0.9% 250 ML IV (08:59)
[2020-11-21] MEDS: albumin 12.5 GM/50 ML VIAL IV (09:42)
--- NOTE | 2020-11-21 10:23 | PC.CHAP ---
Pastoral Care Encounter/Spiritual Assessment Type of Contact [] Declined blender / cook visit [] Patient/Family/Request visit [] Outpatient visit [] Follow-up visit [] Physician referral [] Code/Alert [x] Routine visit [] Staff referral [] Actively dying [] Patient sleeping [] Family support [] [] Out of room [] Palliative care [] [] Receiving care in room [] Pre-surgical visit [] Trauma [] Long length of stay [x] ICU visit [x] Other: ventilator Relational/Emotional Strength [] Patient feels connected with others/family/visitors/staff [] Distress [] Loneliness/isolation [] Abandonment Spirituality of Patient [] Person of Cecilia [] Attends Orthodox of their Cecilia [] Believes in Prayer [] Reads Bible or Mandaeism materials [] There are Spiritual issues to be addressed Physical Medicine Teacher Interventions [x] Prayer [] Active listening [] Non-anxious presence [] Spiritual/emotional support [] Crisis/trauma care [] Spiritual counseling [] Bereavement support [] Provided bereavement packet [] Provided Bible/devotional materials [] Provided toy/stuffed animal, coloring book to patient or family member [] Provided Communion [] Anointing/[place] [] Salvation [x] Completed spiritual assessment [] Other: Impact on Illness or Injury [] Angry [] Fearful [] Anxious [] Often cries [] Exhaustion [] Unable to work [] Unable to attend zoroastrian [] Unable to walk/stand [] Unable to read [] Unable to drive [] Unable to eat/drink [] Unable to sleep [] Unable to be with family [] Patient intubated [] Other: Summary Time spent with patient
[2020-11-21] MEDS: heparin, porcine 1,000 unit/mL INJ 10 mL HE (11:14)
[2020-11-21 11:33] LABS: ABG PCO2 29.4 mmHg (35-45); ABG PH Result 7.24 (7.35-7.45); Arterial Blood Gas Hematocrit 29.2 % (37-47); Base Excess ABG -13.6 mmol/L (-2.0-2.0); Blood Gas Operator Identificat GD; Blood Gas Sample Site Not specified; Blood Gas Sample Type Arterial; Carboxyhemoglobin 0.7 %THgb (0.4-20.1); HCO3 ABG 12.6 mmol/L (22-26); HGB O2 Sat 96.2 % (95-100); Methemoglobin 1.1 % (0.4-1.5); Oxygen Device VENT; Oxygen Saturation ABG 97.9; Total Hemoglobin 9.5 g/dL (12-16)
[2020-11-21 11:34] LABS: Blood Gas Tidal Volume 0.38
[2020-11-21 11:39] LABS: Glucose Point of Care 137 mg/dL (70-110)
[2020-11-21] MEDS: sodium chloride 0.9% 500 ML 999 ML IV ×4 (12:11→13:52)
[2020-11-21] MEDS: sodium bicarbonate 150 MEQ in dextrose 5% 1,000 ML 100 MEQ IV (12:14)
--- NOTE | 2020-11-21 12:21 | PM.PN ---
Subjective Subjective: Interval history: Patient currently receiving hemodialysis, maxed out on Levophed, on the ventilator. Patient is awake and follows commands Vitals/I&O/Wt Last Vital Signs Temp 99.1 F 11/21/20 11:41 Pulse 84 11/21/20 11:41 Resp 26 H 11/21/20 11:41 BP 85/43 11/21/20 11:41 Pulse Ox 97 11/21/20 11:10 11/20/20 11/21/20 11/21/20 22:59 06:59 14:59 Intake Total 536.626 / 4629.838 431.147 / 4629.838 790.648 / 790.648 Output Total 70 / 420 100 / 420 767 / 767 Balance 466.626 / 4209.838 331.147 / 4209.838 23.648 / 23.648 Weight last 48 hrs Weight 204 lb 5.896 oz Weight 192 lb Weight 180 lb Physical Exam Narrative: EXAM NARRATIVE: Abdomen: Soft, dressings dry and intact, ANA PAULA drain output is serosanguineous Urinary Catheter Management^: Wright: Cath Placed During This Visit: yes Reason for Continuing Indwelling Catheter: Accurate Measurement of Urinary Output in Critically Ill Patients Urinary Catheter Date of Insertion: 11/20/20 Urinary Catheter Time of Insertion: 08:00 Data : 11/21/20 04:25 11/21/20 04:25 Micro: Microbiology 11/20/20 11:28 Gram Stain - Final Sputum - Endotracheal Tube Aspirate Sputum Culture - Preliminary 11/20/20 07:15 Blood Culture - Preliminary Blood NEGATIVE TO DATE 11/20/20 07:15 Blood Culture - Preliminary Blood NEGATIVE TO DATE A&P Assessment and plan (1) S/P exploratory laparotomy: 84-year-old female status post ex lap and repair of gastric perforation. Patient is on high-dose Levophed and is currently on the ventilator and receiving dialysis. She continues to be critically ill. At this point continue with Protonix PPI therapy NG tube to low intermittent suction ANA PAULA to bulb suction Medical management as per Dr. Rosario Status: Acute Attestations Medical Necessity Statement*: As per primary Coding Level of Care Code Acute Senior Java Software Developer for g Fwd Diagnoses S/P exploratory laparotomy Z98.890
--- NOTE | 2020-11-21 12:47 | PC.NURSE ---
Pt change in condition Pt has gradually declined throughout the shift. Levo is at 20 and she has rec'd 1000ml total bolus. . Her BP has continued to trend down. Dialysis was not able to be started due to the low BP. Family is at bedside and has been updated as the shift has gone on. After speaking with Dr Rosario they have decided to make her DNR. We will continue to monitor BP. Dr Cohen and Dr Claros have been updated
--- NOTE | 2020-11-21 14:27 | PM.PN ---
Subjective Subjective: Interval history: Cindy is on the ventilator, and sedated with fentanyl. Events of last night were noted with increasing norepinephrine requirements, as well as placement of a central line. Medications: Reviewed: Yes Vitals/I&O/Wt Last Vital Signs Temp 99.1 F 11/21/20 14:00 Pulse 84 11/21/20 14:00 Resp 18 11/21/20 14:00 BP 85/43 11/21/20 14:00 Pulse Ox 98 11/21/20 14:00 11/20/20 11/21/20 11/21/20 22:59 06:59 14:59 Intake Total 536.626 / 4198.691 431.147 / 4629.838 3765.184 / 3765.184 Output Total 70 / 320 100 / 420 987 / 987 Balance 466.626 / 3878.691 331.147 / 4209.838 2778.184 / 2778.184 Weight last 48 hrs Weight 92.7 kg Weight 87.09 kg Weight 81.647 kg Physical Exam Narrative: EXAM NARRATIVE: General exam sedated on ventilator HEENT: Endotracheal tube noted Neck is supple no lymphadenopathy or thyromegaly. Right chest tunneled dialysis catheter noted. Left subclavian central line noted Cardiovascular regular rate and rhythm, tachycardic, 2/6 systolic murmur Lungs clear no wheezing or crackles Abdomen. Bowel sounds are not heard. Hernia on the right side is larger but soft. Surgical dressing noted Wright Extremities no cyanosis clubbing. No edema Urinary Catheter Management^: Wright: Cath Placed During This Visit: yes Reason for Continuing Indwelling Catheter: Accurate Measurement of Urinary Output in Critically Ill Patients Urinary Catheter Date of Insertion: 11/20/20 Urinary Catheter Time of Insertion: 08:00 Data : 11/21/20 04:25 11/21/20 04:25 Micro: Microbiology 11/20/20 11:28 Gram Stain - Final Sputum - Endotracheal Tube Aspirate Sputum Culture - Preliminary 11/20/20 07:15 Blood Culture - Preliminary Blood NEGATIVE TO DATE 11/20/20 07:15 Blood Culture - Preliminary Blood NEGATIVE TO DATE A&P Assessment and plan (1) Free intraperitoneal air: Postoperative day #1 status post abdominal exploration with patching of gastric perforation, Marcelo's patch Continue imipenem as she is allergic to penicillin products Continue vancomycin Has had ongoing worsening of her condition over today with increasing metabolic acidosis and hypotension. She is now on 20 of norepinephrine. Multiple fluid boluses were given without improvement. Continue fentanyl for sedation as tolerated Overall she is worsened greatly through the day with increasing metabolic acidosis, and hypotension. A bicarbonate drip has been started. I have been in conversation with the family in regards to her prognosis which was poor prior to surgery secondary to her severe aortic stenosis as well as underlying renal disease requiring hemodialysis. In discussion with we have made her a limited code with no CPR. As she is currently intubated mechanical ventilation/ICU care will be continued currently and if prognosis is dismal consideration of withdrawal of measures that are not helpful. This was discussed with her power of biometrics consultant brother as well as her daughter. Status: Acute (2) Gastrointestinal hemorrhage with hematemesis: Protonix 40 mg twice daily Check hemoglobin and hematocrit Status: Acute (3) End-stage renal disease on hemodialysis: Nephrology consultation for continued dialysis Status: Acute (4) Hypotension: Secondary to perforated viscus Placed on norepinephrine per anesthesia while in the operating theater. Status: Acute (5) Aortic valve stenosis, nonrheumatic: Patient has refused evaluation for TAVR Status: Acute (6) Atherosclerosis of coronary artery of [place] heart without angina pectoris: No chest discomfort Resume aspirin when safe to do so. Status: Acute Qualifiers: Coronary Disease-Associated Artery/Lesion type: [place] artery Qualified Code(s): I25.10 - Atherosclerotic heart disease of [place] coronary artery without angina pectoris (7) DM type 2 (diabetes mellitus, type 2): Sliding scale insulin N.p.o. status currently Status: Acute (8) CHF (congestive heart failure): FiO2 requirement still approximately 40%. May overload with extra fluid needed secondary to hypotension. She has had some arrhythmias today, likely secondary to her worsening clinical state. Cardiology is reviewing this. Magnesium has been supplemented. Status: Acute (9) CVA (cerebral vascular accident): Resume aspirin when possible Status: Acute Additional A&P Information Patient was allow natural prior to coming to the hospital, but wanted full resuscitation during the surgical. This has been discussed again with the family considering her worsened state and limited code was initiated. Heparin for DVT prophylaxis when appropriate from a surgical standpoint Attestations Medical Necessity Statement*: Needs continued hospital stay secondary to perforated stomach status post surgery, with worsening metabolic acidosis and hypotension. Critical Care Time: The high probability of a clinically significant, sudden or life threatening deterioration of the patient's [renal, GI, vascular] system(s) required my full and direct attention, intervention and personal management. The critical care time is as shown. This time is in addition to time spent performing any reported procedures but includes the following: [x] Data and vital sign review and interpretation [x] Patient assessment, examination and intervention [x] Documentation [x] Medication orders and management Critical Care Time (min): 48 Coding Level of Care Code Acute Planning Aide for Chg Fwd Diagnoses Free intraperitoneal air K66.8 Gastrointestinal hemorrhage with hematemesis K92.0 End-stage renal disease on hemodialysis N18.6; Z99.2 Hypotension I95.9 Aortic valve stenosis, nonrheumatic I35.0 Atherosclerosis of coronary artery of [place] heart without angina pectoris I25.10 Coronary Disease-Associated Artery/Lesion type: [place] artery DM type 2 (diabetes mellitus, type 2) E11.9 CHF (congestive heart failure) I50.9 CVA (cerebral vascular accident) I63.9
[2020-11-21 14:47] LABS: Hematocrit 29.3 % (37.0-47.0); Hemoglobin 8.9 g/dL (11.5-15.3)
--- NOTE | 2020-11-21 15:42 | PC.PT ---
hold PT D/T hypotension per RN
[2020-11-21 17:02] LABS: Glucose Point of Care 158 mg/dL (70-110)
[2020-11-21] MEDS: pantoprazole 40 mg SDV IVP (19:29)
[2020-11-21] MEDS: norepinephrine 8 MG in dextrose 5 % 500 ML 76.2 MG IV (20:51)
[2020-11-22] VITALS (82 sets, daily range): BP systolic 75–133; BP diastolic 34–83; PULSE 67–127; RESP 13–20; TEMP 35.8–38.6; O2SAT 72–100
[2020-11-22] LABS: Glucose Point of Care 196 mg/dL (70-110)
[2020-11-22] MEDS: sodium bicarbonate 150 MEQ in dextrose 5% 1,000 ML 100 MEQ IV (00:31)
[2020-11-22] MEDS: acetaminophen 325 mg Tablet 650 MG PO (03:24)
[2020-11-22] MEDS: norepinephrine 8 MG in dextrose 5 % 500 ML 76.2 MG IV ×2 (04:26→15:35)
[2020-11-22 04:56] LABS: ABG PCO2 29.1 mmHg (35-45); ABG PH Result 7.46 (7.35-7.45); Arterial Blood Gas Hematocrit 32.1 % (37-47); Base Excess ABG -2.1 mmol/L (-2.0-2.0); Blood Gas Allen Test Pos; Blood Gas Operator Identificat JB; Blood Gas Sample Site Radial, right; Blood Gas Sample Type Arterial; Blood Gas Tidal Volume 0.38; HCO3 ABG 20.9 mmol/L (22-26); Oxygen Device VENT; PO2 ABG 76.3 mmHg (80.0-100.0)
[2020-11-22] MEDS: levothyroxine 150 mcg Tablet OG-TUBE (05:46)
[2020-11-22 06:07] LABS: Basophils % 0.1 %; Eosinophils # 0.1 10^3/uL (0.0-0.8); Eosinophils % 0.9 %; Hematocrit 26.7 % (37.0-47.0); Hemoglobin 8.3 g/dL (11.5-15.3); Lymphocytes # 2.2 10^3/uL (0.8-4.8); Lymphocytes % 15.7 %; Mean Corpuscular HGB Conc 31.1 g/dL (30.0-36.0); Mean Corpuscular Hemoglobin 31.2 pg (28.0-34.0); Mean Corpuscular Volume 100.4 fL (81-99); Mean Platelet Volume 10.7 fL (7.4-10.4); Monocytes # 1.1 10^3/uL (0.2-0.9); Monocytes % 7.9 %; Neutrophils # 10.39 10^3/uL (1.8-7.7); Neutrophils % 74.4 %; Nucleated Red Blood Cells % 0 %; Platelet Count 162 10^3/cmm (130-400); Red Blood Count 2.66 10^6/uL (4.1-5.3); Red Cell Distribution Width 14.7 % (12.1-15.1)
[2020-11-22 06:17] LABS: Alanine Aminotransferase 65 U/L (0-33); Alkaline Phosphatase 79 IU/L (35-105); Anion Gap 18.7 (5-19); Aspartate Amino Transferase 245 U/L (0-32); Blood Urea Nitrogen 33 mg/dL (8-23); Calcium 6.9 mg/dL (8.5-10.5); Carbon Dioxide 21 mmol/L (22-29); Chloride 95 mmol/L (98-107); Globulin 1.9 g/dL (1.3-4.6); Glucose 220 mg/dL (65-115); Magnesium 1.7 mg/dL (1.7-2.3); Osmolality Calculated 286 mOsm/kg (285-295); Phosphorus 1.7 mg/dL (2.5-4.5); Potassium 3.7 mmol/L (3.5-5.1); Sodium 131 mmol/L (136-145); Total Bilirubin 0.5 mg/dL (0.15-1.2); Total Protein 3.9 g/dL (6.6-8.7)
[2020-11-22 06:35] LABS: Slide Review Slide Review Perform
--- NOTE | 2020-11-22 07:00 | XR_ITS ---
WS: [id number] Portable AP upright chest, 11/22/2020 Clinical Data: resp failure Comparison: Portable chest, 11/21/2020 Findings: The dialysis catheter, endotracheal tube, left subclavian catheter and nasogastric tube rem ain in good position. Bilateral opacities in the lower lobes consistent with pleural effusion remain the same. The heart is enlarged. Midline sternotomy sutures are present. The aortic arch shows calcif ication. XR/XR chest 1V portable [id number] Impression: No change from previous chest x-ray.
--- NOTE | 2020-11-22 07:06 | P.PN_ITS ---
Subjective Subjective: Interval history: off sedation and not responsive. opens eyes a little Medications: Reviewed: Yes Medication Review Details: Current Medications Acetaminophen (Acetaminophen 325 Mg Tablet) 650 mg PO Q6H PRN PRN Reason: MILD PAIN Last Admin: 11/22/20 03:24 Dose: 650 mg Documented by: Dextrose (Dextrose 50% Syringe 50 Ml) 25 ml IVP ONCE PRN; Protocol PRN Reason: hypoglycemia protocol Dextrose (Dextrose 50% Syringe 50 Ml) 50 ml IVP PRN PRN; Protocol PRN Reason: hypoglycemia protocol Glucagon (Glucagon 1 Mg/Ml Inj 1 Ml) 1 mg IM ONCE PRN; Protocol PRN Reason: Adult Acute Hypoglycemia Prot. Imipenem/Cilastatin Sodium 250 (mg/ Sodium Chloride) 100 mls @ 200 mls/hr IV Q6H ALICIA; Protocol Last Infusion: 11/22/20 03:32 Dose: Infused Documented by: Dextrose (D5w) 500 mls @ 50 mls/hr IV ONCE PRN; Protocol PRN Reason: Adult Acute Hypoglycemia Prot Propofol (Diprivan) 1,000 mg in 100 mls @ 0 mls/hr IV .Q0M ALICIA; Protocol Fentanyl 1,000 mcg/ Sodium (Chloride) 100 mls @ 0 mls/hr IV .Q0M ALICIA; Protocol Last Titration: 11/21/20 19:18 Dose: 0 mcg/hr, 0 mls/hr Documented by: Vancomycin HCl 1,000 mg/ (Sodium Chloride) 250 mls @ 250 mls/hr IV Q48H ALICIA Last Infusion: 11/20/20 14:34 Dose: Infused Documented by: Albumin Human (Albumin) 12.5 gm in 50 mls @ 60 mls/hr IV PRN PRN PRN Reason: Hypotension and/or symptomatic Last Admin: 11/21/20 09:42 Dose: 60 mls/hr Documented by: Norepinephrine Bitartrate 8 mg (/ Dextrose) 508 mls @ 0 mls/hr IV .Q0M ALICIA; Protocol Last Admin: 11/22/20 04:26 Dose: 20 mcg/min, 76.2 mls/hr Documented by: Potassium Phosphate 15 mmol/ (Sodium Chloride) 105 mls @ 47 mls/hr IV ONCE ONE Stop: 11/22/20 09:44 Insulin Aspart (Insulin Aspart 100 Unit/1 Ml) 0 unit SUBCUT WM&BEDTIME ALICIA; Protocol Last Admin: 11/21/20 20:56 Dose: 4 unit Documented by: Levothyroxine Sodium (Levothyroxine 150 Mcg Tablet) 150 mcg OG-TUBE QAM [facility] Last Admin: 11/22/20 05:46 Dose: 150 mcg Documented by: Lorazepam (Lorazepam 2 Mg/Ml Inj 1 Ml) 0.5 mg IVP Q1H PRN PRN Reason: ANXIETY Morphine Sulfate (Morphine 4 Mg/Ml Sdv 1 Ml) 1 mg IVP Q1H PRN PRN Reason: SEVERE PAIN Ondansetron HCl (Ondansetron 2 Mg/Ml Sdv 2 Ml) 4 mg IVP Q6H PRN PRN Reason: NAUSEA AND VOMITING Pantoprazole Sodium (Pantoprazole 40 Mg Sdv) 40 mg IVP Q12H [facility] Last Admin: 11/21/20 19:29 Dose: 40 mg Documented by: Vitals/I&O/Wt Last Vital Signs Temp 100.9 F H 11/22/20 05:55 Pulse 78 11/22/20 06:00 Resp 19 H 11/22/20 06:37 BP 77/37 11/22/20 06:00 Pulse Ox 97 11/22/20 06:37 11/21/20 11/22/20 11/22/20 22:59 06:59 14:59 Intake Total 2733.792 / 6598.976 1758 / 8356.976 Output Total 115 / 1102 30 / 1132 Balance 2618.792 / 5496.976 1728 / 7224.976 Weight last 48 hrs Weight 93.531 kg Weight 92.7 kg Weight 87.09 kg Physical Exam Narrative: EXAM NARRATIVE: elderly lady, minimally responsive, vent fio2=30%,TV 38-, RR 12, PEEP 6, levo@ 20, protonix drip heent- nc/at, eomi, anicteric neck supple lung - b/l dull and wheezes heart - reg, +MARK, + s1, s2 abd -distended, surgical sites, RUQ + hypoactive bS ext 2+ edema b/l + tunneled dialysis catheter rt ACW neuro- off sedation, minimally responsive skin no rashes Urinary Catheter Management^: Wright: Cath Placed During This Visit: yes Reason for Continuing Indwelling Catheter: Accurate Measurement of Urinary Output in Critically Ill Patients Urinary Catheter Date of Insertion: 11/20/20 Urinary Catheter Time of Insertion: 08:00 Data : 11/22/20 05:17 11/22/20 05:17 Micro: Microbiology 11/21/20 02:30 MRSA Culture - Final Nose 11/20/20 11:28 Gram Stain - Final Sputum - Endotracheal Tube Aspirate Sputum Culture - Preliminary 11/20/20 07:15 Blood Culture - Preliminary Blood NEGATIVE TO DATE 11/20/20 07:15 Blood Culture - Preliminary Blood NEGATIVE TO DATE A&P Additional A&P Information 85 yr old female 1. s/p Gastric perforation in the antrum on the anterior wall 1 L of bilious fluid in the peritoneal cavity -POD # 2 s/p Ex Lap w/ repair of gastric perf -remains presser dependent -levo @ 20 -broad spectrum abx- dose for ESRD -wbc up yo 14 2. ESRD- HD now-not acidotic, k 3.7- however poor MS. Discussed w/ Dr. Rosario will start CRRT in attempt to see if helps w/ MS -recently started HD in October 2020 -pt has a resp alkalosis -initiate CRRT- orders reviewed in detail w/ CHAIRPERSON ANESTHESIOLOGY 3. CHF- ef 45-50%, gradr 3 diastolic dysfunction -severe low gradient - cardiology reviewed and thinks is less clinically -moderate- severe MR -h/c CAD and CABG -follows w/ Dr. Grimes- for outpt eval 4. hypothyroidism -monitor tsh= 9- adjust levothyroxine per medicine- can be sick euthyroid 5. monitor hgb - give epo -repeat iron studies- likely needs iron 6. replete phos and calcium 7. inc lft's seen and examine dw/ rN- telehealth visit -over 35 minutes spoent in pt care- discussed CRRT w/ rN and Dr. Rosario discussed w/ RN and Dr. Gail Rosario Attestations Medical Necessity Statement*: septic shock, ESRD Time Spent in Patient Care: Greater than 35 minutes Coding Level of Care Code Acute Airfield Services Officer for Shilpa Bowden
[2020-11-22] MEDS: pantoprazole 40 mg SDV IVP ×2 (07:42→21:07)
[2020-11-22 08:35] LABS: Hemoglobin 8.5 g/dL (11.5-15.3); Mean Corpuscular HGB Conc 30.4 g/dL (30.0-36.0); Mean Corpuscular Hemoglobin 31.3 pg (28.0-34.0); Mean Corpuscular Volume 102.9 fL (81-99); Mean Platelet Volume 10.9 fL (7.4-10.4); Platelet Count 164 10^3/cmm (130-400); Red Blood Count 2.72 10^6/uL (4.1-5.3); White Blood Count 14.9 10^3/uL (4.0-10.0)
[2020-11-22 08:54] LABS: INR 1.88 (0.8-1.2)
--- NOTE | 2020-11-22 08:57 | PC.CHAP ---
Pastoral Care Encounter/Spiritual Assessment Type of Contact [] Declined card boxer visit [] Patient/Family/Request visit [] Outpatient visit [] Follow-up visit [] Physician referral [] Code/Alert [x] Routine visit [] Staff referral [] Actively dying [x] Patient sleeping [] Family support [] [] Out of room [] Palliative care [] [] Receiving care in room [] Pre-surgical visit [] Trauma [] Long length of stay [x] ICU visit [x] Other: ventilator Relational/Emotional Strength [] Patient feels connected with others/family/visitors/staff [] Distress [] Loneliness/isolation [] Abandonment Spirituality of Patient [] Person of Cecilia [] Attends Church of their Cecilia [] Believes in Prayer [] Reads Bible or Orthodoxy materials [] There are Spiritual issues to be addressed Wave Guide Assembler Interventions [x] Prayer [x] Active listening [x] Non-anxious presence [x] Spiritual/emotional support [] Crisis/trauma care [] Spiritual counseling [] Bereavement support [] Provided bereavement packet [] Provided Bible/devotional materials [] Provided toy/stuffed animal, coloring book to patient or family member [] Provided Communion [] Anointing/[place] [] Salvation [x] Completed spiritual assessment [] Other: Impact on Illness or Injury [] Angry [] Fearful [] Anxious [] Often cries [] Exhaustion [] Unable to work [] Unable to attend gnosticism [] Unable to walk/stand [] Unable to read [] Unable to drive [] Unable to eat/drink [] Unable to sleep [] Unable to be with family [] Patient intubated [] Other: Summary Time spent with patient
[2020-11-22 08:58] LABS: Partial Thromboplastin Time 44.7 SECONDS (23.9-36.7)
[2020-11-22 08:59] LABS: Albumin Level 1.9 g/dL (3.5-5.2); Blood Urea Nitrogen 34 mg/dL (8-23); Carbon Dioxide 20 mmol/L (22-29); Chloride 94 mmol/L (98-107); Glucose 224 mg/dL (65-115); Phosphorus 2.1 mg/dL (2.5-4.5); Sodium 131 mmol/L (136-145)
[2020-11-22 09:17] LABS: Slide Review Slide Review Perform
[2020-11-22 09:26] LABS: Band Neutrophils Absolute 1.3 10^3/cmm (0.0-1.2); Eosinophils 0 %; Lymphocytes 25 %; Monocytes Absolute 0.1 10^3/cmm (0.1-0.6); Segmented Neutrophils 54 %; Total Cells Counted 100 (0-100)
[2020-11-22 09:27] LABS: Absolute Neutrophil 9.4 10^3/cmm (1.4-6.5); Burr Cells 1+; Dohle Bodies 1+; Lymphocytes Absolute 4.8 10^3/cmm (1.2-3.4); Platelet Estimate Normal (Normal); Poikilocytosis 1+
[2020-11-22 09:28] LABS: Anisocytosis Trace
[2020-11-22 11:13] LABS: Glucose Point of Care 175 mg/dL (70-110)
[2020-11-22] MEDS: vancomycin 1,000 MG in sodium chloride 0.9% 250 ML 250 MG IV (12:47)
--- NOTE | 2020-11-22 14:03 | PM.PN ---
Subjective Subjective: Interval history: Cindy is not currently responsive on the ventilator other than some eye opening with stimulation. Medications: Reviewed: Yes Vitals/I&O/Wt Last Vital Signs Temp 100.9 F H 11/22/20 12:00 Pulse 78 11/22/20 12:00 Resp 17 11/22/20 12:09 BP 77/37 11/22/20 12:00 Pulse Ox 96 11/22/20 12:09 11/21/20 11/22/20 11/22/20 22:59 06:59 14:59 Intake Total 2733.792 / 6598.976 1758 / 8356.976 2250 / 2250 Output Total 115 / 1102 30 / 1132 225 / 225 Balance 2618.792 / 5496.976 1728 / 7224.976 2024 / 2024 Weight last 48 hrs Weight 93.531 kg Weight 92.7 kg Weight 87.09 kg Physical Exam Narrative: EXAM NARRATIVE: General exam opens eyes with vigorous stimulation but does not try to vocalize or follow directions. Blood pressure appears to have stabilized. HEENT: Endotracheal tube noted Neck is supple no lymphadenopathy or thyromegaly. Right chest tunneled dialysis catheter noted. Left subclavian central line noted Cardiovascular regular rate and rhythm, tachycardic, 2/6 systolic murmur Lungs clear no wheezing or crackles Abdomen. Bowel sounds are not heard. Hernia on the right side is larger but soft. Surgical dressing noted. Drain noted Wright Extremities no cyanosis clubbing. No edema Urinary Catheter Management^: Wright: Cath Placed During This Visit: yes Reason for Continuing Indwelling Catheter: Accurate Measurement of Urinary Output in Critically Ill Patients Urinary Catheter Date of Insertion: 11/20/20 Urinary Catheter Time of Insertion: 08:00 Data : 11/22/20 08:00 11/22/20 08:00 Micro: Microbiology 11/21/20 02:30 MRSA Culture - Final Nose 11/20/20 11:28 Gram Stain - Final Sputum - Endotracheal Tube Aspirate Sputum Culture - Preliminary A&P Assessment and plan (1) Free intraperitoneal air: Postoperative day #2 status post abdominal exploration with patching of gastric perforation, Marcelo's patch Continue imipenem as she is allergic to penicillin products Continue vancomycin Presentation to the emergency department was consistent with septic shock secondary to perforated stomach. She initially did not have significant hypotension, this presenting following surgery. Fluid resuscitation was performed, albeit cautiously secondary to her low ejection fraction, end-stage renal disease on dialysis, and severe aortic stenosis. She was moved to norepinephrine quickly, and yesterday there was concerns that she would continue to worsen despite high doses. I have visited with the family extensively and CODE STATUS was changed, with thoughts that she might need to progress to comfort care. Overnight blood pressure has stabilized some, but it is difficult to get any meaningful response from her. I have visited with nephrology today and CRRT will be initiated to see if this generates some clearing of her mentation. We will hold all sedative medications. If no improvement is made consider CT head when able. Wean norepinephrine as tolerated. Status: Acute (2) Gastrointestinal hemorrhage with hematemesis: Protonix 40 mg twice daily Hemoglobin currently stable Status: Acute (3) End-stage renal disease on hemodialysis: Nephrology consultation for continued dialysis. She was unstable for hemodialysis yesterday and CRRT will be initiated today. Status: Acute (4) Hypotension: Secondary to perforated viscus and septic shock Currently on norepinephrine and blood pressure appears to have stabilized somewhat. Will wean norepinephrine as tolerated. Status: Acute (5) Aortic valve stenosis, nonrheumatic: Patient has refused evaluation for TAVR Status: Acute (6) Atherosclerosis of coronary artery of [place] heart without angina pectoris: No chest discomfort Resume aspirin when safe to do so. Status: Acute Qualifiers: Coronary Disease-Associated Artery/Lesion type: [place] artery Qualified Code(s): I25.10 - Atherosclerotic heart disease of [place] coronary artery without angina pectoris (7) DM type 2 (diabetes mellitus, type 2): Sliding scale insulin N.p.o. status currently Status: Acute (8) CHF (congestive heart failure): FiO2 requirement now down to 40%. Chest x-ray is consistent with some bilateral pleural effusions and pulmonary congestion as expected with resuscitation and sepsis. CRRT to be tried today. Not a candidate for IV diuretics. Status: Acute (9) CVA (cerebral vascular accident): Resume aspirin when possible Status: Acute Additional A&P Information Respiratory failure. Currently on mechanical ventilation at minimal settings. If she improves neurologically consider extubation. Patient was allow natural prior to coming to the hospital, but wanted full resuscitation during the surgical. This has been discussed again with the family considering her worsened state and limited code was initiated. Initiate heparin today for DVT prophylaxis Attestations Medical Necessity Statement*: Needs continued hospitalization secondary to septic shock, acute respiratory failure Critical Care Time: The high probability of a clinically significant, sudden or life threatening deterioration of the patient's [infectious, GI, pulmonary, renal] system(s) required my full and direct attention, intervention and personal management. The critical care time is as shown. This time is in addition to time spent performing any reported procedures but includes the following: [x] Data and vital sign review and interpretation [x] Patient assessment, examination and intervention [x] Documentation [x] Medication orders and management Critical Care Time (min): 37 Coding Level of Care Code Acute Small Kick Press Operator for Chg Fwd Diagnoses Free intraperitoneal air K66.8 Gastrointestinal hemorrhage with hematemesis K92.0 End-stage renal disease on hemodialysis N18.6; Z99.2 Hypotension I95.9 Aortic valve stenosis, nonrheumatic I35.0 Atherosclerosis of coronary artery of [place] heart without angina pectoris I25.10 Coronary Disease-Associated Artery/Lesion type: [place] artery DM type 2 (diabetes mellitus, type 2) E11.9 CHF (congestive heart failure) I50.9 CVA (cerebral vascular accident) I63.9
[2020-11-22] MEDS: PrismaSol BGK 4/2.5 - 5,000 mL Bag 5000 ML CRRT ×2 (15:53→15:54)
--- NOTE | 2020-11-22 16:10 | P.PN_ITS ---
Subjective Subjective: Interval history: Patient continues to be critically ill, currently on Levophed, intubated. Plan for CRRT today. ANA PAULA drain output is serosanguineous Vitals/I&O/Wt Last Vital Signs Temp 100.9 F H 11/22/20 14:00 Pulse 112 H 11/22/20 14:00 Resp 16 11/22/20 15:11 BP 77/37 11/22/20 14:00 Pulse Ox 98 11/22/20 15:11 11/22/20 11/22/20 11/22/20 06:59 14:59 22:59 Intake Total 1758 / 8356.976 2858 / 2858 Output Total 1131 225 / 225 Balance 1728 / 7224.976 2633 / 2633 Weight last 48 hrs Weight 206 lb 3.2 oz Weight 204 lb 5.896 oz Weight 192 lb Physical Exam Narrative: EXAM NARRATIVE: Abdomen: Soft, nondistended, incision clean dry and intact, ANA PAULA drain output serosanguineous Urinary Catheter Management^: Wright: Cath Placed During This Visit: yes Reason for Continuing Indwelling Catheter: Accurate Measurement of Urinary Output in Critically Ill Patients Urinary Catheter Date of Insertion: 11/20/20 Urinary Catheter Time of Insertion: 08:00 Data : 11/22/20 08:00 11/22/20 08:00 Micro: Microbiology 11/20/20 11:28 Gram Stain - Final Sputum - Endotracheal Tube Aspirate Sputum Culture - Final 11/21/20 02:30 MRSA Culture - Final Nose A&P Assessment and plan (1) S/P exploratory laparotomy: Status post ex lap for gastric perforation, currently on pressors, i ntubated ANA PAULA drain output is serosanguineous Continue NG tube to LIS IV Protonix Continue IV imipenem Medical management as per Dr. Rosario Status: Acute Attestations Medical Necessity Statement*: As per primary Coding Level of Care Code Acute Vice President Of Contracts for Chg Fwd Diagnoses S/P exploratory laparotomy Z98.890
[2020-11-22] MEDS: heparin 5,000 unit/mL INJ 1 mL 5000 UNIT SUBCUT (16:37)
[2020-11-22 17:29] LABS: Glucose Point of Care 186 mg/dL (70-110)
--- NOTE | 2020-11-22 18:13 | PC.NURSE ---
Shift summary Pt began CRRT around 1430 today. Family gave verbal consent. We did have to call [employer] and troubleshoot a high access pressure alarm. The solution was to switch the blue and red sites on the dialysis catheter (so now; blue is connected to red and red is connected to blue) We also decreased the blood flow rate from 200 to 150 both of these helped and stabilized our high pressure alarm. Dr Claros okayed the decrease in blood flow from 200 to 150 and also okayed SubQ heparin. The dialysis catheter is somewhat positional d/t the location under the right subclavian. Pt is tolerating well with no new drops in blood pressure.
[2020-11-22 18:44] LABS: Albumin Level 1.9 g/dL (3.5-5.2); Anion Gap 15.5 (5-19); Blood Urea Nitrogen 30 mg/dL (8-23); Calcium 6.9 mg/dL (8.5-10.5); Carbon Dioxide 23 mmol/L (22-29); Chloride 95 mmol/L (98-107); Glucose 179 mg/dL (65-115); Magnesium 1.7 mg/dL (1.7-2.3); Phosphorus 1.9 mg/dL (2.5-4.5); Potassium 3.5 mmol/L (3.5-5.1); Sodium 130 mmol/L (136-145)
[2020-11-22 18:52] LABS: Partial Thromboplastin Time 47.2 SECONDS (23.9-36.7)
--- NOTE | 2020-11-22 19:30 | PC.NURSE ---
Received bed side shift report from off going nurse. Pt's plan of care reviewed. Pt is currently on CRRT and intubated without sedation. Pt appear to be resting comfortably at this time. Pt only responds to painful stimulation. Pt is able to open her eyes for a short period of time but does not follow commands or acknowledge staff talking to her. It is noted that day shift had difficulties with pt's hemodialysis port and was instructed to switch the assess line with the blue hub and the return line with the red hub. Pt continues to be hooked up this way. No complications noted. Bed in lowest and locked position, call light within reach, x's 3 rails up. Bed alarm on. Will continue to monitor pt.
[2020-11-22 22:30] LABS: Glucose Point of Care 172 mg/dL (70-110)
[2020-11-22] MEDS: norepinephrine 8 MG in dextrose 5 % 500 ML 72.39 MG IV (22:43)
--- NOTE | 2020-11-22 23:30 | PC.NURSE ---
Pt opens her eyes and appears to be looking around and falls back to sleep. Pt responds to verbal and tactile stimulation but unable to follow commands or acknowledge staffing presence. Pt does not appear to be in any pain or discomfort at this time.
[2020-11-23] VITALS (94 sets, daily range): BP systolic 85–147; BP diastolic 32–96; PULSE 86–129; RESP 13–20; TEMP 36–36.6; O2SAT 95–100; BMI 42.5
[2020-11-23 00:05] LABS: Partial Thromboplastin Time 46.6 SECONDS (23.9-36.7)
--- NOTE | 2020-11-23 00:07 | PC.NURSE ---
Increase fluid removal from 50ml/hr to 100ml/hr per Dr. Claros.
--- NOTE | 2020-11-23 00:26 | PC.NURSE ---
Received bed side shift report from off going nurse. Pt's plan of care reviewed. Pt is currently on CRRT and intubated without sedation. Pt appears to be resting comfortably at this time. Pt opens her eyes for a short period of time before falling back to sleep. Pt only responds to painful stimuli. When awake she is unable to follow commands or acknowledge staff talking to her. It is noted that day shift had trouble with pt's hemodialysis port function properly. They were instructed to trouble shoot the problem by hooking the return line to pt's red adaptor and her access line to the blue adaptor. Pt continues to be hooked up this way. No complications noted at this time. Bed in lowest and locked position, call light within reach, x's 3 rails up. Bed alarm on. Will continue to monitor pt.
--- NOTE | 2020-11-23 02:43 | PC.NURSE ---
Pt appears to not tolerate 100ml/hr fluid removal. Had to increase levophed from 19 mcg/min to 24mcg/min to obtain a MAP greather than 65. Pt's HR also increased into the 120's with frequent PVCs. Dr. Claros notified. New order to stop fluid removal at this time to see how pt responds.
[2020-11-23] MEDS: heparin 5,000 unit/mL INJ 1 mL 5000 UNIT SUBCUT ×2 (02:52→15:21)
[2020-11-23 04:20] LABS: Basophils % 0.2 %; Eosinophils # 0.3 10^3/uL (0.0-0.8); Eosinophils % 2.4 %; Hematocrit 29.4 % (37.0-47.0); Hemoglobin 9.1 g/dL (11.5-15.3); Lymphocytes # 1.3 10^3/uL (0.8-4.8); Lymphocytes % 9.8 %; Mean Corpuscular Hemoglobin 30.8 pg (28.0-34.0); Mean Corpuscular Volume 99.7 fL (81-99); Mean Platelet Volume 10.6 fL (7.4-10.4); Monocytes # 1.4 10^3/uL (0.2-0.9); Neutrophils # 9.15 10^3/uL (1.8-7.7); Nucleated Red Blood Cells % 0.2 %; Platelet Count 115 10^3/cmm (130-400); Red Blood Count 2.95 10^6/uL (4.1-5.3); Red Cell Distribution Width 14.7 % (12.1-15.1); White Blood Count 13.1 10^3/uL (4.0-10.0)
[2020-11-23 04:29] LABS: Partial Thromboplastin Time 46.6 SECONDS (23.9-36.7)
[2020-11-23 04:36] LABS: Albumin Level 1.9 g/dL (3.5-5.2); Anion Gap 12.4 (5-19); Blood Urea Nitrogen 21 mg/dL (8-23); Calcium 7.2 mg/dL (8.5-10.5); Carbon Dioxide 24 mmol/L (22-29); Chloride 98 mmol/L (98-107); Glucose 169 mg/dL (65-115); Phosphorus 1.6 mg/dL (2.5-4.5); Potassium 3.4 mmol/L (3.5-5.1); Sodium 131 mmol/L (136-145)
[2020-11-23 04:37] LABS: Alanine Aminotransferase 56 U/L (0-33); Albumin Level 1.9 g/dL (3.5-5.2); Alkaline Phosphatase 110 IU/L (35-105); Anion Gap 13.4 (5-19); Aspartate Amino Transferase 176 U/L (0-32); Blood Urea Nitrogen 21 mg/dL (8-23); Calcium 7.4 mg/dL (8.5-10.5); Carbon Dioxide 24 mmol/L (22-29); Chloride 97 mmol/L (98-107); Globulin 2.1 g/dL (1.3-4.6); Glucose 173 mg/dL (65-115); Magnesium 1.6 mg/dL (1.7-2.3); Osmolality Calculated 279 mOsm/kg (285-295); Phosphorus 1.6 mg/dL (2.5-4.5); Potassium 3.4 mmol/L (3.5-5.1); Sodium 131 mmol/L (136-145); Total Bilirubin 0.7 mg/dL (0.15-1.2)
[2020-11-23 04:49] LABS: ABG PCO2 35.1 mmHg (35-45); ABG PH Result 7.45 (7.35-7.45); Base Excess ABG 0.8 mmol/L (-2.0-2.0); Blood Gas Allen Test Pos; Blood Gas Operator Identificat HARKR; Blood Gas Sample Site Radial, right; Blood Gas Sample Type Arterial; Blood Gas Tidal Volume 0.38; HCO3 ABG 24.5 mmol/L (22-26); Oxygen Device VENT
[2020-11-23 05:01] LABS: Slide Review Slide Review Perform
--- NOTE | 2020-11-23 05:31 | PC.NURSE ---
Addendum entered by Blanquita Silverio RN 11/23/20 05:33: Witnessed Waste. Original Note: I wasted 63.375ml of fentanyl which is the remaining amount left in IV bag per MAR.
[2020-11-23] MEDS: norepinephrine 8 MG in dextrose 5 % 500 ML 87.63 MG IV ×3 (05:34→17:36)
--- NOTE | 2020-11-23 07:00 | XR_ITS ---
WS: [id number] Portable AP supine chest, 11/23/2020 Clinical Data: follow up resp failure Comparison: Portable chest, 11/22/2020 Findings: The right dialysis catheter, left subclavian catheter, endotracheal tube and nasogastric tu be remain in the same position. Bilateral pleural effusions have not changed. The heart is slightly e nlarged. The aortic arch shows calcification and minimal tortuosity. Midline sternotomy sutures are p resent. Monitor leads are on the chest wall. XR/XR chest 1V portable [id number] Impression: No change from yesterday's portable chest.
[2020-11-23] MEDS: PrismaSol BGK 4/2.5 - 5,000 mL Bag 5000 ML CRRT ×6 (07:35→17:43)
[2020-11-23] MEDS: potassium chloride oral liq 20 mEq/15 mL UDC 40 MEQ OG-TUBE (07:49)
[2020-11-23] MEDS: levothyroxine 150 mcg Tablet OG-TUBE (07:49)
[2020-11-23] MEDS: magnesium sulfate premix 2 GM/50 ML PIGGYBACK IV (07:49)
[2020-11-23] MEDS: pantoprazole 40 mg SDV IVP ×2 (07:50→21:38)
[2020-11-23 08:41] LABS: Glucose Point of Care 187 mg/dL (70-110)
--- NOTE | 2020-11-23 09:26 | P.PN_ITS ---
Subjective Subjective: Interval history: Cindy is becoming somewhat more alert. She opens her eyes to any stimuli. It is hard to tell if she is tracking. I can get a reliable nonvoluntary squeeze out of her left hand. Nursing has not really seen her move extremities spontaneously. Medications: Reviewed: Yes Vitals/I&O/Wt Last Vital Signs Temp 97.8 F 11/23/20 08:00 Pulse 113 H 11/23/20 08:00 Resp 14 11/23/20 08:47 BP 104/69 11/23/20 08:00 Pulse Ox 98 11/23/20 08:47 11/22/20 11/23/20 11/23/20 22:59 06:59 14:59 Intake Total 5113.00 / 7971.00 608.000 / 8579.000 Output Total 100 / 325 96 / 421 35 / 35 Balance 5013.00 / 7646.00 512.000 / 8158.000 -35 / -35 Weight last 48 hrs Weight 95.51 kg Weight 95.51 kg Weight 93.531 kg Weight 92.7 kg Physical Exam Narrative: EXAM NARRATIVE: General exam opens eyes spontaneously to sound HEENT: Endotracheal tube noted Neck is supple no lymphadenopathy or thyromegaly. Right chest tunneled dialysis catheter noted. Left subclavian central line noted Cardiovascular regular rate and rhythm, tachycardic, 2/6 systolic murmur Lungs clear no wheezing or crackles Abdomen. Bowel sounds are not heard. Hernia on the right side is larger but soft. Surgical dressing noted. Drain noted Wright Extremities no cyanosis clubbing. No edema Urinary Catheter Management^: Wright: Cath Placed During This Visit: yes Reason for Continuing Indwelling Catheter: Accurate Measurement of Urinary Output in Critically Ill Patients Urinary Catheter Date of Insertion: 11/20/20 Urinary Catheter Time of Insertion: 08:00 Data : 11/23/20 03:12 11/23/20 03:12 Micro: Microbiology 11/20/20 11:28 Gram Stain - Final Sputum - Endotracheal Tube Aspirate Sputum Culture - Final A&P Assessment and plan (1) Free intraperitoneal air: Postoperative day #3 status post abdominal exploration with patching of gastric perforation, Marcelo's patch Continue imipenem as she is allergic to penicillin products Continue vancomycin 1 out of 4 bottles of blood culture from admission growing bacillus Presentation to the emergency department was consistent with septic shock second filiberto to perforated stomach. She initially did not have significant hypotension, this presenting following surgery. Fluid resuscitation was performed, albeit cautiously secondary to her low ejection fraction, end-stage renal disease on dialysis, and severe aortic stenosis. She was moved to norepinephrine quickly, and yesterday there was concerns that she would continue to worsen despite high doses. I have visited with the family extensively and CODE STATUS was changed, with thoughts that she might need to progress to comfort care. Blood pressure has stabilized although she is still requiring pressors on 20 mcg of norepinephrine currently. Concern currently is her mental status, and she has not yet given us a meaningful response although she has become more alert since CRRT was started. At this point CRRT will be continued, monitoring for increased responsiveness. If she does not continue to improve CT scan noncontrast will be considered when CRRT is withdrawn, or patient fails to continue to improve. Continue to wean norepinephrine as tolerated Status: Acute (2) Gastrointestinal hemorrhage with hematemesis: Continue Protonix 40 mg twice daily Hemoglobin currently stable Status: Acute (3) End-stage renal disease on hemodialysis: Nephrology consultation for continued dialysis. She was unstable for hemodialysis so CRRT was started yesterday and is continuing today. Status: Acute (4) Hypotension: Secondary to perforated viscus and septic shock Currently on norepinephrine and blood pressure appears to have stabilized somewhat. Will wean norepinephrine as tolerated. Status: Acute (5) Aortic valve stenosis, nonrheumatic: Patient has refused evaluation for TAVR Status: Acute (6) Atherosclerosis of coronary artery of [place] heart without angina pectoris: No chest discomfort Resume aspirin when safe to do so. Status: Acute Qualifiers: Coronary Disease-Associated Artery/Lesion type: [place] artery Qualified Code(s): I25.10 - Atherosclerotic heart disease of [place] coronary artery without angina pectoris (7) DM type 2 (diabetes mellitus, type 2): Sliding scale insulin N.p.o. status currently Status: Acute (8) CHF (congestive heart failure): FiO2 requirement now down to 30% Chest x-ray is consistent with some bilateral pleural effusions and pulmonary congestion as expected with resuscitation and sepsis. CRRT to be tried today. Not a candidate for IV diuretics. Status: Acute (9) CVA (cerebral vascular accident): Resume aspirin when possible Status: Acute Additional A&P Information Respiratory failure. Currently on mechanical ventilation at minimal settings. FiO2 30% if she improves neurologically consider extubation. Mild transaminitis. Improving. Likely secondary to hypotension Hypomagnesemia. Supplement today. Patient was allow natural prior to coming to the hospital, but wanted full resuscitation during the surgical. This has been discussed again with the family considering her worsened state and limited code was initiated. Continue heparin subcutaneously for DVT prophylaxis Attestations Medical Necessity Statement*: Needs continued hospitalization for treatment of sepsis with IV antibiotics, and ventilatory support pending improvement of neurologic status Critical Care Time: The high probability of a clinically significant, sudden or life threatening deterioration of the patient's [neurologic, pulmonary, GI, infectious, renal] system(s) required my full and direct attention, intervention and personal management. The critical care time is as shown. This time is in addition to time spent performing any reported procedures but includes the following: [x] Data and vital sign review and interpretation [x] Patient assessment, examination and intervention [x] Documentation [x] Medication orders and management Critical Care Time (min): 34 Coding Level of Care Code Acute Coin Machine Collector for [facility] Fwd Diagnoses Free intraperitoneal air K66.8 Gastrointestinal hemorrhage with hematemesis K92.0 End-stage renal disease on hemodialysis N18.6; Z99.2 Hypotension I95.9 Aortic valve stenosis, nonrheumatic I35.0 Atherosclerosis of coronary artery of [place] heart without angina pectoris I25.10 Coronary Disease-Associated Artery/Lesion type: [place] artery DM type 2 (diabetes mellitus, type 2) E11.9 CHF (congestive heart failure) I50.9 CVA (cerebral vascular accident) I63.9
--- NOTE | 2020-11-23 10:21 | PC.NURSE ---
Tele Neph Dr Gutierrez had pt's removal rate set back at 50ml/hr. If pt's BP goes low again we can change back to 0ml/hr and notify him.
--- NOTE | 2020-11-23 11:25 | PM.PN ---
Subjective Subjective: Interval history: Ms Mena is seen and examined at bedside via telemedicine today. CRRT is currently running, going well. No clotting episodes overnight. Currently not on regional anticoagulation. Ultrafiltration was attempted yesterday evening, however, due to increase in need for Levophed, this was titrated back. She remains in net even balance this morning. CRRT parameters are reviewed. Vent parameters are also reviewed, currently FiO2 30% and PEEP of 6. She has mild global anasarca. Neurologically she is currently sedated and vented. Vitals/I&O/Wt Last Vital Signs Temp 97.8 F 11/23/20 11:00 Pulse 113 H 11/23/20 11:00 Resp 14 11/23/20 11:00 BP 104/69 11/23/20 11:00 Pulse Ox 98 11/23/20 11:00 11/22/20 11/23/20 11/23/20 22:59 06:59 14:59 Intake Total 5113.00 / 7971.00 608.000 / 8579.000 150 / 150 Output Total 100 / 325 96 / 421 35 / 35 Balance 5013.00 / 7646.00 512.000 / 8158.000 115 / 115 Weight last 48 hrs Weight 95.51 kg Weight 95.51 kg Weight 93.531 kg Weight 92.7 kg Physical Exam Narrative: EXAM NARRATIVE: Constitutional: Sedated and vented HEENT: Wet mucosa, no jvp, non icteric Lungs: Bilaterally clear without discernible wheeze, rales in all lung zones CVS: S1 S2, no murmurs Abdo: Soft, surgical dressing Ext 4: 2-3+ edema, peripheral perfusion with no cyanosis Neurological: Sedated Urinary Catheter Management^: Wright: Cath Placed During This Visit: yes Reason for Continuing Indwelling Catheter: Accurate Measurement of Urinary Output in Critically Ill Patients Urinary Catheter Date of Insertion: 11/20/20 Urinary Catheter Time of Insertion: 08:00 Data : 11/23/20 03:12 11/23/20 03:12 Micro: Microbiology 11/20/20 11:28 Gram Stain - Final Sputum - Endotracheal Tube Aspirate Sputum Culture - Final A&P Additional A&P Information 1. ESRD Continue CRRT Blood flow prescribed 200, reduce to 150 given high AP pressures We will continue to use PrismaSol 4K/2.5Ca Pre/intra/post 1000/1000/1000 Continue to hold regional anticoagulation Ultrafiltration net even/slightly negative if this can be achieved given fragile hemodynamics Dose medication for GFR less than 15 on CRRT 2. Chemistry Relatively well balanced, of note mild hyponatremia, noncritical aberration, low potassium, magnesium and phosphorus, being replaced. Close monitoring on CRRT; Q12 CMP 3. VDRF Management per ICU team, currently sedated, sedation vacation, hopefully can be weaned in the next few days 4. S/p gastric perforation in the antrum on the anterior wall Postop day [address] Cohen; general surgery Continue broad-spectrum antibiotics ANA PAULA drain noted iv PPI [id number] at bedside, I answered all of her questions to her satisfaction Aakash Gutierrez MD Nephrology [phone] Patient seen and examined via telemedicine, with the assistance of the bedside RN > 25 min spent in evaluation and mgmt of patient Attestations Medical Necessity Statement*: Eval and mgmt of CRRT Coding Level of Care Code Acute Finance And Administration Manager for Shilpa Bowden
[2020-11-23 12:09] LABS: Glucose Point of Care 144 mg/dL (70-110)
--- NOTE | 2020-11-23 12:28 | PC.SOCIAL ---
IMM update IMM not updated as patient is still intubated and won't discharge in 48 hours.
--- NOTE | 2020-11-23 15:08 | PM.PN ---
Subjective Subjective: Interval history: Patient is continued to remain critically ill on the ventilator on pressors Vitals/I&O/Wt Last Vital Signs Temp 97.7 F 11/23/20 14:00 Pulse 92 11/23/20 14:00 Resp 15 11/23/20 14:00 BP 86/39 11/23/20 14:00 Pulse Ox 98 11/23/20 14:00 11/23/20 11/23/20 11/23/20 06:59 14:59 22:59 Intake Total 608.000 / 8579.000 2908 / 2908 Output Total 96 / 421 171 / 171 Balance 512.000 / 8158.000 2737 / 2737 Weight last 48 hrs Weight 210 lb 9 oz Weight 210 lb 9 oz Weight 206 lb 3.2 oz Physical Exam Narrative: EXAM NARRATIVE: Abdomen: Soft, incision clean dry and intact, ANA PAULA drain output is serosanguineous severe Urinary Catheter Management^: Wright: Cath Placed During This Visit: yes Reason for Continuing Indwelling Catheter: Accurate Measurement of Urinary Output in Critically Ill Patients Urinary Catheter Date of Insertion: 11/20/20 Urinary Catheter Time of Insertion: 08:00 Data : 11/23/20 03:12 11/23/20 03:12 Micro: Microbiology 11/20/20 07:15 Blood Culture - Preliminary Blood Bacillus sp not b. anthracis 11/20/20 11:28 Gram Stain - Final Sputum - Endotracheal Tube Aspirate Sputum Culture - Final A&P Assessment and plan (1) S/P exploratory laparotomy: Status post ex lap for gastric perforation, currently on pressors, intubated ANA PAULA drain output is serosanguineous Continue NG tube to LIS IV Protonix Continue IV imipenem Medical management as per Dr. Rosario Status: Acute Attestations Medical Necessity Statement*: As per primary Coding Level of Care Code Acute Head Porter Baggage for Chg Fwd Diagnoses S/P exploratory laparotomy Z98.890
[2020-11-23 17:01] LABS: Glucose Point of Care 149 mg/dL (70-110)
[2020-11-23 17:29] LABS: Albumin Level 1.6 g/dL (3.5-5.2); Anion Gap 13.3 (5-19); Blood Urea Nitrogen 16 mg/dL (8-23); Carbon Dioxide 24 mmol/L (22-29); Chloride 99 mmol/L (98-107); Glucose 174 mg/dL (65-115); Phosphorus 2.6 mg/dL (2.5-4.5); Potassium 4.3 mmol/L (3.5-5.1); Sodium 132 mmol/L (136-145)
--- NOTE | 2020-11-23 18:22 | PC.NURSE ---
Shift summary Pt has remained fairly stable througout the shift. She does open her eyes when you say her name. She does not however appear to be tracking or focusing. Pt is still intubated with no sedation. We are continuing CRRT. Her dressing to her midline incision was removed by Dr Cohen today and left open to air. Incision was painted with chlorahexidine. Pt does have some slightly weeping edema to her arms. We did replace pt's magnesium, potassium and phosphorus. ANA PAULA drain had 45ml out. NG had 60ml out. Family has been updated throughout the shift.
[2020-11-23 22:08] LABS: Glucose Point of Care 166 mg/dL (70-110)
[2020-11-24] VITALS (96 sets, daily range): BP systolic 83–129; BP diastolic 33–106; PULSE 88–139; RESP 13–18; TEMP 36.5–36.6; O2SAT 77–100; BMI 44.0
[2020-11-24] MEDS: norepinephrine 8 MG in dextrose 5 % 500 ML 76.2 MG IV ×3 (03:25→17:40)
[2020-11-24] MEDS: heparin 5,000 unit/mL INJ 1 mL 5000 UNIT SUBCUT ×2 (03:27→14:25)
[2020-11-24] MEDS: fentaNYL 50 mcg/mL INJ 2mL IVP (04:53)
[2020-11-24 04:54] LABS: ABG PCO2 35.4 mmHg (35-45); ABG PH Result 7.47 (7.35-7.45); Arterial Blood Gas Hematocrit 28.5 % (37-47); Base Excess ABG 2.2 mmol/L (-2.0-2.0); Blood Gas Sample Type Arterial; HCO3 ABG 25.8 mmol/L (22-26); PO2 ABG 85.4 mmHg (80.0-100.0)
[2020-11-24 04:56] LABS: Blood Gas Operator Identificat HARKR; Blood Gas Sample Site Brachial, left; Blood Gas Tidal Volume 0.38; Fractionated Inspired Oxygen 0.3 %; Oxygen Device VENT
[2020-11-24 04:57] LABS: Basophils % 0.3 %; Eosinophils # 0.4 10^3/uL (0.0-0.8); Eosinophils % 2.6 %; Hematocrit 28.8 % (37.0-47.0); Hemoglobin 8.9 g/dL (11.5-15.3); Lymphocytes # 1.5 10^3/uL (0.8-4.8); Lymphocytes % 9.9 %; Mean Corpuscular HGB Conc 30.9 g/dL (30.0-36.0); Mean Corpuscular Hemoglobin 30.6 pg (28.0-34.0); Mean Platelet Volume 10.7 fL (7.4-10.4); Monocytes # 1.3 10^3/uL (0.2-0.9); Monocytes % 8.2 %; Neutrophils # 11.27 10^3/uL (1.8-7.7); Neutrophils % 72.4 %; Nucleated Red Blood Cells % 0.2 %; Platelet Count 82 10^3/cmm (130-400); Red Blood Count 2.91 10^6/uL (4.1-5.3); Red Cell Distribution Width 15.1 % (12.1-15.1); White Blood Count 15.5 10^3/uL (4.0-10.0)
[2020-11-24] MEDS: PrismaSol BGK 4/2.5 - 5,000 mL Bag 5000 ML CRRT ×10 (05:04→19:52)
[2020-11-24 05:13] LABS: Alanine Aminotransferase 43 U/L (0-33); Albumin Level 1.5 g/dL (3.5-5.2); Alkaline Phosphatase 123 IU/L (35-105); Anion Gap 12.2 (5-19); Aspartate Amino Transferase 137 U/L (0-32); Blood Urea Nitrogen 13 mg/dL (8-23); Calcium 7.1 mg/dL (8.5-10.5); Carbon Dioxide 25 mmol/L (22-29); Chloride 99 mmol/L (98-107); Globulin 2.3 g/dL (1.3-4.6); Glucose 182 mg/dL (65-115); Magnesium 2.2 mg/dL (1.7-2.3); Osmolality Calculated 279 mOsm/kg (285-295); Phosphorus 1.5 mg/dL (2.5-4.5); Potassium 4.2 mmol/L (3.5-5.1); Sodium 132 mmol/L (136-145); Total Bilirubin 0.6 mg/dL (0.15-1.2); Total Protein 3.8 g/dL (6.6-8.7)
[2020-11-24 05:21] LABS: Slide Review Slide Review Perform
[2020-11-24] MEDS: levothyroxine 150 mcg Tablet OG-TUBE (06:20)
--- NOTE | 2020-11-24 07:00 | XRR_ITS ---
PROCEDURE INFORMATION: Exam: XR Chest Exam date and time: 11/24/2020 7:00 AM Age: 85 years old Clinical indication: Shortness of breath; Prior surgery; Surgery type: Open heart; Patient HX: Resp failure. Intubated. TECHNIQUE: Imaging protocol: XR of the chest. Views: 1 view. COMPARISON: [place] XR chest 1V portable [id number] 11/23/2020 5:29 AM FINDINGS: Tubes, catheters and devices: Left upper extremity catheter terminates in the SVC. Double lumen right central catheter projects over the SVC. Endotracheal tube projects above the level of the joo. NG tube courses below the diaphragm with nonvisualization of the tip. Lungs: Perihilar and lower lobe opacities which may be seen with atelectasis or pneumonia. Pleural spaces: Bilateral pleural effusions, slightly increased. Heart/Mediastinum: Cardiomediastinal silhouette is stable. Bones/joints: Previous median sternotomy. XR/XR chest 1V portable [id number] IMPRESSION: Perihilar and lower lobe opacities which may be seen with atelectasis or pneumonia. Bilateral pleural effusions, slightly increased.
[2020-11-24 07:26] LABS: Glucose Point of Care 207 mg/dL (70-110)
[2020-11-24] MEDS: pantoprazole 40 mg SDV IVP ×2 (07:50→20:17)
--- NOTE | 2020-11-24 11:11 | P.PN_ITS ---
Subjective Subjective: Interval history: Ms Mena is seen and examined at bedside via telemedicine today. Situation very similar to yesterday's evalaution. CRRT is currently running, going well. No clotting episodes overnight. Currently not on regional anticoagulation. Ultrafiltration being tolerated at just 50mL/hr. She remains in net even balance this morning. CRRT parameters are reviewed. Vent parameters are also reviewed, currently FiO2 30% and PEEP of 6. She has mild global anasarca. Neurologically she is currently sedated and vented. Vitals/I&O/Wt Last Vital Signs Temp 97.8 F 11/24/20 11:00 Pulse 115 H 11/24/20 11:00 Resp 16 11/24/20 11:00 BP 104/50 11/24/20 11:00 Pulse Ox 98 11/24/20 11:00 11/23/20 11/24/20 11/24/20 22:59 06:59 14:59 Intake Total 1131.3529 / 4039.3529 260.401 / 4299.7539 588.95 / 588.95 Output Total 111 / 282 595 / 877 685 / 685 Balance 1020.3529 / 3757.3529 -334.599 / 3422.7539 -96.05 / -96.05 Weight last 48 hrs Weight 98.883 kg Weight 95.51 kg Weight 95.51 kg Physical Exam Narrative: EXAM NARRATIVE: Constitutional: Sedated and vented HEENT: Wet mucosa, no jvp, non icteric Lungs: Bilaterally clear without discernible wheeze, rales in all lung zones CVS: S1 S2, no murmurs Abdo: Soft, surgical dressing Ext 4: 2-3+ edema, peripheral perfusion with no cyanosis Neurological: Sedated Urinary Catheter Management^: Wright: Cath Placed During This Visit: yes Reason for Continuing Indwelling Catheter: Accurate Measurement of Urinary Output in Critically Ill Patients Urinary Catheter Date of Insertion: 11/20/20 Urinary Catheter Time of Insertion: 08:00 Data : 11/24/20 04:35 11/24/20 04:35 Micro: Microbiology 11/20/20 07:15 Blood Culture - Preliminary Blood Bacillus sp not b. anthracis A&P Additional A&P Information 1. ESRD Continue CRRT Blood flow prescribed 200, reduce to 150 given high AP pressures We will continue to use PrismaSol 4K/2.5Ca Pre/intra/post 1000/1000/1000 Continue to hold regional anticoagulation Ultrafiltration net even/slightly negative if this can be achieved given fragile hemodynamics Dose medication for GFR less than 15 on CRRT 2. Chemistry Relatively well balanced, of note mild hyponatremia, noncritical aberration. Close monitoring on CRRT; Q12 CMP 3. VDRF Management per ICU team, currently sedated, sedation vacation, hopefully can be weaned in the next few days 4. S/p gastric perforation in the antrum on the anterior wall Postop day [address] Cohen; general surgery Continue broad-spectrum antibiotics ANA PAULA drain noted iv PPI Aakash Gutierrez MD Nephrology [phone] Patient seen and examined via telemedicine, with the assistance of the bedside RN > 25 min spent in evaluation and mgmt of patient Attestations Medical Necessity Statement*: eval for CRRT mgmt Coding Level of Care Code Acute Front Elevator Operator for Shanelleg Dennise
[2020-11-24 12:07] LABS: Glucose Point of Care 167 mg/dL (70-110)
[2020-11-24] MEDS: vancomycin 1,000 MG in sodium chloride 0.9% 250 ML 250 MG IV (12:54)
--- NOTE | 2020-11-24 14:15 | P.PN_ITS ---
Subjective Subjective: Interval history: Patient is continued to remain critically ill on the ventilator on pressors Vitals/I&O/Wt Last Vital Signs Temp 97.8 F 11/24/20 13:00 Pulse 88 11/24/20 13:00 Resp 17 11/24/20 13:00 BP 105/46 11/24/20 13:00 Pulse Ox 97 11/24/20 13:00 11/23/20 11/24/20 11/24/20 22:59 06:59 14:59 Intake Total 1131.3529 / 4299.7539 260.401 / 4299.7539 588.95 / 588.95 Output Total 111 / 877 595 / 877 720 / 720 Balance 1020.3529 / 3422.7539 -334.599 / 3422.7539 -131.05 / -131.05 Weight last 48 hrs Weight 218 lb Weight 210 lb 9 oz Weight 210 lb 9 oz Physical Exam Narrative: EXAM NARRATIVE: Abdomen: Soft, incision clean dry and intact, ANA PAULA drain output serosanguineous, NG tube had 600 cc of bilious output with the patient was turned Urinary Catheter Management^: Wright: Cath Placed During This Visit: yes Reason for Continuing Indwelling Catheter: Accurate Measurement of Urinary Output in Critically Ill Patients Urinary Catheter Date of Insertion: 11/20/20 Urinary Catheter Time of Insertion: 08:00 Data : 11/24/20 04:35 11/24/20 04:35 Micro: Microbiology 11/20/20 07:15 Blood Culture - Preliminary Blood Bacillus sp not b. anthracis A&P Assessment and plan (1) S/P exploratory laparotomy: Status post ex lap for gastric perforation, currently on pressors, intubated on CVVHD ANA PAULA drain output is serosanguineous Continue NG tube to LIS IV Protonix Continue IV imipenem Medical management as per hospitalist service Status: Acute Attestations Medical Necessity Statement*: As per primary Coding Level of Care Code Acute Production Support Developer for Shilpa Bowden Diagnoses S/P exploratory laparotomy Z98.890
--- NOTE | 2020-11-24 15:45 | P.PN_ITS ---
Subjective Subjective: Interval history: Clinically unchanged overnight. Patient was maintained on CRRT. Addition was requiring Levophed. Did not have any fever. Does open eyes. Minimal to no urine output overnight. Medications: Reviewed: Yes Vitals/I&O/Wt Last Vital Signs Temp 97.9 F 11/24/20 15:00 Pulse 104 H 11/24/20 15:00 Resp 16 11/24/20 15:00 BP 108/76 11/24/20 15:00 Pulse Ox 96 11/24/20 15:00 11/24/20 11/24/20 11/24/20 06:59 14:59 22:59 Intake Total 260.401 / 4299.7539 588.95 / 588.95 350 / 938.95 Output Total 595 / 877 720 / 720 Balance -334.599 / 3422.7539 -131.05 / -131.05 350 / 218.95 Weight last 48 hrs Weight 98.883 kg Weight 95.51 kg Weight 95.51 kg Physical Exam Narrative: EXAM NARRATIVE: General exam opens eyes spontaneously to sound , chronically ill-appearing HEENT: Endotracheal tube noted Neck is supple no lymphadenopathy or thyromegaly. Right chest tunneled dialysis catheter noted. Left subclavian central line noted Cardiovascular regular rate and rhythm, tachycardic, 2/6 systolic murmur Lungs clear no wheezing or crackles Abdomen. Bowel sounds are not heard. Hernia on the right side is larger but soft. Surgical dressing noted. Drain noted Wright Extremities no cyanosis clubbing. No edema Urinary Catheter Management^: Wright: Cath Placed During This Visit: yes Reason for Continuing Indwelling Catheter: Accurate Measurement of Urinary Output in Critically Ill Patients Urinary Catheter Date of Insertion: 11/20/20 Urinary Catheter Time of Insertion: 08:00 Data : 11/24/20 04:35 11/24/20 04:35 Micro: Microbiology 11/20/20 07:15 Blood Culture - Preliminary Blood Bacillus sp not b. anthracis A&P Assessment and plan (1) Septic shock: Continue imipenem as she is allergic to penicillin products Continue vancomycin pharmacy to dose 1 out of 4 bottles of blood culture from admission growing bacillus - likely contamination Continue pressors - Would add vasopressin, currenlty max on levophed Repeat culture if febrile CBC,bmp and procal in am May consider addition of antifungal coverage Status: Acute (2) Free intraperitoneal air: Postoperative day #4 status post abdominal exploration with patching of gastric perforation, Marcelo's patch Daily labs General surgery on board. Status: Acute (3) Gastrointestinal hemorrhage with hematemesis: Continue Protonix 40 mg twice daily Hemoglobin currently stable Status: Acute (4) End-stage renal disease on hemodialysis: Continue CRRT Neprhology on board Min u/o Status: Acute (5) Hypotension: Secondary to perforated viscus and septic shock Currently on norepinephrine and blood pressure appears to have stabilized somewhat. Will wean norepinephrine as tolerated. Status: Acute (6) Aortic valve stenosis, nonrheumatic: Patient has refused evaluation for TAVR Status: Acute (7) Atherosclerosis of coronary artery of [place] heart without angina pectoris: No chest discomfort Resume aspirin when safe to do so. Status: Acute Qualifiers: Coronary Disease-Associated Artery/Lesion type: [place] artery Qualified Code(s): I25.10 - Atherosclerotic heart disease of [place] coronary artery without angina pectoris (8) DM type 2 (diabetes mellitus, type 2): Sliding scale insulin N.p.o. status currently Status: Acute (9) CHF (congestive heart failure): FiO2 requirement now down to 30% Chest x-ray is consistent with some bilateral pleural effusions and pulmonary congestion as expected with resuscitation and sepsis. CRRT to be tried today. Not a candidate for IV diuretics. Status: Acute (10) CVA (cerebral vascular accident): Resume aspirin when possible Status: Acute Additional A&P Information Respiratory failure. Currently on mechanical ventilation at minimal settings. FiO2 30% if she improves neurologically consider extubation. Will attempt weaning trial Chest xray and abg in am Mild transaminitis. Improving. Likely secondary to hypotension shock liver Hypomagnesemia. Recheck and replace as needed Code status - Limited as noted. DVT ppx - Heparin Attestations Medical Necessity Statement*: Require further hospitalizationFor management of septic shock with multiorgan failure and perforated viscus status post surgery. Time Spent in Patient Care: Greater than 35 minutes (>than 50% of time spent in counselling and/or direct pt care on unit) . Critical Care Time: Critical Care Time (min): 45 Coding Level of Care Code Acute Sterile Processing Tech for g Fwd Diagnoses Septic shock A41.9; R65.21 Free intraperitoneal air K66.8 Gastrointestinal hemorrhage with hematemesis K92.0 End-stage renal disease on hemodialysis N18.6; Z99.2 Hypotension I95.9 Aortic valve stenosis, nonrheumatic I35.0 Atherosclerosis of coronary artery of [place] heart without angina pectoris I25.10 Coronary Disease-Associated Artery/Lesion type: [place] artery DM type 2 (diabetes mellitus, type 2) E11.9 CHF (congestive heart failure) I50.9 CVA (cerebral vascular accident) I63.9
[2020-11-24 16:52] LABS: Albumin Level 1.4 g/dL (3.5-5.2); Anion Gap 11.1 (5-19); Blood Urea Nitrogen 10 mg/dL (8-23); Calcium 7.2 mg/dL (8.5-10.5); Carbon Dioxide 26 mmol/L (22-29); Chloride 99 mmol/L (98-107); Glucose 198 mg/dL (65-115); Magnesium 2.2 mg/dL (1.7-2.3); Phosphorus 1.3 mg/dL (2.5-4.5); Potassium 4.1 mmol/L (3.5-5.1); Sodium 132 mmol/L (136-145)
[2020-11-24 17:15] LABS: Glucose Point of Care 209 mg/dL (70-110)
--- NOTE | 2020-11-24 18:34 | PC.NURSE ---
Shift summary Pt has remained unchanged throughout the shift. She does flutter her eyes open and is moving her left hand. CRRT is still going. Family has been updated throughout the shift.
[2020-11-24 23:38] LABS: Glucose Point of Care 160 mg/dL (70-110)
[2020-11-25] VITALS (91 sets, daily range): BP systolic 81–138; BP diastolic 30–75; PULSE 77–100; RESP 12–20; TEMP 34.6–36.4; O2SAT 96–100
[2020-11-25] MEDS: PrismaSol BGK 4/2.5 - 5,000 mL Bag 5000 ML CRRT ×9 (00:26→22:07)
[2020-11-25] MEDS: norepinephrine 8 MG in dextrose 5 % 500 ML 76.2 MG IV (01:25)
[2020-11-25] MEDS: heparin 5,000 unit/mL INJ 1 mL 5000 UNIT SUBCUT ×2 (02:10→15:32)
[2020-11-25 04:38] LABS: Basophils % 0.2 %; Eosinophils # 0.4 10^3/uL (0.0-0.8); Hematocrit 27.1 % (37.0-47.0); Hemoglobin 8.6 g/dL (11.5-15.3); Lymphocytes # 1.9 10^3/uL (0.8-4.8); Lymphocytes % 10.2 %; Mean Corpuscular HGB Conc 31.7 g/dL (30.0-36.0); Mean Corpuscular Hemoglobin 31.4 pg (28.0-34.0); Mean Corpuscular Volume 98.9 fL (81-99); Mean Platelet Volume 11.4 fL (7.4-10.4); Monocytes # 1.3 10^3/uL (0.2-0.9); Monocytes % 7.1 %; Neutrophils # 12.48 10^3/uL (1.8-7.7); Nucleated Red Blood Cells % 0.2 %; Platelet Count 68 10^3/cmm (130-400); Red Blood Count 2.74 10^6/uL (4.1-5.3); Red Cell Distribution Width 15.1 % (12.1-15.1); White Blood Count 18.9 10^3/uL (4.0-10.0)
[2020-11-25 04:44] LABS: Neutrophils % 80.5 %
[2020-11-25 04:56] LABS: Alanine Aminotransferase 43 U/L (0-33); Albumin Level 1.5 g/dL (3.5-5.2); Alkaline Phosphatase 135 IU/L (35-105); Aspartate Amino Transferase 129 U/L (0-32); Blood Urea Nitrogen 9 mg/dL (8-23); Carbon Dioxide 27 mmol/L (22-29); Chloride 100 mmol/L (98-107); Globulin 2.3 g/dL (1.3-4.6); Glucose 181 mg/dL (65-115); Magnesium 2.2 mg/dL (1.7-2.3); Osmolality Calculated 277 mOsm/kg (285-295); Phosphorus 1.3 mg/dL (2.5-4.5); Sodium 132 mmol/L (136-145); Total Bilirubin 0.7 mg/dL (0.15-1.2); Total Protein 3.8 g/dL (6.6-8.7)
[2020-11-25 05:45] LABS: ABG PCO2 36.1 mmHg (35-45); ABG PH Result 7.48 (7.35-7.45); Arterial Blood Gas Hematocrit 33.2 % (37-47); Base Excess ABG 3.2 mmol/L (-2.0-2.0); Blood Gas Allen Test Pos; Blood Gas Sample Type Arterial; HCO3 ABG 26.8 mmol/L (22-26); PO2 ABG 93.3 mmHg (80.0-100.0)
[2020-11-25 05:47] LABS: Blood Gas Operator Identificat JB; Blood Gas Sample Site Radial, right; Blood Gas Tidal Volume 0.38; Oxygen Device VENT
[2020-11-25] MEDS: levothyroxine 150 mcg Tablet OG-TUBE (05:53)
[2020-11-25] MEDS: pantoprazole 40 mg SDV IVP ×2 (06:31→19:20)
[2020-11-25] MEDS: norepinephrine 8 MG in dextrose 5 % 500 ML 72.39 MG IV (08:00)
[2020-11-25 09:34] LABS: Glucose Point of Care 158 mg/dL (70-110)
--- NOTE | 2020-11-25 09:34 | PM.PN ---
Subjective Subjective: Interval history: Clinically unchanged overnight. Patient was maintained on CRRT. Continues to be on pressors, does not really follow commands, had a CT head today Medications: Reviewed: Yes Vitals/I&O/Wt Last Vital Signs Temp 97.6 F 11/25/20 05:30 Pulse 91 11/25/20 06:15 Resp 16 11/25/20 07:46 BP 124/43 11/25/20 06:15 Pulse Ox 97 11/25/20 07:46 11/24/20 11/25/20 11/25/20 22:59 06:59 14:59 Intake Total 3208 / 4304.95 508 / 4304.95 Output Total 690 / 1410 Balance 2518 / 2894.95 508 / 2894.95 Weight last 48 hrs Weight 219 lb Weight 218 lb Physical Exam Narrative: EXAM NARRATIVE: Abdomen: Soft, incision clean dry and intact, ANA PAULA drain output serosanguineous, NG tube to low intermittent suction Urinary Catheter Management^: Wright: Cath Placed During This Visit: yes Reason for Continuing Indwelling Catheter: Accurate Measurement of Urinary Output in Critically Ill Patients Urinary Catheter Date of Insertion: 11/20/20 Urinary Catheter Time of Insertion: 08:00 Data : 11/25/20 04:15 11/25/20 04:15 Micro: Microbiology 11/20/20 07:15 Blood Culture - Final Blood Bacillus sp not b. anthracis 11/20/20 07:15 Blood Culture - Final Blood NO GROWTH AFTER 5 DAYS A&P Assessment and plan (1) S/P exploratory laparotomy: Status post ex lap for gastric perforation, currently on pressors, intubated on CVVHD ANA PAULA drain output is serosanguineous, continue to bulb suction Continue NG tube to LIS IV Protonix Continue IV imipenem and vancomycin start TPN as patient has been n.p.o. for 5 days. Start trophic feeds at 10 cc/h since gastric output was only 250 cc yesterday Medical management as per hospitalist service Status: Acute Attestations Medical Necessity Statement*: As per primary Coding Level of Care Code Acute Audio Visual Specialist for Chg Fwd Diagnoses S/P exploratory laparotomy Z98.890
--- NOTE | 2020-11-25 09:54 | PM.PN ---
Subjective Subjective: Interval history: Ms Mena is seen and examined at bedside via telemedicine today. Situation very similar to yesterday's evaluation, making minimal progress since Thursday CRRT is currently running, going well. No clotting episodes overnight. Currently not on regional anticoagulation. Ultrafiltration being tolerated at just 50mL/hr. She remains in net even balance this morning (although EMR not reflecting this). CRRT parameters are reviewed. Vent parameters are also reviewed, currently FiO2 30% and PEEP of 6. She has mild global anasarca. Neurologically she is currently sedated and vented. Vitals/I&O/Wt Last Vital Signs Temp 97.6 F 11/25/20 05:30 Pulse 91 11/25/20 06:15 Resp 16 11/25/20 07:46 BP 124/43 11/25/20 06:15 Pulse Ox 97 11/25/20 07:46 11/24/20 11/25/20 11/25/20 22:59 06:59 14:59 Intake Total 3208 / 3796.95 608 / 4404.95 Output Total 690 / 1410 Balance 2518 / 2386.95 608 / 2994.95 Weight last 48 hrs Weight 99.337 kg Weight 98.883 kg Physical Exam Narrative: EXAM NARRATIVE: Constitutional: Sedated and vented HEENT: Wet mucosa, no jvp, non icteric Lungs: Bilaterally clear without discernible wheeze, rales in all lung zones CVS: S1 S2, no murmurs Abdo: Soft, surgical dressing Ext 4: 2-3+ edema, peripheral perfusion with no cyanosis Neurological: Sedated Urinary Catheter Management^: Wright: Cath Placed During This Visit: yes Reason for Continuing Indwelling Catheter: Accurate Measurement of Urinary Output in Critically Ill Patients Urinary Catheter Date of Insertion: 11/20/20 Urinary Catheter Time of Insertion: 08:00 Data : 11/25/20 04:15 11/25/20 04:15 Micro: Microbiology 11/20/20 07:15 Blood Culture - Final Blood Bacillus sp not b. anthracis 11/20/20 07:15 Blood Culture - Final Blood NO GROWTH AFTER 5 DAYS A&P Additional A&P Information 1. ESRD Continue CRRT Blood flow prescribed 200, reduce to 150 given high AP pressures We will continue to use PrismaSol 4K/2.5Ca Pre/intra/post 1000/1000/1000 Continue to hold regional anticoagulation Ultrafiltration net even/slightly negative if this can be achieved given fragile hemodynamics Dose medication for GFR less than 15 on CRRT 2. Chemistry Relatively well balanced, of note mild hyponatremia, noncritical aberration. K-Phos replacement prescribed Close monitoring on CRRT; Q12 CMP 3. VDRF Management per ICU team, currently sedated, sedation vacation, hopefully can be weaned in the next few days 4. S/p gastric perforation in the antrum on the anterior wall Postop day [address] Cohen; general surgery Continue broad-spectrum antibiotics ANA PAULA drain noted iv PPI 5. Dispo D/w Dr Plata; minimal progression over the last few days. If she continues to poorly, with high pressor need, may need to consider terminal extubation. Ongoing plans of care discussions with family members. Aakash Gutierrez MD Nephrology [phone] Patient seen and examined via telemedicine, with the assistance of the bedside RN > 25 min spent in evaluation and mgmt of patient Attestations Medical Necessity Statement*: ESRD mgmt Coding Level of Care Code Acute Electronic Development Technician for Shilpa Bowden
--- NOTE | 2020-11-25 10:09 | PC.NURSE ---
PT rectal temp is 94.3. Therma care on pt. Set at 100.0. Machine will not advance to high(110), blood warmer in place on CRRT machine. set at 42.9. Dr. Plata notified.
--- NOTE | 2020-11-25 10:23 | PC.NURSE ---
Rolled pt over to check sore on coccyx and get rectal temp. CRRT machine alarmed and stopped treatment. Temp was taken and do to the alarm and stop of diaylysis, dressing was not applied to coccyx not was time taken to measure. pillow placed to put pt on her right side.
--- NOTE | 2020-11-25 10:27 | PC.NURSE ---
Pt closed her eyes when staff asked her to and slight squeeze of the hand when instructed to do so.
--- NOTE | 2020-11-25 10:30 | P.PN_ITS ---
Subjective Subjective: Interval history: Clinically unchanged overnight. Patient was on CRRT. Has not had a bowel movement. 400 cc of per from NG. Minimal urine output. Remained on Levophed. Was responsive to stimuli by opening eyes. Medications: Reviewed: Yes Vitals/I&O/Wt Last Vital Signs Temp 96.3 F L 11/26/20 00:00 Pulse 85 11/26/20 01:00 Resp 12 11/25/20 23:45 BP 106/53 11/26/20 01:00 Pulse Ox 100 11/26/20 01:00 11/25/20 11/25/20 11/26/20 14:59 22:59 06:59 Intake Total 1045.452 / 1045.452 362.941 / 1408.393 284.226 / 1692.619 Output Total 92 / 92 120 / 212 Balance 953.452 / 953.452 242.941 / 1196.393 284.226 / 1480.619 Weight last 48 hrs Weight 99.337 kg Weight 98.883 kg Physical Exam Narrative: EXAM NARRATIVE: General exam opens eyes spontaneously to sound , chronically ill-appearing HEENT: Endotracheal tube noted Neck is supple no lymphadenopathy or thyromegaly. Right chest tunneled dialysis catheter noted. Left subclavian central line noted Cardiovascular regular rate and rhythm, tachycardic, 2/6 systolic murmur Lungs clear no wheezing or crackles Abdomen. Bowel sounds are not heard. Hernia on the right side is larger but soft. Surgical dressing noted. Drain noted Wright Extremities no cyanosis clubbing. No edema Urinary Catheter Management^: Wright: Cath Placed During This Visit: yes Reason for Continuing Indwelling Catheter: Accurate Measurement of Urinary Output in Critically Ill Patients Urinary Catheter Date of Insertion: 11/20/20 Urinary Catheter Time of Insertion: 08:00 Data : 11/25/20 04:15 11/25/20 18:24 Micro: Microbiology 11/20/20 07:15 Blood Culture - Final Blood Bacillus sp not b. anthracis 11/20/20 07:15 Blood Culture - Final Blood NO GROWTH AFTER 5 DAYS A&P Assessment and plan (1) Septic shock: Continue imipenem as she is allergic to penicillin products Continue vancomycin pharmacy to dose 1 out of 4 bottles of blood culture from admission growing bacillus - likely contamination Continue pressors - Would consider adding vasopressin, currently on levophed at 18 Repeat culture if febrile CBC,bmp and procal in am May consider addition of antifungal coverage Status: Acute (2) Free intraperitoneal air: Postoperative day #5 status post abdominal exploration with patching of gastric perforation, Marcelo's patch Daily labs General surgery on board. NG tube - possible initiation of tube feeding. Status: Acute (3) Gastrointestinal hemorrhage with hematemesis: Continue Protonix 40 mg twice daily Hemoglobin currently stable Status: Acute (4) End-stage renal disease on hemodialysis: Continue CRRT Neprhology on board Min u/o Status: Acute (5) Hypotension: Secondary to perforated viscus and septic shock Currently on norepinephrine and blood pressure appears to have stabilized somewhat. Will wean norepinephrine as tolerated. Status: Acute (6) Aortic valve stenosis, nonrheumatic: Patient has refused evaluation for TAVR Status: Acute (7) Atherosclerosis of coronary artery of [place] heart without angina pectoris: No chest discomfort Resume aspirin when safe to do so. Status: Acute Qualifiers: Coronary Disease-Associated Artery/Lesion type: [place] artery Qualified Code(s): I25.10 - Atherosclerotic heart disease of [place] coronary artery without angina pectoris (8) DM type 2 (diabetes mellitus, type 2): Sliding scale insulin N.p.o. status currently Status: Acute (9) CHF (congestive heart failure): FiO2 requirement now down to 30% Chest x-ray is consistent with some bilateral pleural effusions and pulmonary congestion as expected with resuscitation and sepsis. CRRT to be tried today. Not a candidate for IV diuretics. Status: Acute (10) CVA (cerebral vascular accident): Resume aspirin when possible Status: Acute Additional A&P Information Respiratory failure. Currently on mechanical ventilation at minimal settings. FiO2 30% if she improves neurologically, Will attempt weaning trial once off pressors, not currently on sedation Mild transaminitis. Improving. Likely secondary to hypotension shock liver Hypomagnesemia. Recheck and replace as needed Code status - Limited as noted. DVT ppx - Heparin Prognosis - Poor, May need to consider hospice level of care Attestations Medical Necessity Statement*: Continue hospitalization for management of sepsis requiring IV pressors, IV antibiotics and renal failure requiring CRRT currently intubated on mechanical ventilation Time Spent in Patient Care: Greater than 35 minutes (>than 50% of time spent in counselling and/or direct pt care on unit) . Critical Care Time: Critical Care Time (min): 40 Coding Level of Care Code Acute Director Compensation for Chg Fwd Diagnoses Septic shock A41.9; R65.21 Free intraperitoneal air K66.8 Gastrointestinal hemorrhage with hematemesis K92.0 End-stage renal disease on hemodialysis N18.6; Z99.2 Hypotension I95.9 Aortic valve stenosis, nonrheumatic I35.0 Atherosclerosis of coronary artery of [place] heart without angina pectoris I25.10 Coronary Disease-Associated Artery/Lesion type: [place] artery DM type 2 (diabetes mellitus, type 2) E11.9 CHF (congestive heart failure) I50.9 CVA (cerebral vascular accident) I63.9
--- NOTE | 2020-11-25 11:12 | PC.NURSE ---
SCD machine not in place at this time, do to availability of machine. supervisor properties aware that one is needed.
[2020-11-25 11:38] LABS: Blood Gas Sample Site ARTERIAL
--- NOTE | 2020-11-25 11:38 | PC.NURSE ---
Dr. bowie in room assessing pt. Has daughter's phone number and going to call her.
[2020-11-25 12:37] LABS: Glucose Point of Care 194 mg/dL (70-110)
--- NOTE | 2020-11-25 14:27 | PC.SOCIAL ---
IMM Not Updated Pg. 2 of IMM not given at this time as patient remains intubated.
--- NOTE | 2020-11-25 14:29 | PC.NURSE ---
Dr. Cohen notified regarding bowel sounds. States to go ahead and start tube feeding at 10ml/hr and see how she tolerates. Currently there are no tubefeed pumps available. supervisor furnace room notified, she state she will look for one on another floor.
--- NOTE | 2020-11-25 15:44 | CTR_ITS ---
PROCEDURE INFORMATION: Exam: CT Head Without Contrast Exam date and time: 11/25/2020 3:44 PM Age: 85 years old Clinical indication: Altered mental status/memory loss; Additional info: Mental status change, icu will call during break in dialysis TECHNIQUE: Imaging protocol: Computed tomography of the head without contrast. Radiation optimization: All CT scans at this facility use at least one of these dose optimization techniques: automated exposure control; mA and/or kV adjustment per patient size (includes targeted exams where dose is matched to clinical indication); or iterative reconstruction. COMPARISON: No relevant prior studies available. RADIATION DOSE METRICS: Total DLP (mGy-cm): 596.98 FINDINGS: Brain: Low-attenuation changes present in both occipital lobes, more so on the right, which can be ischemic in etiology though age is difficult to determine. Deep white matter low-attenuation lesions in the left cerebral hemisphere bridging the frontoparietal junction which could be ischemic in etiology, age uncertain. There is encephalomalacia in the right cerebellar hemisphere compatible with a prior infarct. Chronic lacunar infarct posterior to the head of the caudate nucleus on the right. Mild diffuse brain atrophy. No sign of acute intracranial hemorrhage. Cerebral ventricles: The visualized paranasal sinuses are aerated. Paranasal sinuses: The paranasal sinuses are aerated. Mastoid air cells: Mild inferior right mastoid air cell effusions. The left mastoid air cells are aerated. Vasculature: Calcified plaque in the cavernous and supraclinoid segments of both internal carotid arteries as well as the V4 segments of both vertebral arteries.There is medial calcinosis affecting multiple superficial arterial branches, a finding which can be seen in patients with renal failure and/or diabetes mellitus. Bones/joints: No calvarial fracture. There is hyperostosis frontalis interna. Soft tissues: No acute soft tissue abnormality. CT/CT head wo con* [id number] IMPRESSION: 1. Multifocal, bilateral cerebral low-attenuation foci which could be ischemic in etiology though age is uncertain. If MRI is not possible for further evaluation, consider short-term CT follow-up. 2. Chronic appearing infarcts involving the right cerebellar hemisphere and posterior to the right head of caudate nucleus. Radiation Dose CTDIVOL = (mGy): DLP = 596.98 (mGy-cm)
[2020-11-25] MEDS: norepinephrine 8 MG in dextrose 5 % 500 ML 57.15 MG IV (17:03)
[2020-11-25 18:54] LABS: Blood Urea Nitrogen 8 mg/dL (8-23); Calcium 6.7 mg/dL (8.5-10.5); Carbon Dioxide 26 mmol/L (22-29); Chloride 101 mmol/L (98-107); Creatinine Clr Calc Pharmacy 80.6251; Glucose 130 mg/dL (65-115); Magnesium 2.2 mg/dL (1.7-2.3); Osmolality Calculated 274 mOsm/kg (285-295); Phosphorus 1.3 mg/dL (2.5-4.5); Sodium 132 mmol/L (136-145)
[2020-11-25 18:59] LABS: Anion Gap 9.5 (5-19)
[2020-11-25 19:00] LABS: Potassium 4.5 mmol/L (3.5-5.1)
[2020-11-25 20:00] LABS: Glucose Point of Care 131 mg/dL (70-110)
[2020-11-25 20:19] LABS: Glucose Point of Care 157 mg/dL (70-110)
--- NOTE | 2020-11-25 23:47 | PC.NURSE ---
Tube feeding initiated despite no bowel sounds per orders. Ran for 1 hour at 10mL/hr, then held for 30 minutes, aspirated 60mL of feeding/stomach bile. Stopped tube feeding until further communication with doctor Cohen. Continue care.
[2020-11-26] VITALS (101 sets, daily range): BP systolic 57–154; BP diastolic 32–95; PULSE 74–101; RESP 10–30; TEMP 35.6–36.8; O2SAT 88–100
[2020-11-26] MEDS: heparin 5,000 unit/mL INJ 1 mL 5000 UNIT SUBCUT (02:10)
[2020-11-26] MEDS: norepinephrine 8 MG in dextrose 5 % 500 ML 53.34 MG IV (02:14)
[2020-11-26] MEDS: PrismaSol BGK 4/2.5 - 5,000 mL Bag 5000 ML CRRT ×2 (03:15)
[2020-11-26 03:42] LABS: Basophils % 0.2 %; Eosinophils # 0.3 10^3/uL (0.0-0.8); Eosinophils % 1.4 %; Hematocrit 27.7 % (37.0-47.0); Hemoglobin 8.3 g/dL (11.5-15.3); Lymphocytes # 2.1 10^3/uL (0.8-4.8); Lymphocytes % 10.1 %; Mean Corpuscular Hemoglobin 30.4 pg (28.0-34.0); Mean Corpuscular Volume 101.5 fL (81-99); Mean Platelet Volume 10.7 fL (7.4-10.4); Monocytes % 4.7 %; Neutrophils # 14.78 10^3/uL (1.8-7.7); Neutrophils % 69.7 %; Nucleated Red Blood Cells # 0.1 /100WBC; Nucleated Red Blood Cells % 0.2 %; Platelet Count 51 10^3/cmm (130-400); Red Blood Count 2.73 10^6/uL (4.1-5.3); Red Cell Distribution Width 15.5 % (12.1-15.1); White Blood Count 21.2 10^3/uL (4.0-10.0)
[2020-11-26 04:11] LABS: Alanine Aminotransferase 34 U/L (0-33); Albumin Level 1.5 g/dL (3.5-5.2); Alkaline Phosphatase 148 IU/L (35-105); Anion Gap 12.3 (5-19); Aspartate Amino Transferase 98 U/L (0-32); Blood Urea Nitrogen 7 mg/dL (8-23); Calcium 6.7 mg/dL (8.5-10.5); Carbon Dioxide 27 mmol/L (22-29); Chloride 102 mmol/L (98-107); Creatinine Clr Calc Pharmacy 80.6251; Globulin 2.2 g/dL (1.3-4.6); Glucose 129 mg/dL (65-115); Osmolality Calculated 284 mOsm/kg (285-295); Potassium 4.3 mmol/L (3.5-5.1); Sodium 137 mmol/L (136-145); Total Bilirubin 0.8 mg/dL (0.15-1.2); Total Protein 3.7 g/dL (6.6-8.7)
[2020-11-26 04:24] LABS: Slide Review Slide Review Perform
[2020-11-26] MEDS: levothyroxine 150 mcg Tablet OG-TUBE (05:09)
[2020-11-26] MEDS: pantoprazole 40 mg SDV IVP (06:30)
[2020-11-26 07:33] LABS: Glucose Point of Care 156 mg/dL (70-110)
--- NOTE | 2020-11-26 07:36 | PC.NURSE ---
Took over pt care Took over pt care from night nurse. Pt's MAP in the 30's, levophed increased to 30 (okayed with Dr Rosario). Pt still continued to have low MAP. Both this nurse and night nurse decided together that PT should be taken off CRRT. Pt's blood returned to her. MAP came to 66 5min after blood was returned. Levo down to 25. MAP is currently 76. Dr Rosario has assessed pt. She is able to open her eyes and move her left arm. We will be in contact with family.
[2020-11-26] MEDS: norepinephrine 8 MG in dextrose 5 % 500 ML 83.82 MG IV (08:07)
--- NOTE | 2020-11-26 08:28 | PC.NURSE ---
Phys notification Dr Gutierrez tele-neph has been notified of pt condition this morning and the stopping of CRRT.
--- NOTE | 2020-11-26 09:26 | PM.PN ---
Subjective Subjective: Interval history: Cindy has not received any sedation. She will open her eyes to verbal stimuli and appears to be looking left. Occasional spontaneous movement of the left upper extremity. Medications: Reviewed: Yes Vitals/I&O/Wt Last Vital Signs Temp 97.1 F L 11/26/20 08:00 Pulse 90 11/26/20 09:00 Resp 14 11/26/20 09:18 BP 119/73 11/26/20 09:00 Pulse Ox 100 11/26/20 09:18 11/25/20 11/26/20 11/26/20 22:59 06:59 14:59 Intake Total 362.941 / 1408.393 729.666 / 2138.059 223.317 / 223.317 Output Total 120 / 212 70 / 70 Balance 242.941 / 1196.393 729.666 / 1926.059 153.317 / 153.317 Weight last 48 hrs Weight 103.929 kg Weight 99.337 kg Physical Exam Narrative: EXAM NARRATIVE: General exam opens eyes spontaneously to sound HEENT: Endotracheal tube noted Neck is supple no lymphadenopathy or thyromegaly. Right chest tunneled dialysis catheter noted. Left subclavian central line noted Cardiovascular regular rate and rhythm, tachycardic, 2/6 systolic murmur Lungs clear no wheezing or crackles Abdomen. Bowel sounds are not heard. Hernia on the right side is larger but soft. Surgical dressing noted. Drain noted Wright Extremities no cyanosis clubbing. 2+ edema Neurologic: Spontaneously will move left upper extremity, opens eyes and looks left. Urinary Catheter Management^: Wright: Cath Placed During This Visit: yes Reason for Continuing Indwelling Catheter: Accurate Measurement of Urinary Output in Critically Ill Patients Urinary Catheter Date of Insertion: 11/20/20 Urinary Catheter Time of Insertion: 08:00 Data : 11/26/20 03:22 11/26/20 03:22 Micro: Microbiology 11/20/20 07:15 Blood Culture - Final Blood Bacillus sp not b. anthracis 11/20/20 07:15 Blood Culture - Final Blood NO GROWTH AFTER 5 DAYS A&P Assessment and plan (1) Septic shock: Continue imipenem as she is allergic to penicillin products Continue vancomycin pharmacy to dose White blood cell count continues to remain significantly elevated 1 out of 4 bottles of blood culture from admission growing bacillus Unable to wean pressors. Still on 20 mcg of norepinephrine Status: Acute (2) Free intraperitoneal air: Postoperative day #6 status post abdominal exploration with patching of gastric perforation, Marcelo's patch Daily labs General surgery on board. NG tube - possible initiation of tube feeding. Status: Acute (3) Gastrointestinal hemorrhage with hematemesis: Continue Protonix 40 mg twice daily Hemoglobin currently stable Status: Acute (4) End-stage renal disease on hemodialysis: CRRT discontinued this morning secondary to marked hypotension Neprhology on board Status: Acute (5) Hypotension: Secondary to perforated viscus and septic shock Currently on norepinephrine Status: Acute (6) Aortic valve stenosis, nonrheumatic: Patient has refused evaluation for TAVR Status: Acute (7) Atherosclerosis of coronary artery of [place] heart without angina pectoris: No chest discomfort Resume aspirin when safe to do so. Status: Acute Qualifiers: Coronary Disease-Associated Artery/Lesion type: [place] artery Qualified Code(s): I25.10 - Atherosclerotic heart disease of [place] coronary artery without angina pectoris (8) DM type 2 (diabetes mellitus, type 2): Sliding scale insulin N.p.o. status currently Status: Acute (9) CHF (congestive heart failure): Ventilator settings minimal Status: Acute (10) CVA (cerebral vascular accident): Resume aspirin when possible Patient neurologically looking to the left, only left upper extremity hand movement. CT head demonstrated multifocal low attention foci possible ischemic in etiology. Old infarcts noted. Clinically she appears to have had a significant CVA. Status: Acute Additional A&P Information Respiratory failure. Currently on mechanical ventilation at minimal settings. Secondary to neurologic status she has not been extubated. Thrombocytopenia, likely secondary to sepsis Mild transaminitis. Persistent and likely secondary to hypotension Hypomagnesemia. Supplemented Code status - Limited as noted. DVT ppx -discontinue heparin secondary to thrombocytopenia Prognosis poor with end-stage renal disease requiring hemodialysis, sepsis with persistent hypotension, clinical diagnosis of CVA, severe aortic stenosis. I discussed with family who is coming in. Attestations Medical Necessity Statement*: Needs continued hospital stay secondary to acute sepsis with hypotension requiring pressors Critical Care Time: The high probability of a clinically significant, sudden or life threatening deterioration of the patient's [pulmonary, renal, cardiovascular, neurologic] system(s) required my full and direct attention, intervention and personal management. The critical care time is as shown. This time is in addition to time spent performing any reported procedures but includes the following: [x] Data and vital sign review and interpretation [x] Patient assessment, examination and intervention [x] Documentation [x] Medication orders and management Critical Care Time (min): 32 Coding Level of Care Code Acute Senior Treasury Consultant for Chg Fwd Diagnoses Septic shock A41.9; R65.21 Free intraperitoneal air K66.8 Gastrointestinal hemorrhage with hematemesis K92.0 End-stage renal disease on hemodialysis N18.6; Z99.2 Hypotension I95.9 Aortic valve stenosis, nonrheumatic I35.0 Atherosclerosis of coronary artery of [place] heart without angina pectoris I25.10 Coronary Disease-Associated Artery/Lesion type: [place] artery DM type 2 (diabetes mellitus, type 2) E11.9 CHF (congestive heart failure) I50.9 CVA (cerebral vascular accident) I63.9
--- NOTE | 2020-11-26 10:45 | PC.NURSE ---
Extubate PT has been successfully extubated by RT. Pt placed on nasal cannula. NG tube is still in place. Her family is at her bedside. Dr Rosario has ordered pain and anxiety meds if needed.
--- NOTE | 2020-11-26 10:50 | PM.PN ---
Subjective Subjective: Interval history: I was contacted by the nurse this morning, due to unstable hemodynamics, CRRT was held in the early hours of this morning. Family members have now come to bedside with a plan to terminally extubate this morning. She is arousable. She does remain on vasopressor agents. Medications: Reviewed: Yes Medication Review Details: Current Medications Acetaminophen (Acetaminophen 325 Mg Tablet) 650 mg PO Q6H PRN PRN Reason: MILD PAIN Last Admin: 11/22/20 03:24 Dose: 650 mg Documented by: Dextrose (Dextrose 50% Syringe 50 Ml) 25 ml IVP ONCE PRN; Protocol PRN Reason: hypoglycemia protocol Dextrose (Dextrose 50% Syringe 50 Ml) 50 ml IVP PRN PRN; Protocol PRN Reason: hypoglycemia protocol Glucagon (Glucagon 1 Mg/Ml Inj 1 Ml) 1 mg IM ONCE PRN; Protocol PRN Reason: Adult Acute Hypoglycemia Prot. Imipenem/Cilastatin Sodium 250 (mg/ Sodium Chloride) 100 mls @ 200 mls/hr IV Q6H [facility]; Protocol Last Infusion: 11/22/20 03:32 Dose: Infused Documented by: Dextrose (D5w) 500 mls @ 50 mls/hr IV ONCE PRN; Protocol PRN Reason: Adult Acute Hypoglycemia Prot Propofol (Diprivan) 1,000 mg in 100 mls @ 0 mls/hr IV .Q0M [facility]; Protocol Fentanyl 1,000 mcg/ Sodium (Chloride) 100 mls @ 0 mls/hr IV .Q0M [facility]; Protocol Last Titration: 11/21/20 19:18 Dose: 0 mcg/hr, 0 mls/hr Documented by: Vancomycin HCl 1,000 mg/ (Sodium Chloride) 250 mls @ 250 mls/hr IV Q48H [facility] Last Infusion: 11/20/20 14:34 Dose: Infused Documented by: Albumin Human (Albumin) 12.5 gm in 50 mls @ 60 mls/hr IV PRN PRN PRN Reason: Hypotension and/or symptomatic Last Admin: 11/21/20 09:42 Dose: 60 mls/hr Documented by: Norepinephrine Bitartrate 8 mg (/ Dextrose) 508 mls @ 0 mls/hr IV .Q0M [facility]; Protocol Last Admin: 11/22/20 04:26 Dose: 20 mcg/min, 76.2 mls/hr Documented by: Potassium Phosphate 15 mmol/ (Sodium Chloride) 105 mls @ 47 mls/hr IV ONCE ONE Stop: 11/22/20 09:44 Insulin Aspart (Insulin Aspart 100 Unit/1 Ml) 0 unit SUBCUT WM&BEDTIME [facility]; Protocol Last Admin: 11/21/20 20:56 Dose: 4 unit Documented by: Levothyroxine Sodium (Levothyroxine 150 Mcg Tablet) 150 mcg OG-TUBE QAM [facility] Last Admin: 11/22/20 05:46 Dose: 150 mcg Documented by: Lorazepam (Lorazepam 2 Mg/Ml Inj 1 Ml) 0.5 mg IVP Q1H PRN PRN Reason: ANXIETY Morphine Sulfate (Morphine 4 Mg/Ml Sdv 1 Ml) 1 mg IVP Q1H PRN PRN Reason: SEVERE PAIN Ondansetron HCl (Ondansetron 2 Mg/Ml Sdv 2 Ml) 4 mg IVP Q6H PRN PRN Reason: NAUSEA AND VOMITING Pantoprazole Sodium (Pantoprazole 40 Mg Sdv) 40 mg IVP Q12H [facility] Last Admin: 11/21/20 19:29 Dose: 40 mg Documented by: Vitals/I&O/Wt Last Vital Signs Temp 97.3 F L 11/26/20 10:00 Pulse 90 11/26/20 10:00 Resp 18 11/26/20 10:00 BP 109/72 11/26/20 10:00 Pulse Ox 100 11/26/20 10:00 11/25/20 11/26/20 11/26/20 22:59 06:59 14:59 Intake Total 362.941 / 1408.393 729.666 / 2138.059 223.317 / 223.317 Output Total 120 / 212 70 / 70 Balance 242.941 / 1196.393 729.666 / 1926.059 153.317 / 153.317 Weight last 48 hrs Weight 103.929 kg Weight 99.337 kg Physical Exam Narrative: EXAM NARRATIVE: Constitutional: Sedated and vented HEENT: Wet mucosa, no jvp, non icteric Lungs: Bilaterally clear without discernible wheeze, rales in all lung zones CVS: S1 S2, no murmurs Abdo: Soft, surgical dressing Ext 4: 2-3+ edema, peripheral perfusion with no cyanosis Neurological: Sedated Urinary Catheter Management^: Wright: Cath Placed During This Visit: yes Reason for Continuing Indwelling Catheter: Accurate Measurement of Urinary Output in Critically Ill Patients Urinary Catheter Date of Insertion: 11/20/20 Urinary Catheter Time of Insertion: 08:00 Data : 11/26/20 03:22 11/26/20 03:22 Micro: Microbiology 11/20/20 07:15 Blood Culture - Final Blood Bacillus sp not b. anthracis 11/20/20 07:15 Blood Culture - Final Blood NO GROWTH AFTER 5 DAYS A&P Additional A&P Information 1. ESRD Renal replacement therapy now on hold given to minimize sedation. I will continue to follow the story closely to provide dialysis should she survive over the next 24-48 hours. No acute indication for renal replacement therapy this morning. Dose medication for GFR less than 15 2. Chemistry Well-balanced following effective CRRT 3. VDRF Discussed with RN, for terminal extubation this morning with no plans to reintubate. 4. S/p gastric perforation in the antrum on the anterior wall Postop day [address] Cohen; general surgery Continue broad-spectrum antibiotics ANA PAULA drain noted iv PPI Aakash Gutierrez MD Nephrology [phone] Patient seen and examined via telemedicine, with the assistance of the bedside RN > 25 min spent in evaluation and mgmt of patient Attestations Medical Necessity Statement*: mgmt of ESRD Coding Level of Care Code Acute Correctional Casework Specialist for Shilpa Bowden
--- NOTE | 2020-11-26 11:24 | PC.NURSE ---
NG tube NG tube has been pulled per Dr Rosario's orders.
--- NOTE | 2020-11-26 17:33 | P.PN_ITS ---
Subjective Subjective: Interval history: Patient continues to be critically ill, on ventilator, does not follow much commands, on pressors, not tolerating CRRT. She did not tolerate trophic tube feeds Vitals/I&O/Wt Last Vital Signs Temp 98.3 F 11/26/20 17:00 Pulse 83 11/26/20 17:00 Resp 17 11/26/20 17:00 BP 57/41 11/26/20 17:00 Pulse Ox 88 L 11/26/20 17:00 11/26/20 11/26/20 11/26/20 06:59 14:59 22:59 Intake Total 729.666 / 2138.059 474.777 / 474.777 0 / 474.777 Output Total 260 / 380 120 / 380 Balance 729.666 / 1926.059 214.777 / 94.777 -120 / 94.777 Weight last 48 hrs Weight 229 lb 2 oz Weight 219 lb Physical Exam Narrative: EXAM NARRATIVE: abdomen: Incision clean dry and intact, ANA PAULA drain output is serosanguineous Urinary Catheter Management^: Wright: Cath Placed During This Visit: yes Reason for Continuing Indwelling Catheter: Accurate Measurement of Urinary Output in Critically Ill Patients Urinary Catheter Date of Insertion: 11/20/20 Urinary Catheter Time of Insertion: 08:00 Data : 11/26/20 03:22 11/26/20 03:22 A&P Assessment and plan (1) S/P exploratory laparotomy: Status post ex lap for gastric perforation, currently on pressors, intubated on CVVHD ANA PAULA drain output is serosanguineous, continue to bulb suction Plan for discussion with family about comfort care measures later today Status: Acute Attestations Medical Necessity Statement*: as per primary Coding Level of Care Code Acute Poolroom Table Attendant for Shanelleg Fwd Diagnoses S/P exploratory laparotomy Z98.890
[2020-11-27] VITALS (19 sets, daily range): PULSE 76–88; RESP 12–21
[2020-11-27] MEDS: morphine 4 mg/mL SDV 1 mL IVP (04:40)
--- NOTE | 2020-11-27 05:01 | PC.NURSE ---
: Time of 045. Notified supervisor nut processing and Dr. Groves. Also called family to notify them. [facility] is where arrangements have been made.
--- NOTE | 2020-11-27 05:23 | PC.NURSE ---
Pt not candidate for donation per Nesha, coordinator, for [facility] or [facility]. Corey Melchor contacted for arrangements.
--- NOTE | 2020-11-27 13:43 | P.DES_ITS ---
Discharge Providers DDS Date of Admission: 11/20/20 10:58 Date Summary Completed: 11/27/20 Attending Provider at Admission: Ishan Cohen MD Time of : 04:55 Attending Provider at Discharge: Bubba Rosario MD Primary Care Provider: DO ROBERT Watt Diagnoses Hospital Diagnoses (1) S/P exploratory laparotomy: Problem details: Repair of gastric perforation Reason for Visit Reason for Visit: vomiting blood Summary Date and Time of Date of : 11/27/20 Time of : 04:55 Summary Summary: Cindy was an 85-year-old white female with end-stage renal disease on hemodialysis and severe aortic stenosis for which surgical evaluation was refused who presented to the emergency department with evidence of sepsis and abdominal pain. Free air was noted on imaging. Although she was allow natural , she elected for surgical repair and subsequent treatment to see if she could maintain her current quality of life. Surgery demonstrated a perforated stomach for which a Marcelo's patch was performed on November 20. Significant spillage of fluid into her peritoneum was noted and lavage occurred for this. She returned to the ICU and required significant doses of norepinephrine. She received broad-spectrum antibiotics. She came back from the operating room intubated. Surgery as well as nephrology was on board. Dialysis was attempted the next day following surgery but aborted secondary to significant hypotension. Secondary to this CRRT was initiated on the to see if the patient would have improved responsiveness with dialysis and would tolerate this better secondary to her significant hypotension. This was given over the next several days until she was pulled off again for hypotension on November 26. Although she did have improvement in her mental state with alertness manifested by eye opening she never had any purposeful movement, movement of any other extremities. She did not receive any sedation during this timeframe for evaluation. CT scan of the head was performed over these days demonstrating multifocal bilateral cerebral low-attenuation foci possible ischemic in etiology. In multiple discussions with power of reed or wind instrument tuner, her brother, it was determined that the patient would not have wanted to continue on in this state if quality of life had decreased significantly from her prior baseline. As she was unable to tolerate dialysis secondary to hypotension, even CRRT, and her wishes regarding her quality of life she was changed to comfort measures. She was extubated, and ultimately pressors removed. Medications were arranged in case she would need them for comfort. Family was able to be at bedside during withdrawal of some of these measures. She appeared comfortable, and passed on early in the morning on November 27. Diagnosis at was, CVA, sepsis, perforated viscus(stomach) status post repair, end-stage renal disease on hemodialysis, severe aortic stenosis Additional Data Confirmation of as documented by pronouncing clinician: no pulse and no respirations Family: contacted Additional persons at bedside: nursing staff Attending/PCP notified?: I am attending Was code activated?: No Autopsy requested?: No Advance directives?: Yes Hospice patient?: No Discharge Plan Discharge Patient Disposition: Condition: Stable Prescriptions: No Action Dulcolax (bisacodyl) 10 mg Suppository 10 mg W[place] DAILY PRN (Reason: Constipation) RF: 0 losartan 25 mg Tablet 12.5 mg PO DAILY@08 RF: 0 Tylenol 325 mg Tablet 650 mg PO QID PRN (Reason: Pain) RF: 0 levothyroxine 137 mcg tablet 137 mcg PO DAILY@05 RF: 0 aspirin 81 mg tablet,delayed release (DR/EC) 81 mg PO DAILY@08 RF: 0 B-complex with vitamin C Tablet 1 tab PO DAILY@08 RF: 0 nystatin [Nystop] 100,000 unit/gram powder 1 applic topical TID PRN (Reason: UNKNOWN) RF: 0 albuterol sulfate 90 mcg/actuation HFA aerosol inhaler 2 puff INHALATION Q4H PRN (Reason: Shortness Of Breath) RF: 0 fluticasone propionate 50 mcg/actuation Zebulon,Suspension 1 spray INTRANASAL BID PRN (Reason: Allergy Symptoms) RF: 0 Lantus Solostar U-100 Insulin 100 unit/mL (3 mL) insulin pen 20 unit SUBCUT BEDTIME RF: 0 Thyroid Complex 1 tab PO DAILY RF: 0 calcium acetate [Calphron] 667 mg Tablet 1,334 mg PO TIDWM 30 Days Qty: 60 RF: 0 furosemide [Lasix] 80 mg tablet 80 mg PO BID 30 Days Qty: 60 RF: 0 Referrals: Kash Munoz DO [Primary Care Provider] - Patient Instructions: Abdominal Pain (ED) DS Attestations Time Spent in /Discharge Care*: greater than 30 min Quality - AMI: AMI present?: No Quality - Stroke: CVA present?: Yes Symptom Onset Unknown: No Quality - VTE: VTE present?: No Deep Vein Thrombosis/Pulmonary Embolism Present on Admission: No Coding Level of Care Code Acute School Boat Driver for Chg Fwd Diagnoses S/P exploratory laparotomy Z98.890
== END 2020-11-27 06:00 | disposition expired | DRG 853 ==
LOC: ER 07:52 → OPS 07:54 → ICU 10:59
PROVIDERS: Emergency Medicine; Hospitalist; Internal Medicine Nephrology; Admitting Provider Surgery; Emergency Provider Family Medicine; PCP Electrodiagnostic Medicine; Visit Provider Internal Medicine
PROC: 0DU707Z Supplement Stomach, Pylorus with Autologous Tissue Substitute, Open Approach (ICD-10-PCS; CPT 49000; principal; 2020-11-20 08:05)
DX: A41.9 Sepsis, unspecified organism (principal); N18.6 End stage renal disease; R65.21 Severe sepsis with septic shock; J96.00 Acute respiratory failure, unspecified whether with hypoxia or hypercapnia; K72.00 Acute and subacute hepatic failure without coma; I63.9 Cerebral infarction, unspecified; K25.2 Acute gastric ulcer with both hemorrhage and perforation; K43.0 Incisional hernia with obstruction, without gangrene; E87.2 Acidosis; E87.1 Hypo-osmolality and hyponatremia; I25.10 Atherosclerotic heart disease of native coronary artery without angina pectoris; Z95.1 Presence of aortocoronary bypass graft; E11.22 Type 2 diabetes mellitus with diabetic chronic kidney disease; Z99.2 Dependence on renal dialysis; I50.9 Heart failure, unspecified; Z86.73 Personal history of transient ischemic attack (TIA), and cerebral infarction without residual deficits; E03.9 Hypothyroidism, unspecified; I95.9 Hypotension, unspecified; I35.0 Nonrheumatic aortic (valve) stenosis; Z88.0 Allergy status to penicillin; E83.42 Hypomagnesemia; Z51.5 Encounter for palliative care
CPT/HCPCS: 36415; 36416; 36592; 36600; 51702; 70450; 71045; 74176; 80048; 80051; 80053; 80069; 80202; 82330; 82803; 82805; 82962; 83605; 83690; 83735; 84100; 84443; 85007; 85014; 85018; 85025; 85610; 85730; 86706; 86803; 86850; 86900; 87040; 87070; 87205; 87340; 87641; 88305; 90935; 93005; 94002; 94003; 94799; 96372; 97163; C9113; J0694; J0743; J1642; J1644; J1815; J2250; J2270; J2370; J3010; J3370; J3475; J3490; J7030; J7040; J7050; P9041; P9047; Q3014; Q4081